=== PATIENT | female | born 1955 | race Caucasian/White ===

== ENCOUNTER 2024-01-27 10:11 | Day surgery (SDC) | payer OTHER, SELFPAY ==
[2024-01-16 06:56] VITALS: BMI 27.4
--- NOTE | 2024-01-23 12:25 | P.CONAN_ITS ---
Documented by User: Julita Jeffers NP 01/23/24 12:26 HPI - Anesthesia Eval Consult details Narrative: 68yo F for Bilateral Blepharoplasty [facility] Past Medical History Medical History (Updated 01/16/24 @ 06:53 by Jeny Johnson RN) Microscopic hematuria Osteoporosis Insomnia GERD (gastroesophageal reflux disease) Ganglion Colon polyp Alopecia Thyroid disease Surgical History Surgical History (Updated 01/16/24 @ 06:53 by Jeny Johnson RN) H/O excision of ganglion cyst History of section History of esophagogastroduodenoscopy (EGD) Social History Social History Are you a primary out of school hours care worker to a significant other at home: No Patient Tobacco Use Status: Former Tobacco user Use of substances other than those prescribed or required for medical reasons: No Advance Directives: No Advance Directives Information Provided: Yes Advance Directives on File: No Recently lost weight without trying: No Eating poorly because of decreased appetite: No Nutrition Risks: No Nutritional Risk Patient : No : No Meds Allergies Allergy/AdvReac Type Severity Reaction Status Date / Time latex Allergy Rash Verified 01/16/24 06:51 Penicillins AdvReac Unknown Verified 01/27/24 12:40 Home Medications ?Medication ?Instructions ?Recorded ?Confirmed ?Last Taken ?Type alendronate 70 mg tablet 70 mg PO QWEEK 01/16/24 01/16/24 Unknown History levothyroxine 75 mcg tablet 75 mcg PO DAILY 01/16/24 01/16/24 Unknown History pantoprazole 40 mg tablet,delayed 40 mg PO DAILY 01/16/24 01/16/24 01/27/24 History release polyethylene glycol 3350 17 17 g PO DAILY 01/16/24 01/16/24 Unknown History gram/dose oral powder (Miralax) Exam Height,Weight and Vital Signs: Height 5 ft 1.81 in Weight 67.6 kg Assessment and Plan Assessment Anesthesia Assessment: Chart Reviewed Documented by User: Vicki Lutz MD 01/27/24 13:41 [facility] Past Medical History Medical History (Updated 01/16/24 @ 06:53 by Jeny Johnson RN) Microscopic hematuria Osteoporosis Insomnia GERD (gastroesophageal reflux disease) Ganglion Colon polyp Alopecia Thyroid disease Family History Family history of problems with anesthesia: No Surgical History Surgical History (Updated 01/16/24 @ 06:53 by Jeny Johnson RN) H/O excision of ganglion cyst History of section History of esophagogastroduodenoscopy (EGD) History of Problems with Anesthesia: No Social History Social History Are you a primary out of school hours care worker to a significant other at home: No Patient Tobacco Use Status: Former Tobacco user Use of substances other than those prescribed or required for medical reasons: No Advance Directives: No Advance Directives Information Provided: Yes Advance Directives on File: No Recently lost weight without trying: No Eating poorly because of decreased appetite: No Nutrition Risks: No Nutritional Risk Patient : No : No Meds Allergies Allergy/AdvReac Type Severity Reaction Status Date / Time latex Allergy Rash Verified 01/16/24 06:51 Penicillins AdvReac Unknown Verified 01/27/24 12:40 Home Medications ?Medication ?Instructions ?Recorded ?Confirmed ?Last Taken ?Type alendronate 70 mg tablet 70 mg PO QWEEK 01/16/24 01/16/24 Unknown History levothyroxine 75 mcg tablet 75 mcg PO DAILY 01/16/24 01/16/24 Unknown History pantoprazole 40 mg tablet,delayed 40 mg PO DAILY 01/16/24 01/16/24 01/27/24 History release polyethylene glycol 3350 17 17 g PO DAILY 01/16/24 01/16/24 Unknown History gram/dose oral powder (Miralax) Exam Airway Mallampati Class: II TM Dist: >3cm Neck ROM: Full Partial: Upper Loose/Missing/Broken Teeth: Lower Assessment and Plan Assessment Anesthesia Assessment: Anesthesia Plan Discussed Final Anesthetic Review Family History of Problems with Anesthesia: No History of Problems with Anesthesia: No NPO: Yes ASA Class: II Final Preanesthetic Review: No Changes in Pt Med Stat, Meds/Allgs Chart Reviewed, Consent Obtained/Reviewed and Anes Risks/Benef Reviewed Patient Risk: Low Procedure Risk: Low Anesthetic Plan Anesthetic Plan: MAC: Disposition: Standard PACU
[2024-01-27] VITALS (10 sets, daily range): BP systolic 75–122; BP diastolic 54–77; PULSE 56–63; RESP 16; TEMP 36.1–36.2; O2SAT 94–98
[2024-01-27] MEDS: Lactated Ringers 500 ML 50 ML IV (13:11)
--- NOTE | 2024-01-27 13:57 | MHC.SHP ---
Pre-Procedural Eval Section A - 24 Hr Update-Section A only Date of Service: 01/27/24 The patient is an INPATIENT: No Changes since office visit: No Cold of Flu in the past 2 weeks, No New Medical Problems, No Changes in Medication and No Patient answered all questions The patient has been examined within 24 hours of the surgical procedure. 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 No changes have occurred unless specified. Time Spent With Patient Time: Total time managing care of this patient today ____ minutes.
--- NOTE | 2024-01-27 13:57 | HO.PNOPHT ---
Ophthalmology Procedure Procedure Date of Service: 01/27/24 Ophthalmology Viscoelastic: Not Applicable Ophthalmology Lenses: Not Applicable Procedure Notes: PREOPERATIVE DIAGNOSIS: Decreased visual field secondary to dermatochalasia POSTOPERATIVE DIAGNOSIS: Same PROCEDURE: Bilateral Blepharoplasty, upper eyelids SURGEON: Mio Izquierdo M.D. ANESTHESIA: Local with sedation ESTIMATED BLOOD LOSS: None COMPLICATIONS: None After obtaining informed consent, the patient was brought to the operating room and placed in supine position. After adequate sedation per Anesthesia, the eyes were prepped and draped in the usual sterile fashion. Attention was directed to the right eye where a double pinch test was completed to assure excess tissue was not removed from the upper lid. The margin was marked at the proposed incision sites. The left eye was done in a similar fashion. 2% Lidocaine with epinephrine was then instilled subcutaneously along the margin of the pre-marked skin incisions. #15 scalpel blade was then utilized to create the incisions. Using a combination of sharp and blunt dissection with Shailesh scissors, the epidermis was removed. Hemostasis was achieved with cautery. 6-0 plain suture was then utilized to close the incision site. Attention was directed to the left upper lid where subcutaneous 2% with Epinephrine Lidocaine was instilled along the pre-marked areas. A #15 scalpel blade was then utilized to create the incisions followed by sharp and blunt dissection with Shailesh scissors to remove the overlying epidermis. Hemostasis was achieved with cautery, followed by closure with 6-0 plain suture. The patient tolerated the procedure well. The patient will be followed up in the a.m. Topical antibiotic ointment was instilled over the incision sites and ice as tolerated for 48 hours.
[2024-01-27] MEDS: fentaNYL citrate/PF 100 MCG/2 ML VIAL 25 MCG IVPUSH (15:45)
[2024-01-27] MEDS: Acetaminophen 325 MG TABLET 650 MG PO (16:15)
--- OUTSIDE RECORDS SUMMARY | 2024-01-30 07:39 | XMS_ITS | Continuity of Care Document ---
Author Organization [facility] Address [address] [place] [address]- Care Team Providers Care Auto Porter Name Role Phone Carter RAMOS, [facility] Primary Care Physician Encounter [facility] Date(s): 08/29/22 - 09/28/22 [facility] [address] [place], [place] [address] Attending Physician: Zara Crocker Admitting Physician: Zara Crocker Referring Physician: AdmtrZara Allergies, Adverse Reactions, Alerts Substance Reaction Severity Status penicillin Vaginal discharge symptom Ac tive Immunizations Given and Recorded Vaccine Date Status Refusal Reason pneumococcal 20-valent conjugate vaccine 11/08/21 Recorded zoster vaccine, inactivated 07/06/21 Recorded zoster vaccine, inactivated 05/06/21 Recorded SARS-CoV-2 (COVID-19) mRNA BNT-162b2 vac 05/20/21 Recorded SARS-CoV-2 (COVID-19) mRNA BNT-162b2 vac 11/20/20 Recorded SARS-CoV-2 (COVID-19) mRNA BNT-162b2 vac 10/30/20 Recorded influenza virus vaccine, inactivated 04/13/21 Ludwig rded influenza virus vaccine, inactivated 04/30/19 Ludwig rded influenza virus vaccine, inactivated 04/11/18 Ludwig rded influenza virus vaccine, inactivated 04/19/17 Ludwig rded influenza virus vaccine, inactivated 04/25/16 Ludwig rded influenza virus vaccine, inactivated 05/12/14 Ludwig rded influenza virus vaccine, inactivated 04/14/13 Ludwig rded tetanus/diphtheria/pertussis, acel(Tdap) 1 01/11/17 Recorded 1Result Comment: given @ [facility] Medications alendronate 70 mg oral tablet 1 tablet = 70 mg, By Mouth, Every week, # 13 tablet, 6 Refills, Maintenance, 07/18/22 12:28:00 EST,Tablet, [facility]/pharmacy #[id number], Partial fill upon patient request if the prescription is for a scheduleII opioid drug., 159, cm, 04/10/22 9:49:00 EDT, Hei... Start Date: 07/18/22 Status: Ordered calcium-vitamin D 600 mg-400 intl units oral tablet 1 tablet, By Mouth, 2 times a day, # 60 tablet, 11 Refills, Maintenance, 07/18/22 12:28:00 EST, Tablet, [id number], Partial fill upon patient request if the prescription is for a schedule II opioid drug., 1 tablet By Mouth 2 times a day, 159,... Start Date: 07/18/22 Status: Ordered Colace sodium 100 mg oral capsule 100 mg, 1, capsule, By Mouth, 2 times a day, PRN, # 100 capsule, Refills 2, Tot. Refills 2, Maintenance, for constipation, 03/27/22 8:31:00 EDT, Route to Pharmacy Electronically, [facility]/pharmacy #[id number], Partial fill upon patient request if the prescriptio... Start Date: 03/27/22 Status: Ordered levothyroxine 75 mcg (0.075 mg) oral tablet 1 tablet, By Mouth, Daily, # 30 tablet, 5 Refills, 01/10/22 14:47:00 EDT, [id number], 159, cm, 12/26/21 14:40:00 EDT, Height, 71.1, kg, 11/20/21 8:24:00 EDT, Dry Weight Start Date: 01/10/22 Status: Ordered levothyroxine 75 mcg (0.075 mg) oral tablet 1 tablet = 75 mcg, By Mouth, Daily, # 30 tablet, 1 Refills, Maintenance, 11/10/21 13:03:00 EDT, Tablet, [facility]/pharmacy #[id number], Partial fill upon patient request if the prescription is for a schedule II opioid drug., 159, cm, 11/08/21 8:32:00 EDT, Height Start Date: 11/10/21 Status: Ordered methocarbamol 750 mg oral tablet 2 tablet = 1,500 mg, By Mouth, 3 times a day, # 84 tablet, 0 Refills, Maintenance, 12/26/21 14:41:00 EDT, Tablet, Partial fill upon patient request if the prescription is for a schedule II opioid drug. Start Date: 12/26/21 Stop Date: 01/09/22 Status: Ordered pantoprazole 40 mg oral delayed release tablet 1 tablet, By Mouth, Daily, # 90 tablet, 1 Refills, 06/04/22 15:58:00 EDT, 159, cm, 04/10/22 9:49:00EDT, Height, 71.1, kg, 11/20/21 8:24:00 EDT, Dry Weight Start Date: 06/04/22 Status: Ordered PEG-3350 with Electrolytes (Eqv-NuLYTELY) oral powder for reconstitution See Instructions, No orange or lemon please. Mix powder with water according to the product label. Follow the [facility] instructions stating when to drin k the prep fluid on the evening befoer the colonoscopy. 8 oz every 20 minutes., # 1 each, 0 Refi... Start Date: 03/27/22 Status: Ordered Senna-Time 8.6 mg oral tablet 1 OR 2 TABLETS, By Mouth, Daily at bedtime, PRN NEEDED FOR CONSTIPATION, # 60 tablet, 0 Refills,Maintenance, 04/25/22 20:10:00 EDT, [id number], 159, cm, 04/10/22 9:49:00 EDT, Height, 71.1, kg, 11/20/21 8:24:00 EDT, Dry Weight Start Date: 04/25/22 Status: Ordered Problem List Condition Confirmation Course Effective Dates Status H ealth Status Informant Alopecia Confirmed Active Anemia Confirmed Active Hypothyroid Confirmed Active Ganglion of left ankle Confirmed Active GERD without esophagitis Confirmed Active Dyslipidemia Confirmed Active Sacroiliitis Confirmed Active Osteoporosis Confirmed Active Acquired hypothyroidism Confirmed Active Insomnia Confirmed Active Reflux Confirmed Active Social History Social History Type Response Smoking Status Former smoker, quit more than 30 days ago; Other: quit smoking 15 years ago; entered on: 12/16/19 Sex Note * Event Display: MM Mammogram Authored Date: * Event Display: MM Mammogram Authored Date: * Event Display: MM Mammogram Authored Date: * Event Display: Non BH Lab Results Authored Date: * Event Display: Non BH Lab Results Authored Date: US Breast * Event Display: Ultrasound Breast Authored Date: * Event Display: Ultrasound Breast Authored Date: Patient Care team information Care Team Personnel Name: Kleber aMchado MD Position: [facility] Primary Care Physician Member Role: PCP Address: Address: [address] [place] [address] Adult [place] [address]- Care Team Related Persons Name: KIM WILD Address: home [address] [place] [id number] Name: INESSA HOLLEY Address: [place] [address]
--- OUTSIDE RECORDS SUMMARY | 2024-01-30 07:39 | XMS_ITS | Continuity of Care Document ---
Author Organization [facility] Address [address] [place] [address]- Care Team Providers Care Optical Glass Inspector Name Role Phone Kleber Machado MD Primary Care Physician Encounter [facility] Date(s): 07/18/22 - 08/17/22 [facility] [address] [place], [place] [address] Attending Physician: Zara Crocker Admitting Physician: Admtr, ArYonas Referring Physician: Admtr, Ar8 Allergies, Adverse Reactions, Alerts Substance Reaction Severity [...] tablet, 6 Refills, Maintenance, 07/18/22 12:28:00 EST,Tablet, [facility]/pharmacy #[id number], Partial fill upon patient request if the prescription is for a scheduleII opioid drug., 159, cm, 04/10/22 9:49:00 EDT, Hei... Start Date: 07/18/22 Status: Ordered calcium-vitamin D 600 mg-400 intl units oral tablet 1 tablet, By Mouth, 2 times a day, # 60 tablet, 11 Refills, Maintenance, 07/18/22 12:28:00 EST, Tablet, [facility]/pharmacy #[id number], Partial fill upon patient [...] 03/27/22 8:31:00 EDT, Route to Pharmacy Electronically, [facility]/pharmacy #[id number], Partial fill upon patient request if the prescriptio... Start Date: 03/27/22 Status: Ordered levothyroxine 75 mcg (0.075 mg) oral tablet 1 tablet, By Mouth, Daily, # 30 tablet, 5 Refills, 01/10/22 14:47:00 EDT, [facility]/pharmacy #[id number], 159, cm, 12/26/21 14:40:00 EDT, Height, 71.1, kg, 11/20/21 8:24:00 EDT, Dry Weight Start Date: 01/10/22 Status: Ordered levothyroxine 75 mcg (0.075 mg) oral tablet 1 tablet = 75 mcg, By Mouth, Daily, # 30 tablet, 1 Refills, Maintenance, 11/10/21 13:03:00 EDT, Tablet, [facility]/pharmacy #[id number], Partial fill upon patient [...] according to the product label. Follow the [facility] instructions stating when to drin k the prep fluid on the evening befoer the colonoscopy. 8 oz every 20 minutes., # 1 each, 0 Refi... Start Date: 03/27/22 Status: Ordered Senna-Time 8.6 mg oral tablet 1 OR 2 TABLETS, By Mouth, Daily at bedtime, PRN NEEDED FOR CONSTIPATION, # 60 tablet, 0 Refills,Maintenance, 04/25/22 20:10:00 EDT, [id number], 159, cm, 04/10/22 9:49:00 EDT, Height, 71.1, [...] team information Care Team Personnel Name: Kleber Machado MD Position: S Primary Care Physician Member Role: PCP Address: Address: [address] [place] [address] Adult [place] [address]- Care Team Related Persons Name: KIM WILD Address: home [address] [place] [id number] Name: INESSA HOLLEY Address: [place] [address]
--- OUTSIDE RECORDS SUMMARY | 2024-01-30 07:39 | XMS_ITS | Continuity of Care Document ---
Author Organization [facility] Address [address] [place] [address]- Care Team Providers Care Client Service Representative Name Role Phone Mart Medeiros MD Primary Care Physician Encounter [facility] Date(s): 07/01/23 - 07/08/23 [facility] [address] [place], [place] [address] Attending Physician: Reba Madsen NP Allergies, Adverse Reactions, Alerts Substance Reaction Severity Status penicillin Vaginal discharge symptom Ac tive Immunizations Given and Recorded Vaccine Date Status Refusal Reason influenza virus vaccine, inactivated 04/04/23 Ludwig rded influenza virus vaccine, inactivated 04/03/22 Ludwig rded influenza virus vaccine, inactivated 04/13/21 Ludwig rded influenza virus vaccine, inactivated 04/30/19 Ludwig rded influenza virus vaccine, inactivated 04/11/18 Ludwig rded influenza virus vaccine, inactivated 04/19/17 Ludwig rded influenza virus vaccine, inactivated 04/25/16 Ludwig rded influenza virus vaccine, inactivated 05/12/14 Ludwig rded influenza virus vaccine, inactivated 04/14/13 Ludwig rded [id number] 12y+ bivalent booster vax 05/21/22 Recorded SARS-CoV-2 mRNA ([id number]-[id number]) vax 11/23/21 Recorded pneumococcal 20-valent conjugate vaccine 11/08/21 Recorded zoster vaccine, inactivated 07/06/21 Recorded zoster vaccine, inactivated 05/06/21 Recorded SARS-CoV-2 (COVID-19) mRNA BNT-162b2 vac 05/20/21 Recorded SARS-CoV-2 (COVID-19) mRNA BNT-162b2 vac 11/20/20 Recorded SARS-CoV-2 (COVID-19) mRNA BNT-162b2 vac 10/30/20 Recorded tetanus/diphtheria/pertussis, acel(Tdap) 1 01/11/17 Recorded 1Result Comment: given @ [facility] Medications acetaminophen 650 mg oral tablet, extended release 2 tablet, By Mouth, 3 times a day, PRN NEEDED, MODERATE PAIN., # 100 tablet, 0 Refills, Maintenance, 11/22/22 15:25:00 EDT, [id number], 157, cm, 11/15/22 8:07:00 EDT, Height, 71.1, kg, 11/20/21 8:24:00 EDT, Dry Weight Start Date: 11/22/22 Status: Ordered alendronate 70 mg oral tablet 1 tablet = 70 mg, By Mouth, Every week, # 13 tablet, 6 Refills, Maintenance, 07/18/22 12:28:00 EST,Tablet, [id number], Partial fill upon patient request if the prescription is for a scheduleII opioid drug., 159, cm, 04/10/22 9:49:00 EDT, Hei... Start Date: 07/18/22 Status: Ordered Knee sleeve/support Knee sleeve/support, See Instructions, # 1 each, Refills 0, Tot. Refills 0, Maintenance, diagnosis:Left knee Osteoarthritis, 05/21/23 10:47:00 EDT, Supply, 157, cm, 05/21/23 10:07:00 EDT, Height, 71.1, kg, 11/20/21 8:24:00 EDT, Dry Weight Start Date: 05/21/23 Status: Ordered levothyroxine 75 mcg (0.075 mg) oral tablet 1 tablet, By Mouth, Daily, # 90 tablet, 1 Refills, Maintenance, 05/17/23 16:51:00 EDT, [id number], 157, cm, 04/22/23 12:52:00 EDT, Height, 71.1, kg, 11/20/21 8:24:00 EDT, Dry Weight Start Date: 05/17/23 Status: Ordered MiraLax oral powder for reconstitution See Instructions, 1 packet By Mouth Daily as needed for constipation dissolve in water or juice, # 30 each, 5 Refills, Maintenance, 04/22/23 13:24:00 EDT, REC Powder, [id number], Partial fillupon patient request if the prescription is for a... Start Date: 04/22/23 Status: Ordered pantoprazole 40 mg oral delayed release tablet 1 tablet, By Mouth, Daily, # 90 tablet, 0 Refills, Maintenance, 02/13/23 9:10:00 EDT, Last script lost, early fill., 157, cm, 11/15/22 8:07:00 EDT, Height, 71.1, kg, 11/20/21 8:24:00 EDT, Dry Weight Start Date: 02/13/23 Status: Ordered Problem List Condition Confirmation Course Effective Dates Status H ealth Status Informant Alopecia Confirmed Active Ganglion of left ankle Confirmed Active GERD with esophagitis; rpt EGD due 2027 Confirmed Active Microscopic hematuria; [facility] Confirmed Active Osteoporosis Confirmed Active Colon polyp Confirmed Active Acquired hypothyroidism Confirmed Active Insomnia Confirmed Active Vital Signs Most recent to oldest [Reference Range]: 1 Height 157 cm (07/01/23 8:55 AM) Weight 67 kg (07/01/23 8:55 AM) Oxygen Saturation [94-100 %] 96 % (07/01/23 8:55 AM) Pulse Rate [55-90 bpm] 74 bpm (07/01/23 8:55 AM) Body Mass Index [18.5-24.99 kg/m2] 27.18 kg/m2 *H* (07/01/23 8:55 AM) Blood Pressure [90-138/55-84 mm Hg] 100/ 67mm Hg (07/01/23 8:55 AM) Mode of Delivery (Oxygen) Room air (07/01/23 8:55 AM) Blood pressure sites Arm, left (07/01/23 8:55 AM) Dry Weight 67 kg (07/01/23 8:55 AM) Weight Obtained Via Standing scale (07/01/23 8:55 AM) Social History Social History Type Response Smoking Status Former smoker, quit more than 30 days ago; Other: quit smoking more than 15 years ago; entered on: 04/22/23 Sex Note * Amy Reynoso: PERFORM, SIGN, VERIFY Event Display: Patient Education/Instruction Authored Date: [id number] [facility] *[facility] Clinical Summary Name KWASI WILD Age 67 Years 1955 PCP Mart Medeiros MD PCP [facility]# [id number] Visit Date 07/01/2023 08:35:00 Additional Instructions: Scheduled Appointments?? Future Appointments ?No Future Appointments Scheduled Follow-Up Instructions ?? Diagnosis Medications: Please continue your medications until treatment is completed or stopped by your provider. Discuss any questions related to medications with your provider. Medications to Continue with No Changes These medications were not printed or sent to your pharmacy Acetaminophen (acetaminophen 650 mg oral tablet, extended release) 2 tab(s) Oral 3 times a day as needed. MODERATE PAIN.. Refills: 0. Next Dose: Alendronate (alendronate 70 mg oral tablet) 1 tab(s) Oral every week. Refills: 6. Next Dose: Durable Medical Equipment (Knee sleeve/support) diagnosis: Left knee Osteoarthritis. Refills: 0. Next Dose: Levothyroxine (levothyroxine 75 mcg (0.075 mg) oral tablet) 1 tab(s) Oral Daily. Refills: 1. Next Dose: Pantoprazole (pantoprazole 40 mg oral delayed release tablet) 1 tab(s) Oral Daily. Refills: 0. Next Dose: Polyethylene Glycol 3350 (MiraLax oral powder for reconstitution) 1 packet By Mouth Daily as neededfor constipation dissolve in water or juice. Refills: 5. Next Dose: Allergy Info:?? penicillin Medications Given This Visit Future Orders ?No future orders Vital Signs Height 157 cm Weight 67 kg BMI 27.18 kg/m2 Blood Pressure 100 mm Hg/67 mm Hg Temperature Pulse Rate 74 bpm Respiratory Rate 02 Sat Mode of Delivery 96 %/Room air You can now view a summary of your hospital visit from the comfort of your home through a free online portal called [employer]. [employer] is a website that allows you to securely view your medical information including discharge summary, medications and follow-up visits. ??You can alsosend a secure electronic message to your doctor???s office to request appointments, renew medications or just ask a question. You can enroll at [email or web address] or register during your next office visit. Disclaimer:?? The information provided is of a general nature and is intended to be used in conjunction with the recommendations and advice of your health care practitioner. ??Every effort has been made to ensure that the information provided is accurate and complete at the time it is provided to you however, as your needs change, or, as new ??information becomes available, different or additional instructions may be required. If you have questions, please consult with your primary care provider or pharmacist, as appropriate. ??This information is not intended to serve as substitution for assessment and evaluation by a qualified health care provider. If you do not have a primary care provider, you may find a [facility] provider by calling [facility] [employer] Link at [phone]. [facility], in keeping with [facility] guidance, no longer requires face masks for staff, patientsor visitors in most situations. Similar to time spent indoors at other locations, there is the chance that you were exposed to respiratory viruses during your time with us (such as flu or COVID-19).? If you develop symptoms concerning for a viral respiratory infection, please seek testing (and treatment if indicated) from your medical provider or home test kit. For information about the plan of care including goals and instructions for your diagnosis, please see the patient education orders section of this document. Patient Education Materials?? The content of this educational material or handout may have been modified, supplemented, or adapted from its original content and format to support your individualized medical care. Patient Care team information Care Team Personnel Name: Mart Medeiros MD Position: S Physician - Primary Care Member Role: PCP Address: Address: [facility] [facility] [place] [address]- Care Team Related Persons Name: KIM WILD Address: [address] [place] [address] Name: INESSA HOLLEY Address: [place] [address]
--- OUTSIDE RECORDS SUMMARY | 2024-01-30 07:39 | XMS_ITS | Continuity of Care Document ---
Author Organization [facility] Address [address] [place] [address]- Care Team Providers Care Instructional Materials Director Name Role Phone Carter RAMOS, [facility] Primary Care Physician Encounter [facility] Date(s): 08/27/22 - 09/26/22 [facility] [address] [place], [place] [address] Allergies, Adverse Reactions, Alerts Substance Reaction Severity [...] 1 01/11/17 Recorded 1Result Comment: given @ [facility] Medications alendronate 70 mg oral tablet 1 [...] 11 Refills, Maintenance, 07/18/22 12:28:00 EST, Tablet, [id number], Partial fill upon patient request if [...] 03/27/22 8:31:00 EDT, Route to Pharmacy Electronically, [id number], Partial fill upon patient request if [...] 1 Refills, Maintenance, 11/10/21 13:03:00 EDT, Tablet, [facility][id number], Partial fill upon patient request if [...] according to the product label. Follow the [facility] instructions stating when to drin k the prep fluid on the evening befoer the colonoscopy. 8 oz every 20 minutes., # 1 each, 0 Refi... Start Date: 03/27/22 Status: Ordered Senna-Time 8.6 mg oral tablet 1 OR 2 TABLETS, By Mouth, Daily at bedtime, PRN NEEDED FOR CONSTIPATION, # 60 tablet, 0 Refills,Maintenance, 04/25/22 20:10:00 EDT, [id number], 159, cm, 04/10/22 9:49:00 EDT, Height, 71.1, [...] 15 years ago; entered on: 12/16/19 Sex Patient Care team information Care Team Personnel Name: Kleber Machado MD Position: S Primary Care Physician Member Role: PCP Address: Address: [address] [place] [address] Adult [facility] [place] [address]- Care Team Related Persons Name: KIM WILD Address: home [address] [place] [address] Name: INESSA HOLLEY Address: [place] [address]
--- OUTSIDE RECORDS SUMMARY | 2024-01-30 07:39 | XMS_ITS | Continuity of Care Document ---
Author Organization [facility] Address [address] [place] [address]- Care Team Providers Care Dean Of Women Name Role Phone Mart Medeiros MD Primary Care Physician Encounter [facility] Date(s): 05/20/23 - 06/19/23 [facility] [address] [place], [place] [address] Allergies, Adverse Reactions, Alerts Substance Reaction Severity [...] influenza virus vaccine, inactivated 04/14/13 Ludwig rded [id number] 12y+ bivalent booster vax 05/21/22 Recorded SARS-CoV-2 mRNA ([id number]) vax 11/23/21 Recorded pneumococcal 20-valent conjugate vaccine 11/08/21 Recorded zoster vaccine, inactivated 07/06/21 Recorded zoster vaccine, inactivated 05/06/21 Recorded SARS-CoV-2 (COVID-19) mRNA BNT-162b2 vac 05/20/21 Recorded SARS-CoV-2 (COVID-19) mRNA BNT-162b2 vac 11/20/20 Recorded SARS-CoV-2 (COVID-19) mRNA BNT-162b2 vac 3/28/21 Recorded tetanus/diphtheria/pertussis, acel(Tdap) 1 01/11/17 Recorded 1Result Comment: given @ [facility] Medications acetaminophen 650 mg oral tablet, extended release 2 tablet, By Mouth, 3 times a day, PRN NEEDED, MODERATE PAIN., # 100 tablet, 0 Refills, Maintenance, 11/22/22 15:25:00 EDT, [id number], 157, cm, 11/15/22 8:07:00 EDT, Height, 71.1, [...] EGD due 2027 Confirmed Active Microscopic hematuria; [facility] Confirmed Active Osteoporosis Confirmed Active Colon polyp Confirmed Active Acquired hypothyroidism Confirmed Active Insomnia Confirmed Active Social History Social History Type Response Smoking Status Former smoker, quit more than 30 days ago; Other: quit smoking more than 15 years ago; entered on: 04/22/23 Sex Patient Care team information Care Team Personnel Name: Mart Medeiros MD Position: [facility] Physician - Primary Care Member Role: PCP Address: Address: [address] [place] [address]- Care Team Related Persons Name: KIM WILD Address: [address] [place] [address] Name: INESSA HOLLEY Address: [place] [address]
--- OUTSIDE RECORDS SUMMARY | 2024-01-30 07:39 | XMS_ITS | Continuity of Care Document ---
Author Organization [facility] Address [address] [place] [address]- Care Team Providers Care Utility Engineer Name Role Phone Kleber Machado MD Primary Care Physician Encounter [facility] Date(s): 03/31/21 - 05/13/21 [facility] [address] [place] [address]- Attending Physician: Celso Dunbar MD Admitting Physician: Celso Dunbar MD Allergies, Adverse Reactions, Alerts Substance Reaction Severity Status penicillin Vaginal discharge symptom Ac tive Immunizations Given and Recorded Vaccine Date Status Refusal Reason SARS-CoV-2 (COVID-19) mRNA BNT-162b2 vac 11/20/20 Recorded SARS-CoV-2 (COVID-19) mRNA BNT-162b2 vac 10/30/20 Recorded tetanus/diphtheria/pertussis, acel(Tdap) 1 01/11/17 Recorded 1Result Comment: given @ [facility] Medications levothyroxine 0.05 mg oral tablet 1 tablet = 50 mcg, By Mouth, Daily, # 60 tablet, 6 Refills, Maintenance, 04/03/21 12:15:00 EDT, Tablet, [id number], Partial fill upon patient request if the prescription is for a schedule II opioid drug., 159, cm, 03/21/21 7:55:00 EDT, Height Start Date: 04/03/21 Status: Ordered omeprazole 20 mg oral enteric coated capsule 1 capsule, By Mouth, Daily, # 90 capsule, 11 Refills, Maintenance, 03/21/21 8:23:00 EDT, [id number], 159, cm, 03/21/21 7:55:00 EDT, Height Start Date: 03/21/21 Status: Ordered Problem List Condition Effective Dates Status Health Status Inform ant Acquired hypothyroidism(Confirmed) Active Alopecia(Confirmed) Active Anemia(Confirmed) Active Hypothyroid(Confirmed) Active Dyslipidemia(Confirmed) Active Ganglion of left ankle(Confirmed) Active GERD without esophagitis(Confirmed) Active Sacroiliitis(Confirmed) Active Insomnia(Confirmed) Active Reflux(Confirmed) Active Social History Social History Type Response Smoking Status Former smoker, quit more than 30 days ago; Other: quit smoking 15 years ago; entered on: 12/16/19 Sex
--- OUTSIDE RECORDS SUMMARY | 2024-01-30 07:39 | XMS_ITS | Continuity of Care Document ---
Author Organization [facility] Address [address] [place] [address]- Care Team Providers Care Visual Design Lead Name Role Phone Mala RAMOS, Mart Primary Care Physician Encounter [facility] Date(s): 01/14/24 - 01/21/24 [facility] [address] [place] [address]- Encounter Diagnosis Acute bronchitis with bronchospasm(Discharge Diagnosis) - 01/14/24 Attending Physician: Courtney Green MD Referring Physician: Mart Medeiros MD Allergies, Adverse Reactions, Alerts Substance Reaction Severity Status penicillin Vaginal discharge symptom Ac tive Latex Rash Active Immunizations Given and Recorded Vaccine Date Status [...] influenza virus vaccine, inactivated 04/14/13 Ludwig rded [id number] 12y+ bivalent booster vax 05/21/22 Recorded SARS-CoV-2 mRNA ([id number]) vax 11/23/21 Recorded pneumococcal 20-valent conjugate vaccine 11/08/21 Recorded zoster vaccine, inactivated 07/06/21 Recorded zoster vaccine, inactivated 05/06/21 Recorded SARS-CoV-2 (COVID-19) mRNA BNT-162b2 vac 05/20/21 Recorded SARS-CoV-2 (COVID-19) mRNA BNT-162b2 vac 11/20/20 Recorded SARS-CoV-2 (COVID-19) mRNA BNT-162b2 vac 10/30/20 Recorded tetanus/diphtheria/pertussis, acel(Tdap) 1 01/11/17 Recorded 1Result Comment: given @ [facility] Medications Aerochamber See Instructions, # 1 each, Maintenance, Use as directed with all inhalors. Dx: acute bronchitis with bronchospasm, 01/14/24 11:02:00 EDT, Supply, 157, cm, 01/14/24 10:24:00 EDT, Height, 67.6, kg, 01/07/24 8:47:00 EDT, Dry Weight Start Date: 01/14/24 Status: Ordered albuterol CFC free 90 mcg/inh inhalation aerosol 2, puffs, Inhalation, Every 4 hours, PRN, use with spacer chamber, # 1 each, Refills 0, Tot. Refills 0, Maintenance, 01/14/24 11:01:00 EDT, Route to Pharmacy Electronically, [id number], [facility]/pharmacy #[id number], may dispense any co... Start Date: 01/14/24 Stop Date: 02/13/24 Status: Ordered alendronate 70 mg oral tablet 1 tablet, By Mouth, Every week, # 12 tablet, 3 Refills, Maintenance, 09/09/23 22:32:00 EST, [facility], 157, cm, 07/01/23 8:55:00 EST, Height, 67, kg, 07/01/23 8:55:00 EST, Dry Weight Start Date: 09/09/23 Status: Ordered Azithromycin 5 Day Dose Pack 250 mg oral tablet See Instructions, as directed on package labeling 2 tablets first day then 1 tablet daily for 4 more days, # 6 tablet, 0 Refills, Maintenance, 01/14/24 11:01:00 EDT, Tablet, [facility]/pharmacy #[id number], Partial fill upon patient request if the prescription is... Start Date: 01/14/24 Status: Ordered Knee sleeve/support Knee sleeve/support, See Instructions, # 1 each, Refills 0, Tot. Refills 0, Maintenance, diagnosis:Left knee Osteoarthritis, 05/21/23 10:47:00 EDT, Supply, 157, cm, 05/21/23 10:07:00 EDT, Height, 71.1, kg, 11/20/21 8:24:00 EDT, Dry Weight Start Date: 05/21/23 Status: Ordered levothyroxine 75 mcg (0.075 mg) oral tablet 1 tablet, By Mouth, Daily, # 90 tablet, 0 Refills, Maintenance, 09/06/23 20:36:00 EST, [facility], 157, cm, 07/01/23 8:55:00 EST, Height, 67, kg, 07/01/23 8:55:00 EST, Dry Weight Start Date: 09/06/23 Status: Ordered MiraLax oral powder for reconstitution [...] tablet, By Mouth, Daily, # 90 tablet, 2 Refills, Maintenance, 09/12/23 15:07:00 EST, Last script lost, early fill., 157, cm, 07/01/23 8:55:00 EST, Height, 67, kg, 07/01/23 8:55:00 EST, Dry Weight Start Date: 09/12/23 Status: Ordered Problem List Condition Confirmation Course Effective Dates Status H ealth Status Informant Alopecia Confirmed Active Ganglion of left ankle Confirmed Active GERD with esophagitis; [facility] EGD due 2027 Confirmed Active Microscopic hematuria; [facility] Confirmed Active Osteoporosis Confirmed Active Colon polyp Confirmed Active Acquired hypothyroidism Confirmed Active Insomnia Confirmed Active Diagnosis Diagnosis Type Effective Dates Health Status Clinical Service Informant Acute bronchitis with bronchospasm Discharge Diagnosis 01/14/24 Vital Signs Most recent to oldest [Reference Range]: 1 Height 157 cm (01/14/24 10:24 AM) Oxygen Saturation [94-100 %] 100 % (01/14/24 10:24 AM) Pulse Rate [55-90 bpm] 70 bpm (01/14/24 10:24 AM) Blood Pressure [90-138/55-84 mm Hg] 109/ 74mm Hg (01/14/24 10:24 AM) Temperature [96.8-100.4 DegF] 98.1 DegF (01/14/24 10:24 AM) Mode of Delivery (Oxygen) Room air (01/14/24 10:24 AM) Blood pressure sites Arm, left (01/14/24 10:24 AM) Temperature Route Oral (01/14/24 10:24 AM) Social History Social History Type Response Smoking Status Former smoker, quit more than 30 days ago entered on: 01/07/24 Sex Note * Bernabe Soto: PERFORM Event Display: Patient Education/Instruction Authored Date: [id number] Ambulatory Adult Visit Summary [facility] [address] [place] [address] Name: KWASI WILD : 1955?? Visit: 01/14/2024 09:26?? Ambulatory Visit Instructions ?? Your Care Team Primary Care Provider Mart Medeiros MD? This Visit Provider [facility] Your Diagnosis Acute bronchitis with bronchospasm Vitals Signs Temperature: 98.1 DegF Height: 157 cm Pulse Rate: 70 bpm ?? Systolic Blood Pressure: 109 mm Hg ?? Diastolic Blood Pressure: 74 mm Hg ?? Oxygen Saturation: 100 % ?? Medications The list below reflects the information in our records and provided by you today along with any changes made during this visit. Please continue your medications until treatment is completed or stopped by your provider. If this is different from the information you have or there are other questions,please contact the prescribing provider. What How Much When Why Instructions New Albuterol (albuterol CFC free 90 mcg/ inh inhalation aerosol) 2 puff(s) Inhalation Every 4 hours as needed for Cough, Wheezing/Shortness of Breath Duration: 30 Days use with spacer chamber ?? Pickup at [facility]/pharmacy #[id number] New Azithromycin (Azithromycin 5 Day Dose Pack 250 mg oral tablet) See instructions as directed on package labeling 2 tablets first day then 1 tablet daily for 4 more days ?? Pickup at [facility]/pharmacy #1026 New Benzonatate (benzonatate 200 mg oral capsule) 1 capsule Oral 3 times a day as needed for as needed for cough Duration: 7 Days Pickup at [facility]/pharmacy #[id number] New Durable Medical Equipment (Aerochamber) See instructions Use as directed with all inhalors. Dx: acute bronchitis with bronchospasm ?? Pickup at [facility]/pharmacy #1026 New PredniSONE (predniSONE 20 mg oral tablet) 2 tab(s) Oral Daily Duration: 5 Days 1st dose now, then in AM daily. Take with food. ?? Pickup at [facility]/pharmacy #1026 Unchanged Alendronate (alendronate 70 mg oral tablet) 1 tab(s) Oral Every week Unchanged Durable Medical Equipment (Knee sleeve/ support) See instructions Unilateral primary osteoarthritis, left knee diagnosis: Left knee Osteoarthritis ?? Unchanged Levothyroxine (levothyroxine 75 mcg (0.075 mg) oral tablet) 1 tab(s) Oral Daily Unchanged Pantoprazole (pantoprazole 40 mg oral delayed release tablet) 1 tab(s) Oral Daily Unchanged Polyethylene Glycol 3350 (MiraLax oral powder for reconstitution) See instructions 1 packet By Mouth Daily as needed for constipation dissolve in water or juice ?? Pharmacy Information [facility]/pharmacy #[id number]: [address], [place] [phone] Medications and Immunizations Administered Medications Given During Visit No medications given during this visit.?? Allergies (NKA means No Known Allergies) Latex??(Rash) penicillin??(Vaginal discharge symptom) Education Materials Below is the list of Educational Leaflet Providered with your Visit summary. Web[employer] Ignite Patient Education - Using a Metered-Dose Inhaler with a Spacer?? Common Emergency Awareness Tips IS IT A STROKE? Act FAST and Check for these signs: FACE Does the face look uneven? ARM Does one arm drift down? SPEECH Does their speech sound strange? TIME Call at any sign of stroke ?? Heart Attack Signs Chest discomfort: Most heart attacks involve discomfort in the center of the chest and lasts more than a few minutes, or goes away and comes back. It can feel like uncomfortable pressure, squeezing, fullness or pain. Discomfort in upper body: Symptoms can include pain or discomfort in one or both arms, back, neck, jaw or stomach. Shortness of breath: With or without discomfort. Other signs: Breaking out in a cold sweat, nausea, or lightheaded. Remember, MINUTES DO MATTER. If you experience any of these heart attack warning signs, call to get immediate medical attention! ?? Smoking can increase your chances of developing chronic health problems and can cause harmful effects to other family members in your house. If you smoke, you are strongly encouraged to quit. Please call [employer] at [phone] or [phone] ([phone]) or log in to [email or web address] for referrals to smoking cessation programs. ?? The National Suicide Prevention Hotline is available 25/02 if you or someone you know needs to find a reason to keep living. By calling 8-268-783-RFinity (0016) you'll be connected to a skilled, trained counselor at a crisis center in your area. [facility] Portal You can view and manage your care through the patient portal or by using a health care aniceto of your choosing. [employer] is a website that allows you to securely view your medical information including your hospital discharge summary, office visit summaries, medications and follow-up visits. You can also request appointments, renew medications, and request access to your medical information using a health care aniceto of your choosing, or just ask a question. You can enroll at [email or web address] or register during your next office visit. [facility], in keeping with [facility] guidance, no longer requires face masks for staff, patientsor visitors in most situations. Similiar to time spent indoors at other locations, there is the chance that you were exposed to repiratory viruses during your time with us (such as flu or COVID-19). If you develop symptoms concerning for a viral respiratory infection, please seek testing (and treatment if indicated) from your medical provider or home test kit. ?? Disclaimer: The information provided is of a general nature and is intended to be used in conjunction with the recommendations and advice of your health care practitioner. Every effort has been made to ensure that the information provided is accurate and complete at the time it is provided to you however, as your needs change, or, as new information becomes available, different or additional instructions may be required. ?? If you have questions, please consult with your primary care provider or pharmacist, as appropriate. This information is not intended to serve as substitution for assessment and evaluation by a qualified health care provider. If you do not have a primary care provider, you may find a [facility] provider by calling [employer] at [phone]. * Courtney Green MD: PERFORM Event Display: Patient Education Leaflets Authored Date: Using a Metered-Dose Inhaler with a Spacer ?? [address]17 Using a Metered-Dose Inhaler with a Spacer To control asthma, you need to use your medicines the right way. Some medicines are inhaled using adevice called a metered-dose??inhaler (MDI). MDIs deliver medicine with a fine spray. Your healthcare provider has prescribed a special chamber or spacer to use with your inhaler. A spacer increases the amount of medicine that goes to your lungs by preventing it from landing on your tongue or the back of your mouth. This reduces the irritation to your throat. It helps increase the amount of medicine that makes it to your lungs. It may make your medicine work better. Steps for using an inhaler with a spacer Step 1: ??? Wash your hands. ??? Check the expiration date and the counter of the inhaler, if present. ??? Remove the cap from the inhaler. ??? Shake the inhaler well. If the inhaler is being used for the first time or has not been used for a while, prime it as directed by the product maker. Make sure to prime the inhaler in the air away from your face. ??? Check to make sure the metal canister is put correctly into the plastic boot, or irvin, of the inhaler. See the package insert for instructions. ??? Attach the spacer to the inhaler. Then remove the cap from the spacer mouthpiece. Step 2: ??? Breathe out normally, away from the spacer. ??? Put the mouthpiece of the spacer past your teeth and above your tongue. Close your lips tightly around it. ??? Keep your chin up or level. Step 3: ??? Press down on the canister 1 time to release the medicine ??? Then breathe in through your mouth as slowly and deeply as you can. This should take??about 5 to 10??seconds. If you breathe too quickly, you may hear a whistling sound in certain spacers. Step 4: ??? Take the spacer mouthpiece out of your mouth. Close your lips. ??? Hold your breath up to 10 seconds if you are able. ??? Slowly breathe out through your mouth. ??? After using your inhaler, rinse your mouth with water by swishing, gargling, and spitting out the water. Never swallow it. Inhaledcorticosteroids can cause a fungal infection called thrush in your mouth and throat. ??? Wash your hands again when you are done. ?? Important If you???re prescribed more than 1 puff of medicine at a time,??wait up to 60 seconds, or as directed by your healthcare provider, between puffs. This number may be different for different medicines.??Shake the inhaler again. Then repeat steps 2 to 4. You can find important information about the medicine in the package insert. This is the paper thatcomes with the medicine. If you use more than one inhaler, ask your healthcare provider which one to use first. Your healthcare provider or pharmacist can show you how to use your inhaler and spacer the right way. Know how many puffs are left in your inhaler. That way you won't run out of your medicine when you need it. Ask your provider how to know how many puffs are left. Keeping your inhaler and spacer clean will help to keep your inhaler working correctly. Read the package insert for care and cleaning instructions. ?? Last Reviewed Date: 2023 ?? 8305-7777 [employer]. All rights reserved. This information is not intended as a substitute for professional medical care. Always follow your healthcare professional's instructions. ?? Patient Care team information Care Team Personnel Name: Mart Medeiros MD Position: S Physician - Primary Care Member Role: PCP Address: Address: [address] [place] [address]- Care Team Related Persons Name: KIM WILD Address: home [address] [place] [address] Name: INESSA HOLLEY Address: [place] [address]
--- OUTSIDE RECORDS SUMMARY | 2024-01-30 07:39 | XMS_ITS | Continuity of Care Document ---
Author Organization [facility] Address [address] [place] [address]- Care Team Providers Care Skatesman Name Role Phone Not on Staff, PCP Primary Care Physician Unavail able [place] [facility] [place] 12/16/19 - 12/23/19 [facility] [address] [place] [address]- [facility] Encounter Diagnosis GERD without esophagitis(Discharge Diagnosis) - 12/16/19 Hypothyroidism, unspecified(Discharge Diagnosis) - 12/16/19 Strain of left groin(Discharge Diagnosis) - 12/16/19 Attending Physician: Kleber Machado MD Allergies, Adverse Reactions, Alerts Substance Reaction Severity Status penicillin Vaginal discharge symptom Ac tive Medications levothyroxine 75 mcg (0.075 mg) oral tablet 1 tablet = 75 mcg, By Mouth, Daily, # 30 tablet, 0 Refills, Maintenance, 12/16/19 10:19:00 EDT, Tablet, [id number] Start Date: 12/16/19 Status: Ordered omeprazole 20 mg oral enteric coated capsule 1 capsule = 20 mg, By Mouth, Daily, TAKE 1 CAPSULE BY MOUTH EVERY DAY, # 30 capsule, 0 Refills, Maintenance, 12/16/19 10:19:00 EDT, [id number] Start Date: 12/16/19 Status: Ordered Problem List Condition Effective Dates Status Health Status Inform ant Anemia(Confirmed) Active GERD without esophagitis(Confirmed) Active Hypothyroid(Confirmed) Active Reflux(Confirmed) Active Diagnosis Diagnosis Type Effective Dates Health Status Clinical Service Informant Hypothyroidism, unspecified Discharge Diagnosis 12/16/19 GERD without esophagitis Discharge Diagnosis 12/16/19 Strain of left groin Discharge Diagnosis 12/16/19 Procedures Procedure Date Related Diagnosis Body Site Status Caesarean section Complet ed Tendinitis of left hand C ompleted Social History Social History Type Response Smoking Status Former smoker, quit more than 30 days ago; Other: quit smoking 15 years ago; entered on: 12/16/19 Sex
--- OUTSIDE RECORDS SUMMARY | 2024-01-30 07:39 | XMS_ITS | Continuity of Care Document ---
Author Organization [facility] Address [address] [place] [address]- Care Team Providers Care Client Relations Representative Name Role Phone Mart Medeiros MD Primary Care Physician En[place] [facility] Date(s): 09/10/23 - 10/10/23 [facility] [address] [place], [place] [address] Allergies, Adverse Reactions, Alerts Substance Reaction [...] influenza virus vaccine, inactivated 04/14/13 Ludwig rded [id number] 12y+ bivalent booster vax 05/21/22 Recorded SARS-CoV-2 mRNA (uynjpiw-leow-svwcf) vax 11/23/21 Recorded pneumococcal 20-valent conjugate vaccine 11/08/21 Recorded zoster vaccine, inactivated 07/06/21 Recorded zoster vaccine, inactivated 05/06/21 Recorded SARS-CoV-2 (COVID-19) mRNA BNT-162b2 vac 05/20/21 Recorded SARS-CoV-2 (COVID-19) mRNA BNT-162b2 vac 11/20/20 Recorded SARS-CoV-2 (COVID-19) mRNA BNT-162b2 vac 10/30/20 Recorded tetanus/diphtheria/pertussis, acel(Tdap) 1 01/11/17 Recorded 1Result Comment: given @ [facility] Medications acetaminophen 650 mg oral tablet, extended release 2 tablet, By Mouth, 3 times a day, PRN NEEDED, MODERATE PAIN., # 100 tablet, 0 Refills, Maintenance, 11/22/22 15:25:00 EDT, [facility], 157, cm, 11/15/22 8:07:00 EDT, Height, 71.1, kg, 11/20/21 8:24:00 EDT, Dry Weight Start Date: 11/22/22 Status: Ordered alendronate 70 mg oral tablet 1 tablet, By Mouth, Every week, # 12 tablet, 3 Refills, Maintenance, 09/09/23 22:32:00 EST, [facility], 157, cm, 07/01/23 8:55:00 EST, Height, 67, kg, 07/01/23 8:55:00 EST, Dry Weight Start Date: 09/09/23 Status: Ordered calcium-vitamin D 600 mg-400 intl units oral tablet 1 tablet, By Mouth, 2 times a day, # 180 tablet, 3 Refills, Maintenance, 09/09/23 22:32:00 EST, [facility], 90, TAKE 1 TABLET BY MOUTH TWICE A DAY, 157, cm, 07/01/23 8:55:00 EST, Height, 67, kg,07/01/23 8:55:00 EST, Dry Weight Start Date: 09/09/23 Status: Ordered Knee sleeve/support Knee sleeve/support, See [...] Refills, Maintenance, 09/06/23 20:36:00 EST, [facility], 157, cm, 07/01/23 8:55:00 EST, Height, 67, [...] EGD due 2027 Confirmed Active Microscopic hematuria; [facility] Confirmed Active Osteoporosis Confirmed Active Colon [...] Primary Care Member Role: PCP Address: Address: [address] [place] [address]- Care Team Related Persons Name: KIM WILD Address: home [address] [place] [address] Name: INESSA HOLLEY Address: [place] [address]
--- OUTSIDE RECORDS SUMMARY | 2024-01-30 07:39 | XMS_ITS | Continuity of Care Document ---
Author Organization [facility] Address [address] [place] [address]- Care Team Providers Care Patent Clerk Name Role Phone Kleber Machado MD Primary Care Physician [id number]21[facility] [address] [place] [address]- [facility] Encounter Diagnosis GERD without esophagitis(Discharge Diagnosis) - 03/14/20 Acquired hypothyroidism(Discharge Diagnosis) - 03/14/20 Sacroiliitis(Discharge Diagnosis) - 03/14/20 Dyslipidemia(Discharge Diagnosis) - 03/14/20 Attending Physician: Kleber Machado MD Allergies, Adverse Reactions, Alerts Substance Reaction Severity Status penicillin Vaginal discharge symptom Ac tive Medications levothyroxine 75 mcg (0.075 mg) oral tablet 1 tablet = 75 mcg, By Mouth, Daily, # 90 tablet, 11 Refills, Maintenance, 01/18/20 16:26:00 EDT, Tablet, [id number] Start Date: 01/18/20 Status: Ordered omeprazole 20 mg oral enteric coated capsule 1 capsule = 20 mg, By Mouth, Daily, TAKE 1 CAPSULE BY MOUTH EVERY DAY, # 90 capsule, 11 Refills, Maintenance, 01/18/20 16:26:00 EDT, [id number] Start Date: 01/18/20 Status: Ordered Problem List Condition Effective Dates Status Health Status Inform ant Acquired hypothyroidism(Confirmed) Active Alopecia(Confirmed) Active Anemia(Confirmed) Active Hypothyroid(Confirmed) Active Dyslipidemia(Confirmed) Active GERD without esophagitis(Confirmed) Active Sacroiliitis(Confirmed) Active Reflux(Confirmed) Active Diagnosis Diagnosis Type Effective Dates Health Status Clinical Service Informant GERD without esophagitis Discharge Diagnosis 03/14/20 Acquired hypothyroidism Discharge Diagnosis 03/14/20 Sacroiliitis Discharge Diagnosis 03/14/20 Dyslipidemia Discharge Diagnosis 03/14/20 Vital Signs Most recent to oldest [Reference Range]: 1 Height 159.00 cm (03/14/20 10:21 AM) Weight 67.1 kg (03/14/20 10:21 AM) Oxygen Saturation [94-100 %] 97 % (03/14/20 10:21 AM) Pulse Rate [55-90 bpm] 67 bpm (03/14/20 10:21 AM) Body Mass Index [18.5-24.99] 26.54 *H* (03/14/20 10:21 AM) Blood Pressure [90-138/55-84 mm Hg] 114/ 71mm Hg (03/14/20 10:21 AM) Temperature [96.8-100.4 DegF] 96.9 DegF (03/14/20 10:21 AM) Blood pressure sites Arm, left (03/14/20 10:21 AM) Weight Obtained Via Standing scale (03/14/20 10:21 AM) Social History Social History Type Response Smoking Status Former smoker, quit more than 30 days ago; Other: quit smoking 15 years ago; entered on: 12/16/19 Sex
--- OUTSIDE RECORDS SUMMARY | 2024-01-30 07:39 | XMS_ITS | Continuity of Care Document ---
Author Organization [facility] Address [address] [place] [address]- Care Team Providers Care Parts Finisher Name Role Phone Kleber Machado MD Primary Care Physician [phone] [id number]20 [facility] [address] [place] [address]- [facility] Encounter Diagnosis Ganglion cyst(Discharge Diagnosis) - 04/27/20 Attending Physician: Kleber Machado MD Allergies, Adverse [...] Diagnosis Diagnosis Type Effective Dates Health Status Cl inical Service Informant Ganglion cyst Discharge Diagnosis 04/27/20 Vital Signs Most recent to oldest [Reference Range]: 1 Height 159.00 cm (04/27/20 3:36 PM) Weight 68.5 kg (04/27/20 3:36 PM) Oxygen Saturation [94-100 %] 98 % (04/27/20 3:36 PM) Pulse Rate [55-90 bpm] 73 bpm (04/27/20 3:36 PM) Body Mass Index [18.5-24.99] 27.1 *H* (04/27/20 3:36 PM) Blood Pressure [90-138/55-84 mm Hg] 110/ 60mm Hg (04/27/20 3:36 PM) Temperature [96.8-100.4 DegF] 97.8 DegF (04/27/20 3:36 PM) Mode of Delivery (Oxygen) Room air (04/27/20 3:36 PM) Blood pressure sites Arm, left (04/27/20 3:36 PM) Temperature Route Temporal (04/27/20 3:36 PM) Weight Obtained Via Standing scale (04/27/20 3:36 PM) Social History Social History Type Response Smoking Status Former smoker, quit more than 30 days ago; Other: quit smoking 15 years ago; entered on: 12/16/19 Sex
--- OUTSIDE RECORDS SUMMARY | 2024-01-30 07:39 | XMS_ITS | Continuity of Care Document ---
Author Organization [facility] Address [address] [place] [address]- Care Team Providers Care Deputy Sheriff/Investigator Name Role Phone Kleber Machado MD Primary Care Physician [place] [facility] - 04/26/22 [facility] [address] [place] [address]- Attending Physician: Zara Crocker Admitting Physician: AdmtrZara Referring Physician: Admtr, Ar8 Allergies, Adverse Reactions, [...] 1 01/11/17 Recorded 1Result Comment: given @ [facility] Medications Colace sodium 100 mg oral capsule 100 mg, 1, capsule, By Mouth, 2 times a day, PRN, # 100 capsule, Refills 2, Tot. Refills 2, Maintenance, for constipation, 03/27/22 8:31:00 EDT, Route to Pharmacy Electronically, [facility]/pharmacy #[id number], Partial fill upon patient request if the prescriptio... Start Date: 03/27/22 Status: Ordered levothyroxine 75 mcg (0.075 mg) oral tablet 1 tablet, By Mouth, Daily, # 30 tablet, 5 Refills, 01/10/22 14:47:00 EDT, [facility]/pharmacy #[id number], 159, cm, 12/26/21 14:40:00 EDT, Height, 71.1, kg, 11/20/21 8:24:00 EDT, Dry Weight Start Date: 01/10/22 Status: Ordered levothyroxine 75 mcg (0.075 mg) oral tablet 1 tablet = 75 mcg, By Mouth, Daily, # 30 tablet, 1 Refills, Maintenance, 11/10/21 13:03:00 EDT, Tablet, [facility]/pharmacy #[id number], Partial fill upon patient request [...] Mouth, Daily, # 90 tablet, 1 Refills, 159, cm, 11/20/21 8:24:00 EDT, Height, 71.1, kg,11/20/21 8:24:00 EDT, Dry Weight Start Date: 11/28/21 Status: Ordered PEG-3350 with Electrolytes (Eqv-NuLYTELY) oral powder for reconstitution See Instructions, No orange or lemon please. Mix powder with water according to the product label. Follow the [facility] instructions stating when to drin k the prep fluid on the evening befoer the colonoscopy. 8 oz every 20 minutes., # 1 each, 0 Refi... Start Date: 03/27/22 Status: Ordered Senna-Time 8.6 mg oral tablet 1 OR 2 TABLETS, By Mouth, Daily at bedtime, PRN NEEDED FOR CONSTIPATION, # 60 tablet, 0 Refills,Maintenance, 04/25/22 20:10:00 EDT, [id number], 159, cm, 04/10/22 9:49:00 EDT, Height, 71.1, kg, 11/20/21 8:24:00 EDT, Dry Weight Start Date: 04/25/22 Status: Ordered Problem List Condition Effective Dates Status Health Status Inform ant Alopecia(Confirmed) Active Anemia(Confirmed) Active Hypothyroid(Confirmed) Active Ganglion of left ankle(Confirmed) Active GERD without esophagitis(Confirmed) Active Dyslipidemia(Confirmed) Active Sacroiliitis(Confirmed) Active Acquired hypothyroidism(Confirmed) Active Insomnia(Confirmed) Active Reflux(Confirmed) Active Social History Social History Type Response Smoking Status Former smoker, quit more than 30 days ago; Other: quit smoking 15 years ago; entered on: 12/16/19 Sex Care Team Personnel Name: Kleber Machado MD Address: [address] [place] [address] Adult & Pediatric Medicine [address]
--- OUTSIDE RECORDS SUMMARY | 2024-01-30 07:39 | XMS_ITS | Continuity of Care Document ---
Author Organization [facility] Address [address] [place] [address]- Care Team Providers Care Cena Name Role Phone Carter RAMOS, [facility] Primary Care Physician Encounter [facility] Date(s): 01/23/23 - 02/22/23 [facility] [address] [place], [place] [address] Allergies, Adverse Reactions, Alerts Substance Reaction Severity Status penicillin Vaginal discharge symptom Ac tive Immunizations Given and Recorded Vaccine Date Status Refusal Reason [id number] 12y+ bivalent booster vax 05/21/22 Recorded influenza virus vaccine, inactivated 04/03/22 Ludwig rded influenza virus vaccine, inactivated 04/13/21 Ludwig rded influenza virus vaccine, inactivated 04/30/19 Ludwig rded influenza virus vaccine, inactivated 04/11/18 Ludwig rded influenza virus vaccine, inactivated 04/19/17 Ludwig rded influenza virus vaccine, inactivated 04/25/16 Ludwig rded influenza virus vaccine, inactivated 05/12/14 Ludwig rded influenza virus vaccine, inactivated 04/14/13 Ludwig rded SARS-CoV-2 mRNA ([id number]) vax 11/23/21 Recorded pneumococcal 20-valent conjugate vaccine [...] Refills, Maintenance, 11/22/22 15:25:00 EDT, [id number], 157, cm, 11/15/22 8:07:00 EDT, Height, 71.1, [...] day, 159,... Start Date: 07/18/22 Status: Ordered diclofenac 1% topical gel See Instructions, PLEASE SEE ATTACHED FOR DETAILED DIRECTIONS, # 300 Gm, 0 Refills, Maintenance, 11/22/22 15:25:00 EDT, [facility], 30, PLEASE SEE ATTACHED FOR DETAILED DIRECTIONS, 157, cm, 11/15/22 8:07:00 EDT, Height, 71.1, kg, 11/20/21 8:24:00... Start Date: 11/22/22 Status: Ordered levothyroxine 75 mcg (0.075 mg) oral tablet 1 tablet, By Mouth, Daily, # 90 tablet, 1 Refills, Maintenance, 11/15/22 20:06:00 EDT, [facility], 157, cm, 11/15/22 8:07:00 EDT, Height, 71.1, kg, 11/20/21 8:24:00 EDT, Dry Weight Start Date: 11/15/22 Status: Ordered Melatonin Daily at bedtime, 0 Refills, Maintenance, 11/15/22 8:41:00 EDT, Partial fill upon patient request if the prescription is for a schedule II opioid drug. Start Date: 11/15/22 Status: Ordered MiraLax oral powder for reconstitution See Instructions, 1 packet By Mouth Daily dissolve in water or juice, # 12 each, 0 Refills, Acute 01/17/24 9:11:00 EDT, 01/16/23 9:11:00 EDT, REC Powder, [id number], Partial fill upon patientrequest if the prescription is for a schedule II o... Start Date: 01/16/23 Stop Date: 01/17/24 Status: Ordered MiraLax oral powder for reconstitution = 17 Gm, By Mouth, Daily, PRN Constipation, dissolve in water before taking, # 255 Gm, 0 Refills, Acute 01/16/24 14:53:00 EDT, 01/15/23 14:53:00 EDT, REC Powder, [id number], Partial fill uponpatient request if the prescription is for a schedu... Start Date: 01/15/23 Stop Date: 01/16/24 Status: Ordered pantoprazole 40 mg oral delayed [...] Active Anemia Confirmed Active Hypothyroid Confirmed Active Left foot pain Confirmed Active Ganglion of left ankle Confirmed Active GERD without esophagitis Confirmed Active Dyslipidemia Confirmed Active Sacroiliitis Confirmed Active Osteoporosis Confirmed Active *[id number] Rivet Hole Puncher Nasima Berumen Confirmed Active Acquired hypothyroidism Confirmed Active Insomnia Confirmed Active Reflux Confirmed Active Social History Social History Type Response Smoking Status Former smoker, quit more than 30 days ago; Other: quit smoking 15 years ago; entered on: 12/16/19 Sex Patient Care team information Care Team Personnel Name: Kleber Machado MD Position: S Physician - Primary Care Member Role: PCP Address: Address: [address] [place] [address] Adult [place] [address]- Care Team Related Persons Name: KIM WILD Address: home [address] [place] [address] Name: INESSA H[place]LEY Address: [place] [address]
--- OUTSIDE RECORDS SUMMARY | 2024-01-30 07:39 | XMS_ITS | Continuity of Care Document ---
Author Organization [facility] Address [address] [place] [address]- Care Team Providers Care Wax Pattern Coater Name Role Phone Kleber Machado MD Primary Care Physician [place] [facility] [place] 02/28/22 - 03/30/22 [facility] [address] [place], [place] [address] Allergies, Adverse Reactions, Alerts Substance Reaction [...] Comment: given @ [facility] Medications Colace sodium 100 mg oral capsule 100 mg, 1, capsule, By Mouth, 2 times a day, PRN, # 100 capsule, Refills 2, Tot. Refills 2, Maintenance, for constipation, 03/27/22 8:31:00 EDT, Route to Pharmacy Electronically, [facility]/pharmacy #[id number], Partial fill upon patient [...] 1 Refills, Maintenance, 11/10/21 13:03:00 EDT, Tablet, [id number], Partial fill upon [...] Dry Weight Start Date: 11/28/21 Status: Ordered Paxlovid 150 mg-100 mg oral tablet See Instructions, 300mg nirmatrelvir (two 150mg tablets) with 100mg ritonavir (one tablet). All 3 tablets taken together twice daily By Mouth for 5 days, with or without food, # 30 tablet, 0 Refills,Maintenance, 03/01/22 11:55:00 EDT, [facility] Start Date: 03/01/22 Status: Ordered PEG-3350 with Electrolytes (Eqv-NuLYTELY) oral powder for reconstitution See Instructions, No orange or lemon please. Mix powder with water according to the product label. Follow the [facility] instructions stating when to drin k the prep fluid on the evening befoer the colonoscopy. 8 oz every 20 minutes., # 1 each, 0 Refi... Start Date: 03/27/22 Status: Ordered Senna 8.6 mg oral tablet 1 or 2 tablets, By Mouth, Daily at bedtime, PRN, # 60 tablet, Refills 0, Tot. Refills 0, Acute, Constipation, 03/28/23 8:44:00 EDT, 03/27/22 8:44:00 EDT, Route to Pharmacy Electronically, [facility]/pharmacy #[id number] Tablet, Partial fill upon patient request if... Start Date: 03/27/22 Stop Date: 03/28/23 Status: Ordered Problem List Condition Effective Dates [...] Team Personnel Name: Kleber Machado MD Address: [address] [place] [address] Adult & Pediatric Medicine [address]
--- OUTSIDE RECORDS SUMMARY | 2024-01-30 07:39 | XMS_ITS | Continuity of Care Document ---
Author Organization [facility] Address [address] [place] [address]- Care Team Providers Care Academic Registrar Name Role Phone Kleber Machado MD Primary Care Physician En[place] [facility] [place] Date(s): 07/20/20 - 08/19/20 [facility] [address] [place], [place] [address] [[email or web address] Attending Physician: Zara Crocker Admitting Physician: Zara Crocker Referring Physician: AdmtrZara Allergies, Adverse Reactions, Alerts Substance Reaction Severity Status penicillin Vaginal discharge symptom Ac tive Immunizations Given and Recorded Vaccine Date Status Refusal Reason tetanus/diphtheria/pertussis, acel(Tdap) 1 01/11/17 Recorded 1Result Comment: given @ [facility] Medications levothyroxine 75 mcg (0.075 mg) oral [...] without esophagitis(Confirmed) Active Sacroiliitis(Confirmed) Active Reflux(Confirmed) Active Social History Social History Type Response Smoking Status Former smoker, quit more than 30 days ago; Other: quit smoking 15 years ago; entered on: 12/16/19 Sex
--- OUTSIDE RECORDS SUMMARY | 2024-01-30 07:39 | XMS_ITS | Continuity of Care Document ---
Author Organization [facility] Address [address] [place] [address]- Care Team Providers Care Hat Cutter Name Role Phone Kleber Machado MD Primary Care Physician [phone] [place] [facility] [place] Date(s): 04/25/20 - 05/25/20 [facility] [address] [place] [address]- [facility] Allergies, Adverse Reactions, Alerts Substance Reaction Severity [...]
--- OUTSIDE RECORDS SUMMARY | 2024-01-30 07:39 | XMS_ITS | Continuity of Care Document ---
Author Organization [facility] Address [address] [place] [address]- Care Team Providers Care Business Office Coordinator Name Role Phone Mart Medeiros MD Primary Care Physician [phone] [place] [facility] [place] 05/21/23 - 06/20/23 [facility] [address] [place], [place] [address] Attending Physician: Zara Crocker Admitting Physician: [...] influenza virus vaccine, inactivated 04/14/13 Ludwig rded [id number] 12y+ bivalent booster vax 05/21/22 Recorded SARS-CoV-2 mRNA ([id number]) vax 11/23/21 Recorded pneumococcal 20-valent conjugate vaccine 11/08/21 Recorded zoster vaccine, inactivated 07/06/21 Recorded zoster vaccine, inactivated 05/06/21 Recorded SARS-CoV-2 (COVID-19) mRNA BNT-162b2 vac 05/20/21 Recorded SARS-CoV-2 (COVID-19) mRNA BNT-162b2 vac 11/20/20 Recorded SARS-CoV-2 (COVID-19) mRNA BNT-162b2 vac 10/30/20 Recorded tetanus/diphtheria/pertussis, acel(Tdap) 1 01/11/17 Recorded 1Result Comment: given @ [facility] Medications acetaminophen 650 mg oral tablet, extended release 2 tablet, By Mouth, 3 times a day, PRN NEEDED, MODERATE PAIN., # 100 tablet, 0 Refills, Maintenance, 11/22/22 15:25:00 EDT, [id number], 157, cm, 11/15/22 8:07:00 EDT, Height, 71.1, [...] EGD due 2027 Confirmed Active Microscopic hematuria; [facility] Confirmed Active Osteoporosis Confirmed Active Colon polyp Confirmed Active Acquired hypothyroidism Confirmed Active Insomnia Confirmed Active Social History Social History Type Response Smoking Status Former smoker, quit more than 30 days ago; Other: quit smoking more than 15 years ago; entered on: 04/22/23 Sex Laboratory * Event Display: Non Lab Results Authored Date: * Event Display: Non Lab Results Authored Date: US Breast * Event Display: Ultrasound Breast Authored Date: * Event Display: Ultrasound Breast Authored Date: MG Breast Views * Event Display: MM Mammogram Authored Date: * Event Display: MM Mammogram Authored Date: * Event Display: MM Mammogram Authored Date: Patient Care team information Care Team Personnel Name: Mart Medeiros MD Position: S Physician - Primary Care Member Role: PCP Address: Address: [address] [place] [address]- Care Team Related Persons Name: KIM WILD Address: home [address] [place] [address] Name: INESSA HOLLEY Address: [place] [address]
--- OUTSIDE RECORDS SUMMARY | 2024-01-30 07:39 | XMS_ITS | Continuity of Care Document ---
Author Organization [facility] Address [address] [place] [address]- Care Team Providers Care Medical Microbiologist Name Role Phone Kleber Machado MD Primary Care Physician En[place] [facility] [place] [facility] R [id number] Date(s): 11/20/21 - 11/27/21 [facility] [address] [place], [place] [address] Encounter Diagnosis Urinary frequency(Discharge Diagnosis) - 11/20/21 Elevated blood sugar level(Discharge Diagnosis) - 11/20/21 Attending Physician: Praveena BOYD, [place] Referring Physician: Kleber Machado MD Allergies, Adverse Reactions, Alerts Substance Reaction Severity Status penicillin Vaginal discharge symptom Ac tive Immunizations Given and Recorded Vaccine Date Status Refusal Reason zoster vaccine, inactivated 07/06/21 Recorded zoster vaccine, [...] 1 01/11/17 Recorded 1Result Comment: given @ [facility] Medications levothyroxine 75 mcg (0.075 mg) oral tablet 1 tablet = 75 mcg, By Mouth, Daily, # 30 tablet, 1 Refills, Maintenance, 11/10/21 13:03:00 EDT, Tablet, [facility]/pharmacy #[id number], Partial fill upon patient request if the prescription is for a schedule II opioid drug., 159, cm, 11/08/21 8:32:00 EDT, Height Start Date: 11/10/21 Status: Ordered pantoprazole 40 mg oral delayed release tablet 1 tablet = 40 mg, By Mouth, Daily, # 30 tablet, 3 Refills, Maintenance, 11/08/21 9:03:00 EDT, [facility] Tablet, 159, cm, 11/08/21 8:32:00 EDT, Height Start Date: 11/08/21 Status: Ordered traZODone 50 mg oral tablet 25 mg, 0.5, tablet, By Mouth, Daily at bedtime, PRN, # 45 tablet, Refills 3, Tot. Refills 3, Maintenance, Sleep, 11/08/21 9:04:00 EDT, Route to Pharmacy Electronically, [facility]/pharmacy #[id number], Partial fill upon patient request if the prescription is for a... Start Date: 11/08/21 Status: Ordered Problem List Condition Effective Dates Status Health Status Inform ant Alopecia(Confirmed) Active Anemia(Confirmed) Active Hypothyroid(Confirmed) Active Ganglion of left ankle(Confirmed) Active GERD without esophagitis(Confirmed) Active Dyslipidemia(Confirmed) Active Sacroiliitis(Confirmed) Active Acquired hypothyroidism(Confirmed) Active Insomnia(Confirmed) Active Reflux(Confirmed) Active Diagnosis Diagnosis Type Effective Dates Health Status Cl inical Service Informant Urinary frequency Discharge Diagnosis 11/20/21 Elevated blood sugar level Discharge Diagnosis 11/20/21 Vital Signs Most recent to oldest [Reference Range]: 1 Height 159.00 cm (11/20/21 8:24 AM) Weight 71.1 kg (11/20/21 8:24 AM) Oxygen Saturation [94-100 %] 100 % (11/20/21 8:24 AM) Pulse Rate [55-90 bpm] 65 bpm (11/20/21 8:24 AM) Body Mass Index [18.5-24.99] 28.12 *H* (11/20/21 8:24 AM) Blood Pressure [90-138/55-84 mm Hg] 115/ 70mm Hg (11/20/21 8:24 AM) Temperature [96.8-100.4 DegF] 96.8 DegF (11/20/21 8:24 AM) Mode of Delivery (Oxygen) Room air (11/20/21 8:24 AM) Blood pressure sites Arm, right (11/20/21 8:24 AM) Temperature Route Temporal (11/20/21 8:24 AM) Dry Weight 71.1 kg (11/20/21 8:24 AM) Weight Obtained Via Standing scale (11/20/21 8:24 AM) Social History Social History Type Response Smoking Status Former smoker, quit more than 30 days ago; Other: quit smoking 15 years ago; entered on: 12/16/19 Sex
--- OUTSIDE RECORDS SUMMARY | 2024-01-30 07:39 | XMS_ITS | Continuity of Care Document ---
Author Organization [facility] Address [address] [place] [address]- Care Team Providers Care Instructional Services Librarian Name Role Phone Carter RAMOS, Kleber Primary Care Physician Encounter [facility] Date(s): 10/18/22 - 11/17/22 [facility] [address] [place] [address]- [place] Allergies, Adverse Reactions, Alerts Substance Reaction Severity Status penicillin Vaginal discharge symptom Ac tive Immunizations Given and Recorded Vaccine Date Status Refusal Reason [id number] 12y+ bivalent booster vax 05/21/22 Recorded influenza [...] vaccine, inactivated 04/14/13 Ludwig rded SARS-CoV-2 mRNA ([id number]) vax 11/23/21 Recorded pneumococcal 20-valent conjugate vaccine 11/08/21 Recorded zoster vaccine, inactivated 07/06/21 Recorded zoster vaccine, inactivated 05/06/21 Recorded SARS-CoV-2 (COVID-19) mRNA BNT-162b2 vac 05/20/21 Recorded SARS-CoV-2 (COVID-19) mRNA BNT-162b2 vac 11/20/20 Recorded SARS-CoV-2 (COVID-19) mRNA BNT-162b2 vac 10/30/20 Recorded tetanus/diphtheria/pertussis, acel(Tdap) 1 01/11/17 Recorded 1Result Comment: given @ [facility] Medications alendronate 70 mg oral tablet 1 [...] day, 159,... Start Date: 07/18/22 Status: Ordered levothyroxine 75 mcg (0.075 mg) [...] opioid drug. Start Date: 11/15/22 Status: Ordered pantoprazole 40 mg oral delayed release tablet 1 tablet, By Mouth, Daily, # 90 tablet, 1 Refills, 06/04/22 15:58:00 EDT, 159, cm, 04/10/22 9:49:00EDT, Height, 71.1, kg, 11/20/21 8:24:00 EDT, Dry Weight Start Date: 06/04/22 Status: Ordered Tylenol 8 Hour 650 mg oral tablet, extended release 2 tablet = 1,300 mg, By Mouth, 3 times a day, PRN Pain , Moderate, # 100 tablet, 0 Refills, Maintenance, 11/15/22 8:43:00 EDT, ER Tablet, [id number], Partial fill upon patient request if the prescription is for a schedule II opioid drug., 157,... Start Date: 11/15/22 Status: Ordered Voltaren Arthritis Pain 1% topical gel = 2 Gm, Topically, 4 times a day, not to exceed 16 grams/day/single joint of lower extremities, # 240 Gm, 0 Refills, Maintenance, 11/15/22 8:43:00 EDT, [id number], Partial fill upon patient request if the prescription is for a schedule II opio... Start Date: 11/15/22 Status: Ordered Problem List Condition Confirmation Course [...] Team Personnel Name: Kleber Machado MD Position: [facility] Primary Care Physician Member Role: PCP Address: Address: [address] [place] [address] Adult & [place] [address]- Care Team Related Persons Name: KIM WILD Address: home [address] [place] [address] Name: INESSA HOLLEY Address: [place] [address]
--- OUTSIDE RECORDS SUMMARY | 2024-01-30 07:39 | XMS_ITS | Continuity of Care Document ---
Author Organization [facility] Address [address] [place] [address]- Care Team Providers Care Oracle Apex Developer Name Role Phone Kleber Machado MD Primary Care Physician En[place] [facility] [place]s): 11/08/21 - 11/15/21 [facility] [address] [place] [place] [address] Encounter Diagnosis GERD without esophagitis(Discharge Diagnosis) - 11/08/21 Postprocedural hypothyroidism(Discharge Diagnosis) - 11/08/21 Dermatitis of right ear canal(Discharge Diagnosis) - 11/08/21 Other hyperlipidemia(Discharge Diagnosis) - 11/08/21 Primary insomnia(Discharge Diagnosis) - 11/08/21 Attending Physician: Kleber Machado MD Allergies, Adverse [...] 1 01/11/17 Recorded 1Result Comment: given @ [facility] Medications acetic acid-hydrocortisone otic 2%-1% solution See Instructions, 3 drops Right ear 4 times a day 5 days, # 10 mL, 0 Refills, Acute 11/22/21 9:03:00 EDT, 11/08/21 9:02:00 EDT, Solution, [id number], Partial fill upon patient request if the prescription is for a schedule II opioid drug., 3 . Start Date: 11/08/21 Stop Date: 11/22/21 Status: Ordered levothyroxine 75 mcg (0.075 mg) [...] 11/08/21 9:04:00 EDT, Route to [facility], [id number], Partial fill upon patient request [...] Service Informant GERD without esophagitis Discharge Diagnosis 11/08/21 Postprocedural hypothyroidism Discharge Diagnosis 11/08/21 Other hyperlipidemia Discharge Diagnosis 11/08/21 Dermatitis of right ear canal Discharge Diagnosis 11/08/21 Primary insomnia Discharge Diagnosis 11/08/21 Vital Signs Most recent to oldest [Reference Range]: 1 Height 159.00 cm (11/08/21 8:32 AM) Weight 72.8 kg (11/08/21 8:32 AM) Oxygen Saturation [94-100 %] 97 % (11/08/21 8:32 AM) Pulse Rate [55-90 bpm] 65 bpm (11/08/21 8:32 AM) Body Mass Index [18.5-24.99] 28.8 *H* (11/08/21 8:32 AM) Blood Pressure [90-138/55-84 mm Hg] 102/ 74mm Hg (11/08/21 8:32 AM) Blood pressure sites Arm, right (11/08/21 8:32 AM) Social History Social History Type Response Smoking Status Former smoker, quit more than 30 days ago; Other: quit smoking 15 years ago; entered on: 12/16/19 Sex
--- OUTSIDE RECORDS SUMMARY | 2024-01-30 07:40 | XMS_ITS | Continuity of Care Document ---
Author Organization [facility] Address [address] [place] [address]- Care Team Providers Care Floorleader Name Role Phone Kleber Machado MD Primary Care Physician [phone] En[place] [facility] [place] Date(s): 11/08/21 - 12/08/21 [facility] [address] [place], [place] [address] Allergies, Adverse Reactions, Alerts Substance [...] 1 01/11/17 Recorded 1Result Comment: given @ [facility] Medications levothyroxine 75 mcg (0.075 mg) oral tablet 1 tablet = 75 mcg, By Mouth, Daily, # 30 tablet, 1 Refills, Maintenance, 11/10/21 13:03:00 EDT, Tablet, [facility]/pharmacy #1026, Partial fill upon patient request if the prescription is for a schedule II opioid drug., 159, cm, 11/08/21 8:32:00 EDT, Height Start Date: 11/10/21 Status: Ordered methocarbamol 750 mg oral tablet 1 tablet = 750 mg, By Mouth, 3 times a day, PRN Pain , Moderate, for 7 days, # 21 tablet, 0 Refills, Acute 12/13/21 8:55:00 EDT, 12/06/21 8:55:00 EDT, Tablet, [facility]/pharmacy #1026, Partial fill upon patient request if the prescription is for a schedule... Start Date: 12/06/21 Stop Date: 12/13/21 Status: Ordered pantoprazole 40 mg oral delayed release tablet 1 tablet, By Mouth, Daily, # 90 tablet, 1 Refills, 159, cm, 11/20/21 8:24:00 EDT, Height, 71.1, kg,11/20/21 8:24:00 EDT, Dry Weight Start Date: 11/28/21 Status: Ordered traZODone 50 mg oral tablet 25 mg, 0.5, tablet, By Mouth, Daily at bedtime, PRN, # 45 tablet, Refills 3, Tot. Refills 3, Maintenance, Sleep, 11/08/21 9:04:00 EDT, Route to Pharmacy Electronically, [facility]/pharmacy #[id number], Partial fill upon patient request if [...]
--- OUTSIDE RECORDS SUMMARY | 2024-01-30 07:40 | XMS_ITS | Continuity of Care Document ---
Author Organization [facility] Address [address] [place] [address]- Care Team Providers Care Polisher Aluminum Name Role Phone Carter RAMOS, [facility] Primary Care Physician [phone] [place] [facility] [place]s): 12/05/21 - 01/04/22 [facility] [address] [place], [place] [address] Allergies, Adverse Reactions, Alerts Substance Reaction [...] Recorded 1Result Comment: given @ [facility] Medications levothyroxine 75 mcg (0.075 [...] 11/08/21 9:04:00 EDT, Route to Pharmacy Electronically, [facility]/pharmacy #[id number], Partial fill upon patient request if [...]
--- OUTSIDE RECORDS SUMMARY | 2024-01-30 07:40 | XMS_ITS | Continuity of Care Document ---
Author Organization [facility] Address [address] [place] [address]- Care Team Providers Care Preschool Assistant Director Name Role Phone Carter RAMOS, [facility] Primary Care Physician [phone] Encounter [facility] Date(s): 08/27/22 - 09/26/22 [facility] [address] [place], [place] [address] Allergies, Adverse Reactions, Alerts Substance [...] 1 01/11/17 Recorded 1Result Comment: given @ [facility] Medications alendronate 70 mg oral tablet [...] 11 Refills, Maintenance, 07/18/22 12:28:00 EST, Tablet, [facility]/pharmacy #[id number], Partial fill upon patient request [...] 03/27/22 8:31:00 EDT, Route to Pharmacy Electronically, [facility]/pharmacy #[id number], Partial fill upon patient request [...] 1 Refills, Maintenance, 11/10/21 13:03:00 EDT, Tablet, [facility]/pharmacy #[id number], Partial fill upon patient request [...] according to the product label. Follow the [facility] instructions stating when to drin k the prep fluid on the evening befoer the colonoscopy. 8 oz every 20 minutes., # 1 each, 0 Refi... Start Date: 03/27/22 Status: Ordered Senna-Time 8.6 mg oral tablet 1 OR 2 TABLETS, By Mouth, Daily at bedtime, PRN NEEDED FOR CONSTIPATION, # 60 tablet, 0 Refills,Maintenance, 04/25/22 20:10:00 EDT, [id number], 159, cm, 04/10/22 9:49:00 EDT, Height, 71.1, [...] Care Physician Member Role: PCP Address: Address: [address] [place] [address] Adult [facility] [place] [address]- Care Team Related Persons Name: KIM WILD Address: home [address] [place] [address] Name: INESSA HOLLEY Address: [place] [address]
--- OUTSIDE RECORDS SUMMARY | 2024-01-30 07:40 | XMS_ITS | Continuity of Care Document ---
Author Organization [facility] Address [address] [place] [address]- Care Team Providers Care Cook Fry Name Role Phone Mart Medeiros MD Primary Care Physician [place] [facility] [place] 11/28/23 - 12/28/23 [facility] [address] [place] [address]- Attending Physician: Zara Crocker Admitting Physician: AdmtrZara [...] influenza virus vaccine, inactivated 04/14/13 Ludwig rded [id number] 12y+ bivalent booster vax 05/21/22 Recorded SARS-CoV-2 mRNA ([id number]-[id number]-[id number]) vax 11/23/21 Recorded pneumococcal 20-valent conjugate vaccine 11/08/21 Recorded zoster vaccine, inactivated 07/06/21 Recorded zoster vaccine, inactivated 05/06/21 Recorded SARS-CoV-2 (COVID-19) mRNA BNT-162b2 vac 05/20/21 Recorded SARS-CoV-2 (COVID-19) mRNA BNT-162b2 vac 11/20/20 Recorded SARS-CoV-2 (COVID-19) mRNA BNT-162b2 vac 10/30/20 Recorded tetanus/diphtheria/pertussis, acel(Tdap) 1 01/11/17 Recorded 1Result Comment: given @ [facility] Medications acetaminophen 650 mg oral tablet, extended release 2 tablet, By Mouth, 3 times a day, PRN NEEDED, MODERATE PAIN., # 100 tablet, 0 Refills, Maintenance, 11/22/22 15:25:00 EDT, [facility], 157, cm, 11/15/22 8:07:00 EDT, Height, 71.1, kg, 11/20/21 8:24:00 EDT, Dry Weight Start Date: 11/22/22 Status: Ordered alendronate 70 mg oral tablet 1 tablet, By Mouth, Every week, # 12 tablet, 3 Refills, Maintenance, 09/09/23 22:32:00 EST, [facility], 157, cm, 07/01/23 8:55:00 EST, Height, 67, kg, 07/01/23 8:55:00 EST, Dry Weight Start Date: 09/09/23 Status: Ordered calcium-vitamin D 600 mg-400 intl units oral tablet 1 tablet, By Mouth, 2 times a day, # 180 tablet, 3 Refills, Maintenance, 09/09/23 22:32:00 EST, [facility], 90, TAKE 1 TABLET BY MOUTH TWICE A DAY, 157, cm, 07/01/23 8:55:00 EST, Height, 67, kg,07/01/23 8:55:00 EST, Dry Weight Start Date: 09/09/23 Status: Ordered Claritin 24 Hour Allergy 10 mg oral tablet 1 tablet = 10 mg, By Mouth, Daily, # 30 tablet, 0 Refills, Maintenance, 11/28/23 16:11:00 EDT, [facility]t, [id number], Partial fill upon patient request if the prescription is for a schedule II opioid drug., 157, cm, 11/28/23 15:26:00 EDT, Height,... Start Date: 11/28/23 Status: Ordered fluticasone 50 mcg/inh nasal spray 1 sprays = 50 mcg, Nares, Both, 2 times a day, # 16 Gm, 0 Refills, Maintenance, 11/28/23 16:12:00 EDT, [place], [facility]/pharmacy #[id number], Partial fill upon patient request if the prescription is for a schedule II opioid drug., 1 sprays Nares, Both 2 times a d... Start Date: 11/28/23 Status: Ordered Knee sleeve/support Knee sleeve/support, See [...] Refills, Maintenance, 09/06/23 20:36:00 EST, [id number], 157, cm, 07/01/23 8:55:00 EST, Height, 67, kg, 07/01/23 8:55:00 EST, Dry Weight Start Date: 09/06/23 Status: Ordered MiraLax oral powder for reconstitution See Instructions, 1 packet By Mouth Daily as needed for constipation dissolve in water or juice, # 30 each, 5 Refills, Maintenance, 04/22/23 13:24:00 EDT, REC Powder, [facility]/pharmacy #[id number], Partial fillupon patient request if the [...] EGD due 2027 Confirmed Active Microscopic hematuria; [facility] Confirmed Active Osteoporosis Confirmed Active Colon polyp Confirmed Active Acquired hypothyroidism Confirmed Active Insomnia Confirmed Active Social History Social History Type Response Smoking Status Former smoker, quit more than 30 days ago; Other: quit smoking more than 15 years ago; entered on: 04/22/23 Sex Patient Care team information Care Team Personnel Name: Mart Medeiros MD Position: [facility] Physician - Primary Care Member Role: PCP Address: Address: [address] [place] [address]- Care Team Related Persons Name: KIM WILD Address: home [address] [place] [id number] Name: INESSA HOLLEY Address: [place] [address]
--- OUTSIDE RECORDS SUMMARY | 2024-01-30 07:40 | XMS_ITS | Continuity of Care Document ---
Author Organization [facility] Address [address] [place] [address]- Care Team Providers Care Rail Engineer Name Role Phone Kleber Machado MD Primary Care Physician Encounter [facility] [place] Date(s): 07/03/21 - 08/04/21 [facility] [address] [place], [place] [address] Attending Physician: Kleber Machado MD Allergies, Adverse [...] influenza virus vaccine, inactivated 04/13/21 Ludwig rded tetanus/diphtheria/pertussis, acel(Tdap) 1 01/11/17 Recorded 1Result Comment: given @ [facility] Medications levothyroxine 0.05 mg oral tablet 1 [...]
--- OUTSIDE RECORDS SUMMARY | 2024-01-30 07:40 | XMS_ITS | Continuity of Care Document ---
Author Organization [facility] Address [address] [place] [address]- Care Team Providers Care Kitchen Operator Name Role Phone Kleber Machado MD Primary Care Physician [phone] En[place] [facility] [place](s): 12/27/21 - 01/26/22 [facility] [address] [place] [address] Attending Physician: Admtr, Zara Admitting Physician: Admtr, Ar8 Referring Physician: Admtr, Ar8 Allergies, Adverse Reactions, [...] 1 01/11/17 Recorded 1Result Comment: given @ [facility] Medications levothyroxine 75 mcg (0.075 mg) oral tablet 1 tablet, By Mouth, Daily, # 30 tablet, 5 Refills, 01/10/22 14:47:00 EDT, [facility]/pharmacy #1026, 159, cm, 12/26/21 14:40:00 EDT, Height, 71.1, kg, 11/20/21 8:24:00 EDT, Dry Weight Start Date: 01/10/22 Status: Ordered levothyroxine 75 mcg (0.075 mg) oral tablet 1 tablet = 75 mcg, By Mouth, Daily, # 30 tablet, 1 Refills, Maintenance, 11/10/21 13:03:00 EDT, Tablet, [facility]/pharmacy #[id number], Partial fill upon patient [...] 11/08/21 9:04:00 EDT, Route to Pharmacy Electronically, [facility]/pharmacy #[id number], Partial fill upon patient [...]
--- OUTSIDE RECORDS SUMMARY | 2024-01-30 07:40 | XMS_ITS | Continuity of Care Document ---
Author Organization [facility] Address [address] [place] [address]- Care Team Providers Care Cane Flume Watchman Name Role Phone Mart Medeiros MD Primary Care Physician [phone] [place] [facility] [place]s): 11/27/23 - 12/27/23 [facility] [address] [place], [place] [address] Allergies, Adverse Reactions, Alerts Substance Reaction Severity [...] influenza virus vaccine, inactivated 04/14/13 Ludwig rded [id number] 12y+ bivalent booster vax 05/21/22 Recorded SARS-CoV-2 mRNA (bdlysat-tkyy-ebzif) vax 11/23/21 Recorded pneumococcal 20-valent conjugate vaccine 11/08/21 Recorded zoster vaccine, inactivated 07/06/21 Recorded zoster vaccine, inactivated 05/06/21 Recorded SARS-CoV-2 (COVID-19) mRNA BNT-162b2 vac 05/20/21 Recorded SARS-CoV-2 (COVID-19) mRNA BNT-162b2 vac 11/20/20 Recorded SARS-CoV-2 (COVID-19) mRNA BNT-162b2 vac 10/30/20 Recorded tetanus/diphtheria/pertussis, acel(Tdap) 1 01/11/17 Recorded 1Result Comment: given @ [facility] Medications acetaminophen 650 mg oral tablet, extended release 2 tablet, By Mouth, 3 times a day, PRN NEEDED, MODERATE PAIN., # 100 tablet, 0 Refills, Maintenance, 11/22/22 15:25:00 EDT, [facility], 157, cm, 11/15/22 8:07:00 EDT, Height, 71.1, kg, 11/20/21 8:24:00 EDT, Dry Weight Start Date: 11/22/22 Status: Ordered alendronate 70 mg oral tablet 1 tablet, By Mouth, Every week, # 12 tablet, 3 Refills, Maintenance, 09/09/23 22:32:00 EST, [facility], 157, cm, 07/01/23 8:55:00 EST, Height, 67, kg, 07/01/23 8:55:00 EST, Dry Weight Start Date: 09/09/23 Status: Ordered calcium-vitamin D 600 mg-400 intl units oral tablet 1 tablet, By Mouth, 2 times a day, # 180 tablet, 3 Refills, Maintenance, 09/09/23 22:32:00 EST, [facility], 90, TAKE 1 TABLET BY MOUTH TWICE A DAY, 157, cm, 07/01/23 8:55:00 EST, Height, 67, kg,07/01/23 8:55:00 EST, Dry Weight Start Date: 09/09/23 Status: Ordered Claritin 24 Hour Allergy 10 mg oral tablet 1 tablet = 10 mg, By Mouth, Daily, # 30 tablet, 0 Refills, Maintenance, 11/28/23 16:11:00 EDT, Tablet, [facility]/pharmacy #1026, Partial fill upon patient request if the prescription is for a schedule II opioid drug., 157, cm, 11/28/23 15:26:00 EDT, Height,... Start Date: 11/28/23 Status: Ordered fluticasone 50 mcg/inh nasal spray 1 sprays = 50 mcg, Nares, Both, 2 times a day, # 16 Gm, 0 Refills, Maintenance, 11/28/23 16:12:00 EDT, [place], Partial fill upon patient request [...] Refills, Maintenance, 09/06/23 20:36:00 EST, [facility], 157, cm, 07/01/23 8:55:00 EST, Height, 67, kg, 07/01/23 8:55:00 EST, Dry Weight Start Date: 09/06/23 Status: Ordered MiraLax oral powder for reconstitution See Instructions, 1 packet By Mouth Daily as needed for constipation dissolve in water or juice, # 30 each, 5 Refills, Maintenance, 04/22/23 13:24:00 EDT, REC Powder, [facility]/pharmacy #1026, Partial fillupon patient request if the [...] EGD due 2027 Confirmed Active Microscopic hematuria; [facility] Confirmed Active Osteoporosis Confirmed Active [...] Primary Care Member Role: PCP Address: Address: [address] [place] [address]- Care Team Related Persons Name: KIM WILD Address: home [address] [place] [address] Name: INESSA HOLLEY Address: [place] [address]
--- OUTSIDE RECORDS SUMMARY | 2024-01-30 07:40 | XMS_ITS | Continuity of Care Document ---
Author Organization [facility] Address [address] [place] [address]- Care Team Providers Care Airline Pilot Name Role Phone Kleber Machado MD Primary Care Physician [phone] [place] [facility] 12/28/21 [facility] [address] [place], [place] [address] Allergies, Adverse Reactions, Alerts [...] 1 01/11/17 Recorded 1Result Comment: given @ [facility] Medications levothyroxine 75 mcg (0.075 mg) oral tablet 1 tablet = 75 mcg, By Mouth, Daily, # 30 tablet, 1 Refills, Maintenance, 11/10/21 13:03:00 EDT, Tablet, [facility]/pharmacy #[id number], Partial fill upon patient [...] 11/08/21 9:04:00 EDT, Route to Pharmacy Electronically, [facility]/pharmacy #[id number], Partial fill upon patient [...]
--- OUTSIDE RECORDS SUMMARY | 2024-01-30 07:40 | XMS_ITS | Continuity of Care Document ---
Author Organization [facility] Address [address] [place] [address]- Care Team Providers Care Vending Machine Mechanic Name Role Phone Mart Medeiros MD Primary Care Physician [place] [facility] [place]23 - 06/15/23 [facility] [address] [place], [place] [address] Allergies, Adverse Reactions, Alerts Substance [...] influenza virus vaccine, inactivated 04/14/13 Ludwig rded [id number] 12y+ bivalent booster vax 05/21/22 Recorded SARS-CoV-2 mRNA (rckuysn-khub-qogpa) vax 11/23/21 Recorded pneumococcal 20-valent conjugate vaccine 11/08/21 Recorded zoster vaccine, inactivated 07/06/21 Recorded zoster vaccine, inactivated 05/06/21 Recorded SARS-CoV-2 (COVID-19) mRNA BNT-162b2 vac 05/20/21 Recorded SARS-CoV-2 (COVID-19) mRNA BNT-162b2 vac 11/20/20 Recorded SARS-CoV-2 (COVID-19) mRNA BNT-162b2 vac 3/28/21 Recorded tetanus/diphtheria/pertussis, acel(Tdap) 1 01/11/17 Recorded 1Result Comment: given @ [facility] Medications acetaminophen 650 mg oral tablet, extended release 2 tablet, By Mouth, 3 times a day, PRN NEEDED, MODERATE PAIN., # 100 tablet, 0 Refills, Maintenance, 11/22/22 15:25:00 EDT, [id number], 157, cm, 11/15/22 8:07:00 EDT, Height, 71.1, [...] EGD due 2027 Confirmed Active Microscopic hematuria; [facility] Confirmed Active Osteoporosis Confirmed Active Colon polyp Confirmed Active Acquired hypothyroidism Confirmed Active Insomnia Confirmed Active Social History Social History Type Response Smoking Status Former smoker, quit more than 30 days ago; Other: quit smoking more than 15 years ago; entered on: 04/22/23 Sex Patient Care team information Care Team Personnel Name: Mart Medeiros MD Position: [facility] Physician - Primary Care Member Role: PCP Address: Address: [address] [place] [address]- Care Team Related Persons Name: KIM WILD Address: home [address] [place] [address] Name: INESSA HOLLEY Address: [place] [address]
--- OUTSIDE RECORDS SUMMARY | 2024-01-30 07:40 | XMS_ITS | Continuity of Care Document ---
Author Organization [facility] ter Address [address] [place] [address]- Care Team Providers Care Dispensing And Measuring Optician Name Role Phone Kleber Machado MD Primary Care Physician [place] [facility] [place]22 [facility] [address] [place] [address] Discharge Disposition: A-D/C Home Attending Physician: Jair Babin MD Admitting Physician: Jair Babin MD Referring Physician: Jair Babin MD Allergies, Adverse Reactions, Alerts Substance Reaction [...] 1 01/11/17 Recorded 1Result Comment: given @ [facility] Medications alendronate 70 mg oral tablet [...] tablet, By Mouth, Daily, # 30 tablet, 2 Refills, 10/05/22 12:41:00 EST, [id number], [facility], cm, 08/29/22 14:34:00 EST, Height, 71.1, kg, 11/20/21 8:24:00 EDT, Dry Weight Start Date: 10/05/22 Status: Ordered levothyroxine 75 mcg (0.075 mg) [...] Dry Weight Start Date: 06/04/22 Status: Ordered Problem List Condition Confirmation Course Effective Dates Status H ealth Status Informant Alopecia Confirmed Active Anemia Confirmed Active Hypothyroid Confirmed Active Ganglion of left ankle Confirmed Active GERD without esophagitis Confirmed Active Dyslipidemia Confirmed Active Sacroiliitis Confirmed Active Osteoporosis Confirmed Active Acquired hypothyroidism Confirmed Active Insomnia Confirmed Active Reflux Confirmed Active Vital Signs Most recent to oldest [Reference Range]: 1 2 3 Height 157 cm (10/31/22 9:26 AM) Weight 68.5 kg (10/31/22 9:26 AM) Oxygen Saturation [94-100 %] 100 % (10/31/22 10:56 AM) 97 % (10/31/22 10:46 AM) 96 % (10/31/22 9:26 AM) Pulse Rate [55-90 bpm] 62 bpm (10/31/22 9:26 AM) Body Mass Index [18.5-24.99 kg/m2] 27.79 kg/m2 *H* (10/31/22 9:26 AM) Blood Pressure [90-138/55-84 mm Hg] 100/55mm Hg (10/31/22 10:56 AM) 99/57mm Hg (10/31/22 10:46 AM) 122/72mm Hg (10/31/22 9:26 AM) Respiratory Rate [16-30 br/min] 20 br/min (10/31/22 10:56 AM) 22 br/min (10/31/22 10:46 AM) 22 br/min (10/31/22 9:26 AM) Temperature [96.8-100.4 DegF] 97.0 DegF (10/31/22 9:26 AM) Mode of Delivery (Oxygen) Room air (10/31/22 10:56 AM) Room air (10/31/22 10:46 AM) Room air (10/31/22 9:26 AM) Temperature Route Temporal (10/31/22 9:26 AM) Social History Social History Type Response Smoking Status Former smoker, quit more than 30 days ago; Other: quit smoking 15 years ago; entered on: 12/16/19 Sex Note * Randa Velazquez RN: PERFORM Event Display: Discharge/Transfer Note Hospital Authored Date: [id number] Nursing Discharge Note Entered On: 10/31/2022 10:50 EDT Performed On: 10/31/2022 10:50 EDT by Randa Velazquez RN Nursing Discharge Note 2 Discharge Time : 10/31/2022 11:22 EDT Randa Velazquez RN - 10/31/2022 11:23 EDT Discharge Level of Care at Discharge : Home/[facility] Patient Left Unit Via : Wheelchair Patient Accompanied Off Unit with : Responsible adult DC Instructions Provided & Signed by Pt : Yes Patient Understands D/C Instructions : Yes Patient Instructions Discharge Signed : Yes Did Pt have Specialty Bed or Wound Vac : No Randa Velazquez RN - 10/31/2022 10:50 EDT * Randa Velazquez RN: PERFORM Event Display: Patient Education/Instruction Authored Date: [id number] Inpatient Adult Discharge Instructions [address] [address] Name: KWASI WILD : 1955 Visit: 10/31/2022 07:42:00 Current Date: 10/31/2022 10:51 Account: [id number] Inpatient Adult Discharge Instructions We would like to thank you for allowing us to assist you with your healthcare needs. The following includes patient education materials and information regarding your injury/illness. Our entire staffstrives to provide an excellent experience for our patients and their families. PLEASE ENSURE YOU FOLLOW-UP PER THE INSTRUCTIONS BELOW! ?? YOUR OPINION IS IMPORTANT TO US! Please complete the survey you may receive by mail or email. Your feedback will be used to make improvements to the healthcare experiences of our patients and their families. Surveys are administered by [employer] ?? If further treatment with your primary care physician or another doctor is recommended, it is important for you to keep the appointment. Call your primary care physician or return to the Emergency Department immediately if your condition worsens, fails to improve, or new symptoms develop. If you need to find a doctor, you can call [facility] for a referral at [phone] or toll free at [phone] or log in to [email or web address].. ?? You can view and manage your care through the patient portal or by using a health care aniceto of your choosing. [employer] is a website that allows you to securely view your medical information including your hospital discharge summary, office visit summaries, medications and follow-up visits. You can also request appointments, renew medications, and request access to your medical information using a health care aniceto of your choosing, or just ask a question. You can enroll at [email or web address] or register during your next office visit. You have been discharged from [facility], Patient Care Unit: ENDO. If you have any questions regarding these instructions after you leave, please call us and we will be happy to assist you. [facility] Your Care Team Attending Physician Jair Babin MD Discharging Providers Jair Babin MD Reason for Admission CHRONIC GERD CRC SC Tests Performed Below is a partial list of the tests performed during your hospitalization. You may have had other tests and procedures not included in this list. Please discuss all test results with your provider. Primary Care Provider Carter RAMOS, Kleber Advance Directive Health Care Proxy on File Yes - Health Care Proxy Discharge Vitals Temperature: 97 DegF Height: 157 cm Pulse Rate: 62 bpm Weight: 68.5 kg Respiratory Rate: 22 br/min Body Mass Index:??27.79 kg/m2??High Systolic Blood Pressure: 99 mm Hg Body surface area: 1.73 Diastolic Blood Pressure: 57 mm Hg ?? Oxygen Saturation: 97 % ?? Studies Pending All tests and labs ordered during this hospital stay have been completed unless listed below. Please discuss all pending results with your provider listed above in these instructions. ?? No incomplete studies found What to do next Instructions From Your Doctor Discharge Orders You Need to Schedule the Following Appointments Follow Up with??follow up with your PCP When?? Follow Up with?Román Machado When??In 0 days Discharge Medications KWASI WILD :1955 Visit Date:10/31/2022 Medications: Please continue your medications until treatment is completed or stopped by your provider. Medications not listed below should be discontinued. Discuss any questions related to medications with your provider. What How Much When Instructions Next Dose Unchanged Alendronate (alendronate 70 mg oral tablet) 1 tab(s) Oral Every week Unchanged Calcium And Vitamin D Combination (calcium-vitamin D 600 mg-400 intl units oral tablet) 1 tab(s) Oral Twice a day Unchanged Levothyroxine (levothyroxine 75 mcg (0.075 mg) oral tablet) 1 tab(s) Oral Daily Unchanged Levothyroxine (levothyroxine 75 mcg (0.075 mg) oral tablet) 1 tab(s) Oral Daily Unchanged Pantoprazole (pantoprazole 40 mg oral delayed release tablet) 1 tab(s) Oral Daily Test Results Below is a partial list of the most recent Laboratory test results done prior to this discharge. You may have had other tests and procedures not included in this list. Please discuss all test resultswith your provider. Allergies (NKA means No Known Allergies) penicillin??(Vaginal discharge symptom) Problems Active Problems??(12) Acquired hypothyroidism?? Alopecia?? Anemia?? Cocaine use?? Dyslipidemia?? Ganglion of left ankle?? GERD without esophagitis?? Hypothyroid?? Insomnia?? Osteoporosis?? Reflux?? Sacroiliitis?? Education Materials Below is the list of Educational Leaflet Providered with your Discharge Instructions. Surgery Medical Daystay Surgical Overnight Discharge Instructions?? Valuables and Belongings I fully understand and agree that [facility] accepts no responsibility for all my personal property including clothing, toilet articles, radios, jewelry, dentures, hearing aids, rings, money, or any other property that is in my possession or is brought to me after admission. I understand certain valuables may be placed in a hospital safe for a short period of time. I understand that the hospital is not liable for loss or damage due to accident, fire, or other natural occurrence while said property is in the safe. I accept full responsibility for any personal property that I keep with me, and will not hold the hospital responsible in case of loss or disappearance. I acknowledge that i have been encouraged to send valuables and belongings home. ? Other Discharge Information ? Case Management Discharge Plan?? Discharge Plan?? Discharge Level of Care at Discharge: Home/[facility] ?? Pulmonary Rehab Status?? Pulmonary Rehab Discharge Status?? Respiratory Rate: 22 br/min ? Common Emergency Awareness Tips IS IT A STROKE? Act FAST and Check for these signs: FACE Does the face look uneven? ARM Does one arm drift down? SPEECH Does their speech sound strange? TIME Call 9-1-1 at any sign of stroke ?? Heart [...] are strongly encouraged to quit. Please call [facility] [employer] Link at [phone] or [phone] ([phone]) or log in to [email or web address] for referrals to smoking cessation programs. ?? The National Suicide Prevention Hotline is available 25/02 if you or someone you know needs to find a reason to keep living. By calling 6-167-950-Brightblue (1260) you'll be connected to a skilled, trained counselor at a crisis center in your area. INPATIENT DISCHARGE INSTRUCTIONS SIGNATURE KWASI ROBLEDO Location:[facility] Registration Date and Time:10/31/2022 07:42 EDT Primary Care Physician: [facility], I KWASI WILD, have received the above patient education materials/instructions and have verbalized understanding. If ambulance or transport services are being used I further acknowledge beinggiven a choice of service. ?? If you need to contact me, please call me at this number: . Patient/Pedal Assembler Name: Patient/Pedal Assembler Signature: Relationship to Patient: Witness Name/Signature: Date: * Randa Velazquez RN: PERFORM, SIGN, VERIFY Event Display: Patient Education Handout Authored Date: [id number] * Randa Velazquez RN: PERFORM Event Display: Patient Education Leaflets Authored Date: [id number] Surgery Medical Daystay Surgical Overnight Discharge Instructions ?? 295 Medical Daystay/Surgical Overnight Discharge Instructions ? Since your coordination and judgment may be altered by medication and/or anesthesia, a responsible adult must drive you home from the hospital. ? If you have received medication for pain or sedation while under our care, you should not drive, operate machinery, drink alcohol, or sign any legal documents for 24 hours.?? You should have someone with you at home tonight. ? Remain at home the day of discharge.?? You may be up and about unless otherwise instructed by your physician. ? You may resume your daily prescription medication schedule.?? Any depressant medication should be avoided for 24 hours unless otherwise instructed by your surgeon or anesthesiologist. ? Call your physician for a follow-up appointment.? If you experience unusual or severe pain not relied by your pain medication, excessive bleedingor drainage, persistent nausea and vomiting, excessive swelling or redness, foul odor from incisionsite or fever over 100.6F, you need to call your physician. ? A follow-up phone call by a nurse will be made the day after your procedure.?? If you have stayed with us over night, you will not be receiving a follow-up phone call. ? Nausea and vomiting are a common side effect of prescription pain medication.?? We recommend that pills are not taken on an empty stomach.?? While taking any prescription pain medication you should not drive or drink alcohol. ? Patient Care team information Care Team Personnel Name: Kleber Machado MD Position: [facility] Primary Care Physician Member Role: PCP Address: Address: [address] [place] [address] Adult & [place] [address]- Care Team Related Persons Name: KIM WILD Address: home [address] [place] [address] Name: INESSA HOLLEY Address: [place] [address]
--- OUTSIDE RECORDS SUMMARY | 2024-01-30 07:40 | XMS_ITS | Continuity of Care Document ---
Author Organization [facility] Address [address] [place] [address]- Care Team Providers Care Side Trimmer Name Role Phone Carter RAMOS, [facility] Physician [phone] [place] [facility] [place]21 [facility] [address] [place], [place] [address] Attending Physician: Zara Crocker Admitting Physician: Zara [...] 1 01/11/17 Recorded 1Result Comment: given @ [facility] Medications levothyroxine 0.05 mg oral tablet 1 [...]
--- OUTSIDE RECORDS SUMMARY | 2024-01-30 07:40 | XMS_ITS | Continuity of Care Document ---
Author Organization [facility] Address [address] [place] [address]- Care Team Providers Care Thread Milling Machine Set Up Operator Name Role Phone Mart Medeiros MD Primary Care Physician [place] [facility] [place]23 [place] 05/[place]/23 [facility] [address] [place], [place] [address] Allergies, Adverse Reactions, Alerts Substance Reaction [...] influenza virus vaccine, inactivated 04/14/13 Ludwig rded [id number] 12y+ bivalent booster vax 05/21/22 Recorded SARS-CoV-2 mRNA ([id number]) vax 11/23/21 Recorded pneumococcal 20-valent conjugate vaccine 11/08/21 Recorded zoster vaccine, inactivated 07/06/21 Recorded zoster vaccine, inactivated 05/06/21 Recorded SARS-CoV-2 (COVID-19) mRNA BNT-162b2 vac 05/20/21 Recorded SARS-CoV-2 (COVID-19) mRNA BNT-162b2 vac 11/20/20 Recorded SARS-CoV-2 (COVID-19) mRNA BNT-162b2 vac 3/28/21 Recorded tetanus/diphtheria/pertussis, acel(Tdap) 1 01/11/17 Recorded 1Result Comment: given @ [facility] Medications acetaminophen 650 mg oral tablet, extended release 2 tablet, By Mouth, 3 times a day, PRN NEEDED, MODERATE PAIN., # 100 tablet, 0 Refills, Maintenance, 11/22/22 15:25:00 EDT, [facility], 157, cm, 11/15/22 8:07:00 EDT, Height, 71.1, [...] EGD due 2027 Confirmed Active Microscopic hematuria; [facility] Confirmed Active Osteoporosis Confirmed Active Colon polyp Confirmed Active Acquired hypothyroidism Confirmed Active Insomnia Confirmed Active Social History Social History Type Response Smoking Status Former smoker, quit more than 30 days ago; Other: quit smoking more than 15 years ago; entered on: 04/22/23 Sex Patient Care team information Care Team Personnel Name: Mart Medeiros MD Position: [facility] Physician - Primary Care Member Role: PCP Address: Address: [address] [place] [address]- Care Team Related Persons Name: KIM WILD Address: home [address] [place] [address] Name: INESSA HOLLEY Address: [place] [address]
--- OUTSIDE RECORDS SUMMARY | 2024-01-30 07:40 | XMS_ITS | Continuity of Care Document ---
Author Organization [facility] Address [address] [place] [address]- Care Team Providers Care Senior Engineering Technician Name Role Phone Mart Medeiros MD Primary Care Physician [phone] Encounter [facility] [place] Date(s): 06/21/23 - 07/21/23 [facility] [address] [place], [place] [address] Allergies, Adverse Reactions, Alerts Substance [...] influenza virus vaccine, inactivated 04/14/13 Ludwig rded [id number] 12y+ bivalent booster vax 05/21/22 Recorded SARS-CoV-2 mRNA (vqufoaz-sqcn-[id number]) vax 11/23/21 Recorded pneumococcal 20-valent conjugate vaccine 11/08/21 Recorded zoster vaccine, inactivated 07/06/21 Recorded zoster vaccine, inactivated 05/06/21 Recorded SARS-CoV-2 (COVID-19) mRNA BNT-162b2 vac 05/20/21 Recorded SARS-CoV-2 (COVID-19) mRNA BNT-162b2 vac 11/20/20 Recorded SARS-CoV-2 (COVID-19) mRNA BNT-162b2 vac 10/30/20 Recorded tetanus/diphtheria/pertussis, acel(Tdap) 1 01/11/17 Recorded 1Result Comment: given @ [facility] Medications acetaminophen 650 mg oral tablet, extended release 2 tablet, By Mouth, 3 times a day, PRN NEEDED, MODERATE PAIN., # 100 tablet, 0 Refills, Maintenance, 11/22/22 15:25:00 EDT, [facility], 157, cm, 11/15/22 8:07:00 EDT, Height, 71.1, [...] EGD due 2027 Confirmed Active Microscopic hematuria; [facility] Confirmed Active Osteoporosis Confirmed Active Colon polyp Confirmed Active Acquired hypothyroidism Confirmed Active Insomnia Confirmed Active Social History Social History Type Response Smoking Status Former smoker, quit more than 30 days ago; Other: quit smoking more than 15 years ago; entered on: 04/22/23 Sex Patient Care team information Care Team Personnel Name: Mart Medeiros MD Position: [facility] Physician - Primary Care Member Role: PCP Address: Address: [address] [place] [address]- Care Team Related Persons Name: KIM WILD Address: home [address] [place] [address] Name: INESSA HOLLEY Address: [place] [address]
--- OUTSIDE RECORDS SUMMARY | 2024-01-30 07:40 | XMS_ITS | Continuity of Care Document ---
Author Organization [facility] Address [address] [place] [address]- Care Team Providers Care Supply Tech Name Role Phone Crater RAMOS, Kleber Primary Care Physician [phone] Encounter [facility] Date(s): 08/27/22 - 09/28/22 [facility] [address] [place], [place] [address] Attending Physician: Kera Mak DO Allergies, Adverse Reactions, Alerts Substance Reaction Severity [...] 1 01/11/17 Recorded 1Result Comment: given @ [facility] Medications alendronate 70 mg oral tablet 1 tablet = 70 mg, By Mouth, Every week, # 13 tablet, 6 Refills, Maintenance, 07/18/22 12:28:00 EST,Tablet, [id number], Partial fill upon patient request if the prescription is for a scheduleII opioid drug., 159, cm, 04/10/22 9:49:00 EDT, Hei... Start Date: 07/18/22 Status: Ordered calcium-vitamin D 600 mg-400 intl units oral tablet 1 tablet, By Mouth, 2 times a day, # 60 tablet, 11 Refills, Maintenance, 07/18/22 12:28:00 EST, Tablet, [facility]/pharm[facility] #1026, Partial fill upon [...] 03/27/22 8:31:00 EDT, Route to Pharmacy Electronically, [facility]/pharmacy #[id number], Partial fill upon patient request if the prescriptio... Start Date: 03/27/22 Status: Ordered levothyroxine 75 mcg (0.075 mg) oral tablet 1 tablet, By Mouth, Daily, # 30 tablet, 5 Refills, 01/10/22 14:47:00 EDT, [facility] #1026, 159, cm, 12/26/21 14:40:00 EDT, Height, 71.1, kg, 11/20/21 8:24:00 EDT, Dry Weight Start Date: 01/10/22 Status: Ordered levothyroxine 75 mcg (0.075 mg) oral tablet 1 tablet = 75 mcg, By Mouth, Daily, # 30 tablet, 1 Refills, Maintenance, 11/10/21 13:03:00 EDT, Tablet, [facility]/pharmacy #1026, Partial fill upon [...] according to the product label. Follow the [facility] instructions stating when to drin k the prep fluid on the evening befoer the colonoscopy. 8 oz every 20 minutes., # 1 each, 0 Refi... Start Date: 03/27/22 Status: Ordered Senna-Time 8.6 mg oral tablet 1 OR 2 TABLETS, By Mouth, Daily at bedtime, PRN NEEDED FOR CONSTIPATION, # 60 tablet, 0 Refills,Maintenance, 04/25/22 20:10:00 EDT, [facility], 159, cm, 04/10/22 9:49:00 EDT, Height, 71.1, [...] Care Physician Member Role: PCP Address: Address: [address] [place] [address] Adult & [place] [address]- Care Team Related Persons Name: KIM WILD Address: home [address] [place] [id number] Name: INESSA HOLLEY Address: [place] [address]
--- OUTSIDE RECORDS SUMMARY | 2024-01-30 07:40 | XMS_ITS | Continuity of Care Document ---
Author Organization [facility] Address [address] [place] [address]- Care Team Providers Care Dentist Private Practice Name Role Phone Mart Medeiros MD Primary Care Physician [phone] [id number]28[facility] - 12/05/23 [facility] [address] [place] [address]- Encounter Diagnosis Head pain(Discharge Diagnosis) - 11/28/23 Dysfunction of left eustachian tube(Discharge Diagnosis) - 11/28/23 Attending Physician: Coty Her MD Referring Physician: Mart Medeiros MD Allergies, [...] influenza virus vaccine, inactivated 04/14/13 Ludwig rded [id number] 12y+ bivalent booster vax 05/21/22 Recorded SARS-CoV-2 mRNA (dgoxipd-wfde-xfyjx) vax 11/23/21 Recorded pneumococcal 20-valent conjugate vaccine 11/08/21 Recorded zoster vaccine, inactivated 07/06/21 Recorded zoster vaccine, inactivated 05/06/21 Recorded SARS-CoV-2 (COVID-19) mRNA BNT-162b2 vac 05/20/21 Recorded SARS-CoV-2 (COVID-19) mRNA BNT-162b2 vac 11/20/20 Recorded SARS-CoV-2 (COVID-19) mRNA BNT-162b2 vac 10/30/20 Recorded tetanus/diphtheria/pertussis, acel(Tdap) 1 01/11/17 Recorded 1Result Comment: given @ [facility] Medications acetaminophen 650 mg oral tablet, extended release 2 tablet, By Mouth, 3 times a day, PRN NEEDED, MODERATE PAIN., # 100 tablet, 0 Refills, Maintenance, 11/22/22 15:25:00 EDT, [facility], 157, cm, 11/15/22 8:07:00 EDT, Height, 71.1, kg, 11/20/21 8:24:00 EDT, Dry Weight Start Date: 11/22/22 Status: Ordered alendronate 70 mg oral tablet 1 tablet, By Mouth, Every week, # 12 tablet, 3 Refills, Maintenance, 09/09/23 22:32:00 EST, [facility], 157, cm, 07/01/23 8:55:00 EST, Height, 67, kg, 07/01/23 8:55:00 EST, Dry Weight Start Date: 09/09/23 Status: Ordered calcium-vitamin D 600 mg-400 intl units oral tablet 1 tablet, By Mouth, 2 times a day, # 180 tablet, 3 Refills, Maintenance, 09/09/23 22:32:00 EST, [facility], 90, TAKE 1 TABLET BY MOUTH TWICE [...] Gm, 0 Refills, Maintenance, 11/28/23 16:12:00 EDT, [place], [facility]/pharmacy #[id number], Partial fill upon patient request [...] Refills, Maintenance, 09/06/23 20:36:00 EST, [facility], 157, cm, 07/01/23 8:55:00 EST, Height, 67, [...] EGD due 2027 Confirmed Active Microscopic hematuria; [facility] Confirmed Active Osteoporosis Confirmed Active Colon polyp Confirmed Active Acquired hypothyroidism Confirmed Active Insomnia Confirmed Active Diagnosis Diagnosis Type Effective Dates Health Status Clinical Service Informant Head pain Discharge Diagnosis 11/28/23 Dysfunction of left eustachian tube Discharge Diagnosis 11/28/23 Vital Signs Most recent to oldest [Reference Range]: 1 Height 157 cm (11/28/23 3:26 PM) Weight 67 kg (11/28/23 3:26 PM) Oxygen Saturation [94-100 %] 100 % (11/28/23 3:26 PM) Pulse Rate [55-90 bpm] 69 bpm (11/28/23 3:26 PM) Body Mass Index [18.5-24.99 kg/m2] 27.18 kg/m2 *H* (11/28/23 3:26 PM) Blood Pressure [90-138/55-84 mm Hg] 130/ 75mm Hg (11/28/23 3:26 PM) Respiratory Rate [16-30 br/min] 14 br/mi n *L* (11/28/23 3:26 PM) Temperature [96.8-100.4 DegF] 98 DegF (11/28/23 3:26 PM) Blood pressure sites Arm, right (11/28/23 3:26 PM) Social History Social History Type Response Smoking Status Former smoker, quit more than 30 days ago; Other: quit smoking more than 15 years ago; entered on: 04/22/23 Sex Note * Michelle Lawson: PERFORM, SIGN, VERIFY Event Display: Patient Education/Instruction Authored Date: [id number] [facility] *[facility] Clinical Summary Name KWASI WILD Age 68 Years 1955 PCP Mart Medeiros MD PCP Visit Date 11/28/2023 14:24:00 Additional Instructions: Scheduled Appointments?? Future Appointments ?No Future Appointments Scheduled Follow-Up Instructions ?? Diagnosis Headache, unspecified; Unspecified Eustachian tube disorder, left ear Medications: Please continue your medications until treatment is completed or stopped by your provider. Discuss any questions related to medications with your provider. New Medications [id number] [address], [place] [id number], [phone] Fluticasone Nasal (fluticasone 50 mcg/inh nasal spray) 1 spray(s) Nares, Both twice a day. Refills:0. Next Dose: Loratadine (Claritin 24 Hour Allergy 10 mg oral tablet) 1 tab(s) Oral Daily. Refills: 0. Next Dose: Medications to Continue with No Changes These medications were not printed or sent to your pharmacy Acetaminophen (acetaminophen 650 mg oral tablet, extended release) 2 tab(s) Oral 3 times a day as needed. MODERATE PAIN.. Refills: 0. Next Dose: Alendronate (alendronate 70 mg oral tablet) 1 tab(s) Oral every week. Refills: 3. Next Dose: Calcium And Vitamin D Combination (calcium-vitamin D 600 mg-400 intl units oral tablet) 1 tab(s) Oral twice a day. Refills: 3. Next Dose: Durable Medical Equipment (Knee sleeve/support) diagnosis: Left knee Osteoarthritis. Refills: 0. Next Dose: Levothyroxine (levothyroxine 75 mcg (0.075 mg) oral tablet) 1 tab(s) Oral Daily. Refills: 0. Next Dose: Pantoprazole (pantoprazole 40 mg oral delayed release tablet) 1 tab(s) Oral Daily. Refills: 2. Next Dose: Polyethylene Glycol 3350 (MiraLax oral powder for reconstitution) 1 packet By Mouth Daily as neededfor constipation dissolve in water or juice. Refills: 5. Next Dose: Allergy Info:?? penicillin Medications Given This Visit Future Orders ?No future orders Future Orders ?No future orders Vital Signs Height 157 cm Weight 67 kg BMI 27.18 kg/m2 Blood Pressure 130 mm Hg/75 mm Hg Temperature 98 DegF Pulse Rate 69 bpm Respiratory Rate 14 br/min 02 Sat Mode of Delivery 100 %/ You can now view a summary of your hospital visit from the comfort of your home through a free online portal called [employer]. [employer] is a website that allows you to securely view your medical information including discharge summary, medications and follow-up visits. ??You can alsosend a secure electronic message to your doctor???s office to request appointments, renew medications or just ask a question. You can enroll at [email or web address] or register during your next office visit. [...] primary care provider, you may find a [facility] provider by calling [facility] [employer] Link at [phone]. [facility], in keeping with [facility] guidance, no longer requires face masks [...] Primary Care Member Role: PCP Address: Address: [address] [place] [address]- Care Team Related Persons Name: KIM WILD Address: home [address] [place] [address] Name: INESSA HOLLEY Address: [place] [address]
--- OUTSIDE RECORDS SUMMARY | 2024-01-30 07:40 | XMS_ITS | Continuity of Care Document ---
Author Organization [facility] Address [address] [place] [address]- Care Team Providers Care Electrical Plumbing Supervisor Name Role Phone Carter RAMOS, Kleber Primary Care Physician [phone] Encounter [facility] Date(s): 03/01/22 - 03/08/22 [facility] [address] [place] [address]- Encounter Diagnosis COVID-19(Discharge Diagnosis) - 03/01/22 Attending Physician: Ana Romero MD Allergies, Adverse Reactions, Alerts Substance Reaction [...] 1 01/11/17 Recorded 1Result Comment: given @ [facility] Medications levothyroxine 75 mcg (0.075 mg) [...] [facility] Start Date: 03/01/22 Status: Ordered Problem List Condition Effective Dates Status Health Status Inform ant Alopecia(Confirmed) Active Anemia(Confirmed) Active Hypothyroid(Confirmed) Active Ganglion of left ankle(Confirmed) Active GERD without esophagitis(Confirmed) Active Dyslipidemia(Confirmed) Active Sacroiliitis(Confirmed) Active Acquired hypothyroidism(Confirmed) Active Insomnia(Confirmed) Active Reflux(Confirmed) Active Diagnosis Diagnosis Type Effective Dates Health Status Clini kenna Service Informant COVID-19 Discharge Diagnosis 03/01/22 Social History Social History Type Response Smoking Status Former smoker, quit more than 30 days ago; Other: quit smoking 15 years ago; entered on: 12/16/19 Sex
--- OUTSIDE RECORDS SUMMARY | 2024-01-30 07:40 | XMS_ITS | Continuity of Care Document ---
Author Organization [facility] Address [address] [place] [address]- Care Team Providers Care Outside B2B Sales Name Role Phone Kleber Machado MD Primary Care Physician Encounter [facility] Date(s): 01/08/22 - 02/07/[address] [address] Attending Physician: Zara Crocker Admitting Physician: Admtr, Zara Referring Physician: Admtr, Ar8 Allergies, Adverse Reactions, [...] @ [facility] Medications levothyroxine 75 mcg (0.075 mg) oral [...] Refills, Maintenance, 11/10/21 13:03:00 EDT, Tablet, [facility]/pharmacy #[id number], Partial fill upon patient request if [...] 9:04:00 EDT, Route to Pharmacy Electronically, [facility]/pharmacy #[id number], Partial fill upon patient request if [...]
--- OUTSIDE RECORDS SUMMARY | 2024-01-30 07:40 | XMS_ITS | Continuity of Care Document ---
Author Organization [facility] Address [address] [place] [address]- Care Team Providers Care Picking Tech Name Role Phone Mart Medeiros MD Primary Care Physician En[place] [facility] Date(s): 07/16/23 - 08/15/23 [facility] [address] [place], [place] [address] Allergies, Adverse Reactions, Alerts [...] influenza virus vaccine, inactivated 04/14/13 Ludwig rded [id number] 12y+ bivalent booster vax 05/21/22 Recorded SARS-CoV-2 mRNA (karymun-dcby-kloin) vax 11/23/21 Recorded pneumococcal 20-valent conjugate vaccine 11/08/21 Recorded zoster vaccine, inactivated 07/06/21 Recorded zoster vaccine, inactivated 05/06/21 Recorded SARS-CoV-2 (COVID-19) mRNA BNT-162b2 vac 05/20/21 Recorded SARS-CoV-2 (COVID-19) mRNA BNT-162b2 vac 11/20/20 Recorded SARS-CoV-2 (COVID-19) mRNA BNT-162b2 vac 10/30/20 Recorded tetanus/diphtheria/pertussis, acel(Tdap) 1 01/11/17 Recorded 1Result Comment: given @ [facility] Medications acetaminophen 650 mg oral tablet, extended release 2 tablet, By Mouth, 3 times a day, PRN NEEDED, MODERATE PAIN., # 100 tablet, 0 Refills, Maintenance, 11/22/22 15:25:00 EDT, [facility], 157, cm, 11/15/22 8:07:00 EDT, Height, 71.1, [...] Team Personnel Name: Mart Medeiros MD Position: [facility] Physician - Primary Care Member Role: PCP Address: Address: [address] [place] [address]- Care Team Related Persons Name: KIM WILD Address: home [address] [place] [address] Name: INESSA HOLLEY Address: [place] [address]
--- OUTSIDE RECORDS SUMMARY | 2024-01-30 07:40 | XMS_ITS | Continuity of Care Document ---
Author Organization [facility] Address [address] [place] [address]- Care Team Providers Care Educational Technology Coordinator Name Role Phone Carter RAMOS, Kleber Primary Care Physician [facility] [facility] Date(s): 10/10/20 - 10/17/20 [facility] [address] [place], [place] [address] Attending Physician: Kiran Leal MD Allergies, Adverse Reactions, Alerts Substance Reaction Severity Status penicillin Vaginal discharge symptom Ac tive Immunizations Given and Recorded Vaccine Date Status Refusal Reason tetanus/diphtheria/pertussis, acel(Tdap) 1 01/11/17 Recorded 1Result Comment: given @ [facility] Medications levothyroxine 75 mcg (0.075 mg) oral [...]
--- OUTSIDE RECORDS SUMMARY | 2024-01-30 07:40 | XMS_ITS | Continuity of Care Document ---
Author Organization [facility] Address [address] [place] [address]- Care Team Providers Care Product Grader Name Role Phone Mala RAMOS, Mart Primary Care Physician [facility] [id number] Date(s): 04/22/23 - 04/29/23 [facility] [address] [place], [place] [address] Encounter Diagnosis Osteoporosis(Discharge Diagnosis) - 04/22/23 Colon polyp(Discharge Diagnosis) - 04/22/23 Physical exam(Discharge Diagnosis) - 04/22/23 Acquired hypothyroidism(Discharge Diagnosis) - 04/22/23 Attending Physician: Mart Medeiros MD Referring Physician: Carter RAMOS, Alex Allergies, Adverse Reactions, Alerts Substance Reaction Severity [...] influenza virus vaccine, inactivated 04/14/13 Ludwig rded [id number] 12y+ bivalent booster vax 05/21/22 Recorded SARS-CoV-2 mRNA (erqbspo-qgfq-aixcx) vax 11/23/21 Recorded pneumococcal 20-valent conjugate vaccine [...] Refills, Maintenance, 11/22/22 15:25:00 EDT, [facility], 157, cm, 11/15/22 8:07:00 EDT, Height, 71.1, [...] EDT, Hei... Start Date: 07/18/22 Status: Ordered levothyroxine 75 mcg (0.075 mg) oral tablet 1 tablet, By Mouth, Daily, # 90 tablet, 1 Refills, Maintenance, 11/15/22 20:06:00 EDT, [id number], 157, cm, 11/15/22 8:07:00 EDT, Height, 71.1, kg, 11/20/21 8:24:00 EDT, Dry Weight Start Date: 11/15/22 Status: Ordered MiraLax oral [...] EGD due 2027 Confirmed Active Microscopic hematuria; [facility] Confirmed Active Osteoporosis Confirmed Active Colon polyp Confirmed Active Acquired hypothyroidism Confirmed Active Insomnia Confirmed Active Diagnosis Diagnosis Type Effective Dates Health Status Clinical Service Informant Osteoporosis Discharge Diagnosis 04/22/23 Colon polyp Discharge Diagnosis 04/22/23 Physical exam Discharge Diagnosis 04/22/23 Acquired hypothyroidism Discharge Diagnosis 04/22/23 Procedures Procedure Date Related Diagnosis Body Site Status Excision of ganglion cyst, twice, L wrist Completed Vital Signs Most recent to oldest [Reference Range]: 1 Height 157 cm (04/22/23 12:52 PM) Weight 67.1 kg (04/22/23 12:52 PM) Oxygen Saturation [94-100 %] 97 % (04/22/23 12:52 PM) Pulse Rate [55-90 bpm] 65 bpm (04/22/23 12:52 PM) Body Mass Index [18.5-24.99 kg/m2] 27.22 kg/m2 *H* (04/22/23 12:52 PM) Blood Pressure [90-138/55-84 mm Hg] 105/ 71mm Hg (04/22/23 12:52 PM) Blood pressure sites Arm, left (04/22/23 12:52 PM) Social History Social History Type Response Smoking Status Former smoker, quit more than 30 days ago; Other: quit smoking more than 15 years ago; entered on: 04/22/23 Sex Note * Shilpi Mckeon: PERFORM, SIGN, VERIFY Event Display: Patient Education/Instruction Authored Date: [id number] [facility] Clinical Summary Name KWASI WILD Age 67 Years 1955 PCP Mart Medeiros MD PCP Visit Date 04/22/2023 12:04:00 Additional Instructions: Scheduled Appointments?? Future Appointments ?No Future Appointments Scheduled Follow-Up Instructions ?? Diagnosis Age-related osteoporosis without current pathological fracture; Polyp of colon; Encounter for general adult medical examination without abnormal findings; Postprocedural hypothyroidism; Impaired fasting glucose Medications: Please continue your medications until treatment is completed or stopped by your provider. Discuss any questions related to medications with your provider. Medications to Continue Taking That Have Changed [id number] [address], [place] [id number], [phone] - Polyethylene Glycol 3350 (MiraLax oral powder for reconstitution) 1 packet By Mouth Daily as needed for constipation dissolve in water or juice. Refills: 5. Next Dose: Medications to Continue with No Changes [id number] [address], [place] [id number], [phone] Pantoprazole (pantoprazole 40 mg oral delayed release tablet) 1 tab(s) Oral Daily. Refills: 0. Next Dose: These medications were not printed or sent to your pharmacy Acetaminophen (acetaminophen 650 mg oral tablet, extended release) 2 tab(s) Oral 3 times a day as needed. MODERATE PAIN.. Refills: 0. Next Dose: Alendronate (alendronate 70 mg oral tablet) 1 tab(s) Oral every week. Refills: 6. Next Dose: Levothyroxine (levothyroxine 75 mcg (0.075 mg) oral tablet) 1 tab(s) Oral Daily. Refills: 1. Next Dose: No Longer Take the Following Medications Calcium And Vitamin D Combination (calcium-vitamin D 600 mg-400 intl units oral tablet) 1 tab(s) Oral twice a day. Refills: 11. Diclofenac Topical (diclofenac 1% topical gel) PLEASE SEE ATTACHED FOR DETAILED DIRECTIONS. Refills: 0. Melatonin Daily at Bedtime. Allergy Info:?? penicillin Medications Given This Visit Future Orders ?No future orders Vital Signs Height 157 cm Weight 67.1 kg BMI 27.22 kg/m2 Blood Pressure 105 mm Hg/71 mm Hg Temperature Pulse Rate 65 bpm Respiratory Rate 02 Sat Mode of Delivery 97 %/ You can now view a summary of your hospital visit from the comfort of your home through a free online portal called [employer]. [employer] is a website that allows you to securely view your medical information including discharge summary, medications and follow-up visits. ??You can alsosend a secure electronic message to your doctor???s office to request appointments, renew medications or just ask a question. You can enroll at [email or web address] or register during your next office visit. [...] primary care provider, you may find a [facility] provider by calling [facility] [employer] Link at [phone]. [facility], in keeping with [facility] guidance, no longer requires face masks [...] Primary Care Member Role: PCP Address: Address: [address] [place] [address]- Care Team Related Persons Name: KIM WILD Address: home [address] [place] [address] Name: INESSA HOLLEY Address: [place] [address]
--- OUTSIDE RECORDS SUMMARY | 2024-01-30 07:40 | XMS_ITS | Continuity of Care Document ---
Author Organization [facility] Address [address] [place] [address]- Care Team Providers Care Proofer Black And White Name Role Phone Kleber Machado MD Primary Care Physician [phone] Encounter [facility] Date(s): 05/13/20 - 06/12/20 [facility] [address] [place], [place] [address] Allergies, Adverse Reactions, Alerts Substance Reaction Severity Status penicillin Vaginal discharge symptom Ac tive Immunizations Given and Recorded Vaccine Date Status Refusal Reason tetanus/diphtheria/pertussis, acel(Tdap) 1 01/11/17 Recorded 1Result Comment: given @ [facility] Medications levothyroxine 75 mcg (0.075 mg) oral [...]
--- OUTSIDE RECORDS SUMMARY | 2024-01-30 07:40 | XMS_ITS | Continuity of Care Document ---
Author Organization [facility] Address [address] [place] [address]- Care Team Providers Care Electrotype Molder Name Role Phone Kleber Machado MD Primary Care Physician Encounter [facility] Date(s): 11/10/21 - 12/10/21 [facility] [address] [place], [place] [address] Allergies, Adverse Reactions, Alerts Substance Reaction Severity [...] 1 01/11/17 Recorded 1Result Comment: given @ [facility] Medications levothyroxine 75 mcg (0.075 mg) oral tablet 1 tablet = 75 mcg, By Mouth, Daily, # 30 tablet, 1 Refills, Maintenance, 11/10/21 13:03:00 EDT, Tablet, [facility]/pharmacy #1026, Partial fill upon patient [...] 12/13/21 8:55:00 EDT, 12/06/21 8:55:00 EDT, Tablet, [facility]/pharmacy #1026, Partial fill upon patient [...] 11/08/21 9:04:00 EDT, Route to Pharmacy Electronically, [facility]/pharmacy #[id number], Partial fill upon patient [...]
--- OUTSIDE RECORDS SUMMARY | 2024-01-30 07:40 | XMS_ITS | Continuity of Care Document ---
Author Organization [facility] Address [address] [place] [address]- Care Team Providers Care Staff Nuclear Medicine Technologist Name Role Phone Mart Medeiros MD Primary Care Physician Encounter [facility] Date(s): 05/17/23 - 06/16/23 [facility] [address] [place], [place] [address] Allergies, Adverse Reactions, Alerts Substance [...] influenza virus vaccine, inactivated 04/14/13 Ludwig rded [id number] 12y+ bivalent booster vax 05/21/22 Recorded SARS-CoV-2 mRNA (ymopfvv-sjet-ezdbu) vax 11/23/21 Recorded pneumococcal 20-valent conjugate vaccine 11/08/21 Recorded zoster vaccine, inactivated 07/06/21 Recorded zoster vaccine, inactivated 05/06/21 Recorded SARS-CoV-2 (COVID-19) mRNA BNT-162b2 vac 05/20/21 Recorded SARS-CoV-2 (COVID-19) mRNA BNT-162b2 vac 11/20/20 Recorded SARS-CoV-2 (COVID-19) mRNA BNT-162b2 vac 3/28/21 Recorded tetanus/diphtheria/pertussis, acel(Tdap) 1 01/11/17 Recorded 1Result Comment: given @ [facility] Medications acetaminophen 650 mg oral tablet, extended release 2 tablet, By Mouth, 3 times a day, PRN NEEDED, MODERATE PAIN., # 100 tablet, 0 Refills, Maintenance, 11/22/22 15:25:00 EDT, [facility], 157, cm, 11/15/22 8:07:00 EDT, Height, 71.1, [...] Team Personnel Name: Mart Medeiros MD Position: [facility] Physician - Primary Care Member Role: PCP Address: Address: [address] [place] [address]- Care Team Related Persons Name: KIM WILD Address: home [address] [place] [address] Name: INESSA HOLLEY Address: [place] [address]
--- OUTSIDE RECORDS SUMMARY | 2024-01-30 07:40 | XMS_ITS | Continuity of Care Document ---
Author Organization [facility] Address [address] [place] [address]- Care Team Providers Care Real Estate Development Manager Name Role Phone Kleber Machado MD Primary Care Physician Encounter [facility] Date(s): 03/01/22 - 03/31/22 [facility] [address] [place], [place] [address] Attending Physician: Zara Crocker Admitting Physician: AdmtrZara [...] 1 01/11/17 Recorded 1Result Comment: given @ [facility] Medications Colace sodium 100 mg oral capsule 100 mg, 1, capsule, By Mouth, 2 times a day, PRN, # 100 capsule, Refills 2, Tot. Refills 2, Maintenance, for constipation, 03/27/22 8:31:00 EDT, [id number] fill upon patient request if the prescriptio... Start Date: 03/27/22 Status: Ordered levothyroxine 75 mcg (0.075 mg) oral tablet 1 tablet, By Mouth, Daily, # 30 tablet, 5 Refills, 01/10/22 14:47:00 EDT, [facility]/pharmacy #1026, 159, cm, 12/26/21 14:40:00 EDT, Height, 71.1, kg, 11/20/21 8:24:00 EDT, Dry Weight Start Date: 01/10/22 Status: Ordered levothyroxine 75 mcg (0.075 mg) oral tablet 1 tablet = 75 mcg, By Mouth, Daily, # 30 tablet, 1 Refills, Maintenance, 11/10/21 13:03:00 EDT, Tablet, [facility]/pharmacy #1026, Partial fill upon patient request [...] 30 tablet, 0 Refills,Maintenance, 03/01/22 11:55:00 EDT, [facility]/pharmacy #1... Start Date: 03/01/22 Status: Ordered PEG-3350 with Electrolytes (Eqv-NuLYTELY) oral powder for reconstitution See Instructions, No orange or lemon please. Mix powder with water according to the product label. Follow the [facility] instructions stating when to drin k [...] 03/27/22 8:44:00 EDT, Route to Pharmacy Electronically, [facility]/pharmacy #1026 Tablet, Partial fill upon patient request [...] Team Personnel Name: Kleber Machado MD Address: [address] [place] [address] Adult & Pediatric Medicine [address]
--- OUTSIDE RECORDS SUMMARY | 2024-01-30 07:40 | XMS_ITS | Continuity of Care Document ---
Author Organization [facility] Address [address] [place] [address]- Care Team Providers Care Business Transformation Manager Name Role Phone Carter RAMOS, Kleber Primary Care Physician Encounter [facility] Date(s): 10/05/22 - 11/04/22 [facility] [address] [place] [address] [place] Allergies, Adverse Reactions, Alerts Substance Reaction [...] 1 01/11/17 Recorded 1Result Comment: given @ [facility] Medications alendronate 70 mg oral tablet 1 tablet = 70 mg, By Mouth, Every week, # 13 tablet, 6 Refills, Maintenance, 07/18/22 12:28:00 EST,Tablet, [facility]/pharmacy #[id number], Partial fill upon patient request if [...] Team Personnel Name: Kleber Machado MD Position: [facility] Primary Care Physician Member Role: PCP Address: Address: [address] [place] [address] Adult [place] [address]- Care Team Related Persons Name: KIM WILD Address: home [address] [place] [address] Name: INESSA HOLLEY Address: [place] [address]
--- OUTSIDE RECORDS SUMMARY | 2024-01-30 07:40 | XMS_ITS | Continuity of Care Document ---
Author Organization [facility] Address [address] [place] [address]- Care Team Providers Care Major Gifts Officer Name Role Phone Kleber Machado MD Primary Care Physician [place] [facility] 05/09[place]20 - 06/08/20 [facility] [address] [place] [address]- [facility] Attending Physician: Zara Crocker Admitting Physician: Zara Crocker Referring Physician: AdmtrZara Allergies, Adverse Reactions, Alerts Substance Reaction Severity Status penicillin Vaginal discharge symptom Ac tive Immunizations Given and Recorded Vaccine Date Status Refusal Reason tetanus/diphtheria/pertussis, acel(Tdap) 1 01/11/17 Recorded 1Result Comment: given @ [facility] Medications levothyroxine 75 mcg (0.075 mg) [...]
--- OUTSIDE RECORDS SUMMARY | 2024-01-30 07:40 | XMS_ITS | Continuity of Care Document ---
Author Organization [facility] Address [address] [place] [address]- Care Team Providers Care Horse Racetrack Manager Name Role Phone Mala RAMOS, Mart Primary Care Physician [place] [facility] [place] Date(s): 01/07/24 - 01/14/24 [facility] [address] [place], [place] [address] Attending Physician: Herbert Madera MD Referring Physician: Felecia RAMOS, Mio Cortez Allergies, Adverse Reactions, Alerts Substance Reaction Severity [...] influenza virus vaccine, inactivated 04/14/13 Ludwig rded [id number] 12y+ bivalent booster vax 05/21/22 Recorded SARS-CoV-2 mRNA ([id number]) vax 11/23/21 Recorded pneumococcal 20-valent conjugate vaccine 11/08/21 Recorded zoster vaccine, inactivated 07/06/21 Recorded zoster vaccine, inactivated 05/06/21 Recorded SARS-CoV-2 (COVID-19) mRNA BNT-162b2 vac 05/20/21 Recorded SARS-CoV-2 (COVID-19) mRNA BNT-162b2 vac 11/20/20 Recorded SARS-CoV-2 (COVID-19) mRNA BNT-162b2 vac 10/30/20 Recorded tetanus/diphtheria/pertussis, acel(Tdap) 1 01/11/17 Recorded 1Result Comment: given @ [facility] Medications Aerochamber See Instructions, # 1 each, [...] 01/14/24 11:01:00 EDT, Route to Pharmacy Electronically, [id number], [facility]/pharmacy #[id number], may dispense any co... Start Date: 01/14/24 Stop Date: 02/13/24 Status: Ordered alendronate 70 mg oral tablet 1 tablet, By Mouth, Every week, # 12 tablet, 3 Refills, Maintenance, 09/09/23 22:32:00 EST, [id number], 157, cm, 07/01/23 8:55:00 EST, Height, 67, kg, 07/01/23 8:55:00 EST, Dry Weight Start Date: 09/09/23 Status: Ordered Azithromycin 5 Day Dose Pack 250 mg oral tablet See Instructions, as directed on package labeling 2 tablets first day then 1 tablet daily for 4 more days, # 6 tablet, 0 Refills, Maintenance, 01/14/24 11:01:00 EDT, Tablet, [id number], Partial fill upon patient request if the prescription is... Start Date: 01/14/24 Status: Ordered benzonatate 200 mg oral capsule 1 capsule = 200 mg, By Mouth, 3 times a day, PRN as needed for cough, for 7 days, # 21 capsule, 0 Refills, Acute 01/21/24 11:03:00 EDT, 01/14/24 11:03:00 EDT, Capsule, [id number], Partial fill upon patient request if the prescription is for a... Start Date: 01/14/24 Stop Date: 01/21/24 Status: Ordered Knee sleeve/support Knee sleeve/support, See [...] Refills, Maintenance, 09/06/23 20:36:00 EST, [id number], 157, cm, 07/01/23 8:55:00 EST, Height, 67, [...] Dry Weight Start Date: 09/12/23 Status: Ordered predniSONE 20 mg oral tablet 2 tablet = 40 mg, By Mouth, Daily, for 5 days, 1st dose now, then in AM daily. Take with food., # 10 tablet, 0 Refills, Acute 01/19/24 11:01:00 EDT, 01/14/24 11:01:00 EDT, Tablet, [id number] fill upon patient request if the prescripti... Start Date: 01/14/24 Stop Date: 01/19/24 Status: Ordered Problem List Condition Confirmation Course Effective Dates Status H ealth Status Informant Alopecia Confirmed Active Ganglion of left ankle Confirmed Active GERD with esophagitis; rpt EGD due 2027 Confirmed Active Microscopic hematuria; [facility] Confirmed Active Osteoporosis Confirmed Active Colon polyp Confirmed Active Acquired hypothyroidism Confirmed Active Insomnia Confirmed Active Vital Signs Most recent to oldest [Reference Range]: 1 Height 157 cm (01/07/24 8:47 AM) Weight 67.6 kg (01/07/24 8:47 AM) Oxygen Saturation [94-100 %] 97 % (01/07/24 8:47 AM) Pulse Rate [55-90 bpm] 87 bpm (01/07/24 8:47 AM) Body Mass Index [18.5-24.99 kg/m2] 27.43 kg/m2 *H* (01/07/24 8:47 AM) Blood Pressure [90-138/55-84 mm Hg] 108/ 70mm Hg (01/07/24 8:47 AM) Respiratory Rate [16-30 br/min] 14 br/mi n *L* (01/07/24 8:47 AM) Mode of Delivery (Oxygen) Room air (01/07/24 8:47 AM) Blood pressure sites Arm, right (01/07/24 8:47 AM) Dry Weight 67.6 kg (01/07/24 8:47 AM) Weight Obtained Via Standing scale (01/07/24 8:47 AM) Dry Weight Obtained Via Standing scale (01/07/24 8:47 AM) Social History Social History Type Response Smoking Status Former smoker, quit more than 30 days ago entered on: 01/07/24 Sex Patient Care team information Care Team Personnel Name: Mart Medeiros MD Position: S Physician - Primary Care Member Role: PCP Address: Address: [address] [place] [address]- Care Team Related Persons Name: KIM WILD Address: home [address] [place] [address] Name: INESSA HOLLEY Address: [place] [address]
--- OUTSIDE RECORDS SUMMARY | 2024-01-30 07:40 | XMS_ITS | Continuity of Care Document ---
Author Organization [facility] Address [address] [place] [address]- Care Team Providers Care Money Market Dealer Name Role Phone Carter RAMOS, [facility] Primary Care Physician Encounter [facility] Date(s): 11/21/21 - 12/21/21 [facility] [address] [place], [place] [address] Allergies, Adverse Reactions, Alerts Substance [...] given @ [facility] Medications levothyroxine 75 mcg (0.075 mg) [...] 11/08/21 9:04:00 EDT, Route to Pharmacy Electronically, [facility]/pharmacy #[id number], Partial fill upon patient request [...]
--- OUTSIDE RECORDS SUMMARY | 2024-01-30 07:40 | XMS_ITS | Continuity of Care Document ---
Author Organization [facility] Address [address] [place] [address]- Care Team Providers Care Penal Officer Name Role Phone Kleber Machado MD Primary Care Physician [phone] [place] [facility] [place] [facility] [id number] Date(s): 01/08/22 - 03/10/[address] [address] Discharge Disposition: A-D/C Home Attending Physician: Kleber Machado MD Admitting Physician: Kleber Machado MD Referring Physician: Kleber Machado MD Allergies, Adverse [...] 01/11/17 Recorded 1Result Comment: given @ [facility] Medications levothyroxine 75 mcg (0.075 mg) [...]
--- OUTSIDE RECORDS SUMMARY | 2024-01-30 07:40 | XMS_ITS | Continuity of Care Document ---
Author Organization [facility] Address [address] [place] [address]- Care Team Providers Care Frame Aligner Name Role Phone Carter RAMOS, Alex Primary Care Physician [phone] Encounter [facility] [place] Date(s): 12/06/21 - 12/13/21 [facility] [address] [place], [place] [address] Encounter Diagnosis Low back pain(Discharge Diagnosis) - 12/06/21 Urinary frequency(Discharge Diagnosis) - 12/06/21 Left foot pain(Discharge Diagnosis) - 12/06/21 Callus of foot(Discharge Diagnosis) - 12/06/21 Attending Physician: Praveena PERSONAL BANKER, Sabine Allergies, Adverse Reactions, Alerts Substance Reaction Severity [...] inactivated 04/14/13 Ludwig rded tetanus/diphtheria/pertussis, acel(Tdap) 1 6/9/17 Recorded 1Result Comment: given @ [facility] Medications levothyroxine 75 mcg (0.075 mg) oral [...] Dates Health Status Cl inical Service Informant Low back pain Discharge Diagnosis 12/06/21 Urinary frequency Discharge Diagnosis 12/06/21 Left foot pain Discharge Diagnosis 12/06/21 Callus of foot Discharge Diagnosis 12/06/21 Vital Signs Most recent to oldest [Reference Range]: 1 Height 159.00 cm (12/06/21 8:31 AM) Weight 70.0 kg (12/06/21 8:31 AM) Oxygen Saturation [94-100 %] 96 % (12/06/21 8:31 AM) Pulse Rate [55-90 bpm] 71 bpm (12/06/21 8:31 AM) Body Mass Index [18.5-24.99] 27.69 *H* (12/06/21 8:31 AM) Blood Pressure [90-138/55-84 mm Hg] 108/ 62mm Hg (12/06/21 8:31 AM) Blood pressure sites Arm, left (12/06/21 8:31 AM) Social History Social History Type Response Smoking Status Former smoker, quit more than 30 days ago; Other: quit smoking 15 years ago; entered on: 12/16/19 Sex
--- OUTSIDE RECORDS SUMMARY | 2024-01-30 07:40 | XMS_ITS | Continuity of Care Document ---
Author Organization [facility] Address [address] [place] [address]- Care Team Providers Care Cad Intern Name Role Phone Carter RAMOS, Kleber Primary Care Physician Encounter [facility] [place] Date(s): 10/18/22 - 11/17/22 [facility] [address] [place] [address]- [place] Allergies, Adverse Reactions, Alerts Substance Reaction Severity Status penicillin Vaginal discharge symptom Ac tive Immunizations Given and Recorded Vaccine Date Status Refusal Reason [id number] 12y+ bivalent booster vax 05/21/22 Recorded influenza [...] vaccine, inactivated 04/14/13 Ludwig rded SARS-CoV-2 mRNA ([id number]) vax 11/23/21 Recorded pneumococcal 20-valent conjugate vaccine 11/08/21 Recorded zoster vaccine, inactivated 07/06/21 Recorded zoster vaccine, inactivated 05/06/21 Recorded SARS-CoV-2 (COVID-19) mRNA BNT-162b2 vac 05/20/21 Recorded SARS-CoV-2 (COVID-19) mRNA BNT-162b2 vac 11/20/20 Recorded SARS-CoV-2 (COVID-19) mRNA BNT-162b2 vac 10/30/20 Recorded tetanus/diphtheria/pertussis, acel(Tdap) 1 01/11/17 Recorded 1Result Comment: given @ [facility] Medications alendronate 70 mg oral tablet [...] Team Personnel Name: Kleber Machado MD Position: [facility] Primary Care Physician Member Role: PCP Address: Address: [address] [place] [address] Adult & [place] [address]- Care Team Related Persons Name: KIM WILD Address: home [address] [place] [address] Name: INESSA HOLLEY Address: [place] [address]
--- OUTSIDE RECORDS SUMMARY | 2024-01-30 07:40 | XMS_ITS | Continuity of Care Document ---
Author Organization [facility] Address [address] [place] [address]- Care Team Providers Care Mouthpiece Maker Name Role Phone Kleber Machado MD Primary Care Physician Encounter [facility] Date(s): 05/13/20 - 06/12/20 [facility] [address] [place], [place] [address] Allergies, Adverse Reactions, Alerts Substance Reaction Severity Status penicillin Vaginal discharge symptom Ac tive Immunizations Given and Recorded Vaccine Date Status Refusal Reason tetanus/diphtheria/pertussis, acel(Tdap) 1 01/11/17 Recorded 1Result Comment: given @ [facility] Medications levothyroxine 75 mcg (0.075 [...]
--- OUTSIDE RECORDS SUMMARY | 2024-01-30 07:40 | XMS_ITS | Continuity of Care Document ---
Author Organization [facility] Address [address] [place] [address]- Care Team Providers Care Chassis Engineer Name Role Phone Kleber Machado MD Primary Care Physician Encounter [facility] Date(s): 03/30/21 - 04/29/21 [facility] [address] [place], [place] [address] Allergies, Adverse Reactions, Alerts Substance Reaction Severity Status penicillin Vaginal discharge symptom Ac tive Immunizations Given and Recorded Vaccine Date Status Refusal Reason SARS-CoV-2 (COVID-19) mRNA BNT-162b2 vac 11/20/20 Recorded SARS-CoV-2 (COVID-19) mRNA BNT-162b2 vac 10/30/20 Recorded tetanus/diphtheria/pertussis, acel(Tdap) 1 01/11/17 Recorded 1Result Comment: given @ [facility] Medications levothyroxine 0.05 mg oral tablet 1 [...]
--- OUTSIDE RECORDS SUMMARY | 2024-01-30 07:40 | XMS_ITS | Continuity of Care Document ---
Author Organization [facility] Address [address] [place] [address]- Care Team Providers Care Stripper Printed Circuit Boards Name Role Phone Kleber Machado MD Primary Care Physician [phone] [id number] Date[facility]/21[facility]21 - 03/28/21 [facility] [address] [place], [place] [address] Encounter Diagnosis Physical exam(Discharge Diagnosis) - 03/21/21 Insomnia(Discharge Diagnosis) - 03/21/21 Ganglion of left ankle(Discharge Diagnosis) - 03/21/21 Acquired hypothyroidism(Discharge Diagnosis) - 03/21/21 GERD without esophagitis(Discharge Diagnosis) - 03/21/21 Attending Physician: Kleber Machado MD Allergies, Adverse Reactions, Alerts Substance Reaction Severity Status penicillin Vaginal discharge symptom Ac tive Immunizations Given and Recorded Vaccine Date Status Refusal Reason SARS-CoV-2 (COVID-19) mRNA BNT-162b2 vac 11/20/20 Recorded SARS-CoV-2 (COVID-19) mRNA BNT-162b2 vac 10/30/20 Recorded tetanus/diphtheria/pertussis, acel(Tdap) 1 01/11/17 Recorded 1Result Comment: given @ [facility] Medications levothyroxine 75 mcg (0.075 mg) oral tablet 1 tablet = 75 mcg, By Mouth, Daily, # 90 tablet, 11 Refills, Maintenance, 03/21/21 8:23:00 EDT, Tablet, [id number], 159, cm, 03/21/21 7:55:00 EDT, Height Start Date: 03/21/21 Status: Ordered omeprazole 20 mg oral enteric [...] Active Sacroiliitis(Confirmed) Active Insomnia(Confirmed) Active Reflux(Confirmed) Active Diagnosis Diagnosis Type Effective Dates Health Status Clinical Service Informant Physical exam Discharge Diagnosis 03/21/21 Insomnia Discharge Diagnosis 03/21/21 Ganglion of left ankle Discharge Diagnosis 03/21/21 Acquired hypothyroidism Discharge Diagnosis 03/21/21 GERD without esophagitis Discharge Diagnosis 03/21/21 Vital Signs Most recent to oldest [Reference Range]: 1 Height 159.00 cm (03/21/21 7:55 AM) Weight 70.1 kg (03/21/21 7:55 AM) Oxygen Saturation [94-100 %] 98 % (03/21/21 7:55 AM) Pulse Rate [55-90 bpm] 71 bpm (03/21/21 7:55 AM) Body Mass Index [18.5-24.99] 27.73 *H* (03/21/21 7:55 AM) Blood Pressure [90-138/55-84 mm Hg] 118/ 80mm Hg (03/21/21 7:55 AM) Blood pressure sites Arm, left (03/21/21 7:55 AM) Social History Social History Type Response Smoking Status Former smoker, quit more than 30 days ago; Other: quit smoking 15 years ago; entered on: 12/16/19 Sex
--- OUTSIDE RECORDS SUMMARY | 2024-01-30 07:40 | XMS_ITS | Continuity of Care Document ---
Author Organization [facility] Address [address] [place] [address]- Care Team Providers Care River Expedition Guide Name Role Phone Kleber Machado MD Primary Care Physician [place] [facility] [place] Date(s): 04/10/22 - 04/17/22 [facility] [address] [place], [place] [address] Encounter Diagnosis Physical exam(Discharge Diagnosis) - 04/10/22 Hypothyroid(Discharge Diagnosis) - 04/10/22 GERD without esophagitis(Discharge Diagnosis) - 04/10/22 Attending Physician: Kleber Machado MD Allergies, Adverse [...] 1 01/11/17 Recorded 1Result Comment: given @ [facility] Medications Colace sodium 100 mg oral capsule 100 mg, 1, capsule, By Mouth, 2 times a day, PRN, # 100 capsule, Refills 2, Tot. Refills 2, Maintenance, for constipation, 03/27/22 8:31:00 EDT, Route to Pharmacy Electronically, [facility]/pharmacy #[id number], Partial fill upon patient request if the prescriptio... Start Date: 03/27/22 Status: Ordered levothyroxine 75 mcg (0.075 mg) oral tablet 1 tablet, By Mouth, Daily, # 30 tablet, 5 Refills, 01/10/22 14:47:00 EDT, [facility]/pharmacy #[id number], 159, cm, 12/26/21 14:40:00 EDT, Height, 71.1, kg, 11/20/21 8:24:00 EDT, Dry Weight Start Date: 01/10/22 Status: Ordered levothyroxine 75 mcg (0.075 mg) oral tablet 1 tablet = 75 mcg, By Mouth, Daily, # 30 tablet, 1 Refills, Maintenance, 11/10/21 13:03:00 EDT, Tablet, [facility]/pharmacy #[id number], Partial fill upon patient [...] according to the product label. Follow the [facility] instructions stating when to drin k [...] 03/27/22 8:44:00 EDT, Route to Pharmacy Electronically, [facility]/pharmacy #1026 Tablet, Partial fill upon patient [...] Clinical Service Informant Physical exam Discharge Diagnosis 04/10/22 Hypothyroid Discharge Diagnosis 04/10/22 GERD without esophagitis Discharge Diagnosis 04/10/22 Vital Signs Most recent to oldest [Reference Range]: 1 Height 159.00 cm (04/10/22 9:49 AM) Weight 65.8 kg (04/10/22 9:49 AM) Oxygen Saturation [94-100 %] 97 % (04/10/22 9:49 AM) Pulse Rate [55-90 bpm] 66 bpm (04/10/22 9:49 AM) Body Mass Index [18.5-24.99] 26.03 *H* (04/10/22 9:49 AM) Blood Pressure [90-138/55-84 mm Hg] 108/ 66mm Hg (04/10/22 9:49 AM) Mode of Delivery (Oxygen) Room air (04/10/22 9:49 AM) Blood pressure sites Arm, left (04/10/22 9:49 AM) Social History Social History Type Response Smoking Status Former smoker, quit more than 30 days ago; Other: quit smoking 15 years ago; entered on: 12/16/19 Sex Care Team Personnel Name: Kleber Machado MD Address: [address] [facility] Adult & Pediatric Medicine [place], [place] [address]
--- OUTSIDE RECORDS SUMMARY | 2024-01-30 07:40 | XMS_ITS | Continuity of Care Document ---
Author Organization [facility] Address [address] [place] [address]- Care Team Providers Care Special Agent Group Insurance Name Role Phone Carter RAMOS, [facility] Primary Care Physician Encounter [facility] Date(s): 11/24/21 - 12/24/21 [facility] [address] [place], [place] [address] Allergies, Adverse Reactions, Alerts Substance Reaction [...] 1Result Comment: given @ [facility] Medications levothyroxine 75 mcg (0.075 mg) oral [...] 11/08/21 9:04:00 EDT, Route to Pharmacy Electronically, [facility] [...]
--- OUTSIDE RECORDS SUMMARY | 2024-01-30 07:40 | XMS_ITS | Continuity of Care Document ---
Author Organization [facility] Address [address] [place] [address]- Care Team Providers Care Technology Integration Specialist Name Role Phone Kleber Machado MD Primary Care Physician Encounter [facility] Date(s): 01/24/22 - 02/23/22 [facility] [address] [place], [place] [address] Allergies, Adverse Reactions, Alerts Substance Reaction Severity [...] 1 01/11/17 Recorded 1Result Comment: given @ [facility] Medications levothyroxine 75 mcg (0.075 mg) oral tablet 1 tablet, By Mouth, Daily, # 30 tablet, 5 Refills, 01/10/22 14:47:00 EDT, [facility]/pharmacy #[id number], 159, cm, 12/26/21 14:40:00 EDT, Height, 71.1, kg, 11/20/21 8:24:00 EDT, Dry Weight Start Date: 01/10/22 Status: Ordered levothyroxine 75 mcg (0.075 mg) oral tablet 1 tablet = 75 mcg, By Mouth, Daily, # 30 tablet, 1 Refills, Maintenance, 11/10/21 13:03:00 EDT, Tablet, [facility]/pharmacy #[id number], Partial fill upon patient request [...] 11/08/21 9:04:00 EDT, Route to Pharmacy Electronically, [facility]/pharmacy #[id number], Partial fill upon patient request [...]
--- OUTSIDE RECORDS SUMMARY | 2024-01-30 07:40 | XMS_ITS | Continuity of Care Document ---
Author Organization [facility] Address [address] [place] [address]- Care Team Providers Care Helicopter Technician Name Role Phone Kleber Machado MD Primary Care Physician [phone] [id number] - 07/25/22 [facility] [address] [place], [place] [address] Encounter Diagnosis Osteoporosis(Discharge Diagnosis) - 07/18/22 Attending Physician: Kleber Machado MD Allergies, Adverse [...] 1 01/11/17 Recorded 1Result Comment: given @ [facility] Medications alendronate 70 mg oral tablet 1 tablet = 70 mg, By Mouth, Every week, # 13 tablet, 6 Refills, Maintenance, 07/18/22 12:28:00 EST,Tablet, [facility]/pharmacy #[id number], Partial fill upon patient request if the prescription is for a scheduleII opioid drug., 159, cm, 04/10/22 9:49:00 EDT, Hei... Start Date: 07/18/22 Status: Ordered calcium-vitamin D 600 mg-400 intl units oral tablet 1 tablet, By Mouth, 2 times a day, # 60 tablet, 11 Refills, Maintenance, 07/18/22 12:28:00 EST, Tablet, [facility]/pharmacy #1026, Partial fill upon patient request [...] 03/27/22 8:31:00 EDT, Route to Pharmacy Electronically, [facility]/pharmacy #1026, Partial fill upon patient request if the prescriptio... Start Date: 03/27/22 Status: Ordered levothyroxine 75 mcg (0.075 mg) oral tablet 1 tablet, By Mouth, Daily, # 30 tablet, 5 Refills, 01/10/22 14:47:00 EDT, [facility]/pharmacy #[id number], 159, cm, 12/26/21 14:40:00 EDT, Height, 71.1, kg, 11/20/21 8:24:00 EDT, Dry Weight Start Date: 01/10/22 Status: Ordered levothyroxine 75 mcg (0.075 mg) oral tablet 1 tablet = 75 mcg, By Mouth, Daily, # 30 tablet, 1 Refills, Maintenance, 11/10/21 13:03:00 EDT, Tablet, [facility]/pharmacy #[id number], Partial fill upon patient request [...] according to the product label. Follow the [facility] instructions stating when to drin k the prep fluid on the evening befoer the colonoscopy. 8 oz every 20 minutes., # 1 each, 0 Refi... Start Date: 03/27/22 Status: Ordered Senna-Time 8.6 mg oral tablet 1 OR 2 TABLETS, By Mouth, Daily at bedtime, PRN NEEDED FOR CONSTIPATION, # 60 tablet, 0 Refills,Maintenance, 04/25/22 20:10:00 EDT, [id number], 159, cm, 04/10/22 9:49:00 EDT, Height, 71.1, [...] Active Insomnia Confirmed Active Reflux Confirmed Active Diagnosis Diagnosis Type Effective Dates Health Status Cl inical Service Informant Osteoporosis Discharge Diagnosis 07/18/22 Social History Social History Type Response Smoking Status Former smoker, quit more than 30 days ago; Other: quit smoking 15 years ago; entered on: 12/16/19 Sex Patient Care team information Care Team Personnel Name: Kleber Machado MD Position: S Primary Care Physician Member Role: PCP Address: Address: [address] [place] [address] Adult & Pediatric Medicine [place], [place] [address] Care Team Related Persons Name: KIM WILD Address: home [address] [place] [id number] Name: INESSA [place]LEY Address: [place] [address]
--- OUTSIDE RECORDS SUMMARY | 2024-01-30 07:41 | XMS_ITS | Continuity of Care Document ---
Author Organization [facility] Address [address] [place] [address]- Care Team Providers Care Oral Surgery Assistant Name Role Phone Kleber Machado MD Primary Care Physician [place] [facility] [place]21 [place] 05/03/21 [facility] [address] [place], [place] [address] Allergies, Adverse Reactions, Alerts Substance Reaction Severity Status penicillin Vaginal discharge symptom Ac tive Immunizations Given and Recorded Vaccine Date Status Refusal Reason SARS-CoV-2 (COVID-19) mRNA BNT-162b2 vac 11/20/20 Recorded SARS-CoV-2 (COVID-19) mRNA BNT-162b2 vac 10/30/20 Recorded tetanus/diphtheria/pertussis, acel(Tdap) 1 01/11/17 Recorded 1Result Comment: given @ [facility] Medications levothyroxine 0.05 mg oral tablet 1 [...]
--- OUTSIDE RECORDS SUMMARY | 2024-01-30 07:41 | XMS_ITS | Continuity of Care Document ---
Author Organization [facility] Address [address] [place] [address]- Care Team Providers Care Bellman Driver Name Role Phone Carter RAMOS, Alex Primary Care Physician Encounter [facility] Date(s): 01/24/23 - 02/23/23 [facility] [address] [place], [place] [address] Attending Physician: Zara Crocker Admitting Physician: Zara Crocker Referring Physician: AdmtrZara Allergies, Adverse Reactions, Alerts Substance Reaction Severity Status penicillin Vaginal discharge symptom Ac tive Immunizations Given and Recorded Vaccine Date Status Refusal Reason [id number] 12y+ bivalent booster vax 05/21/22 Recorded influenza [...] vaccine, inactivated 04/14/13 Ludwig rded SARS-CoV-2 mRNA (ufwnwjm-oppd-pdgnk) vax 11/23/21 Recorded pneumococcal 20-valent conjugate vaccine 11/08/21 Recorded zoster vaccine, inactivated 07/06/21 Recorded zoster vaccine, inactivated 05/06/21 Recorded SARS-CoV-2 (COVID-19) mRNA BNT-162b2 vac 05/20/21 Recorded SARS-CoV-2 (COVID-19) mRNA BNT-162b2 vac 11/20/20 Recorded SARS-CoV-2 (COVID-19) mRNA BNT-162b2 vac 10/30/20 Recorded tetanus/diphtheria/pertussis, acel(Tdap) 1 01/11/17 Recorded 1Result Comment: given @ [facility] Medications acetaminophen 650 mg oral tablet, extended release 2 tablet, By Mouth, 3 times a day, PRN NEEDED, MODERATE PAIN., # 100 tablet, 0 Refills, Maintenance, 11/22/22 15:25:00 EDT, [facility], 157, cm, 11/15/22 8:07:00 EDT, Height, 71.1, [...] Refills, Maintenance, 11/22/22 15:25:00 EDT, [facility], 30, PLEASE SEE ATTACHED FOR DETAILED DIRECTIONS, [...] Active Sacroiliitis Confirmed Active Osteoporosis Confirmed Active *[id number] Fish Frog Or Oyster Farmer Nasima Berumen Confirmed Active Acquired hypothyroidism Confirmed Active Insomnia Confirmed Active Reflux Confirmed Active Social History Social History Type Response Smoking Status Former smoker, quit more than 30 days ago; Other: quit smoking 15 years ago; entered on: 12/16/19 Sex Laboratory * Event Display: Non BH Lab Results [...] Team Personnel Name: Kleber Machado MD Position: [facility] Physician - Primary Care Member Role: PCP Address: Address: [address] [place] [address] Adult & [place] [address]- Care Team Related Persons Name: KIM WILD Address: home [address] [place] [id number] Name: INESSA HOLLEY Address: [place] [address]
--- OUTSIDE RECORDS SUMMARY | 2024-01-30 07:41 | XMS_ITS | Continuity of Care Document ---
Author Organization [facility] Address [address] [place] [address]- Care Team Providers Care Equipment Service Engineer Name Role Phone Mart Medeiros MD Primary Care Physician [phone] En[place] [facility] [place] 09/11/23 - 10/11/23 [facility] [address] [place], [place] [address] Allergies, Adverse Reactions, Alerts Substance [...] influenza virus vaccine, inactivated 04/14/13 Ludwig rded [id number] 12y+ bivalent booster vax 05/21/22 Recorded SARS-CoV-2 mRNA (hlypxvo-ipcv-mokua) vax 11/23/21 Recorded pneumococcal 20-valent conjugate vaccine 11/08/21 Recorded zoster vaccine, inactivated 07/06/21 Recorded zoster vaccine, inactivated 05/06/21 Recorded SARS-CoV-2 (COVID-19) mRNA BNT-162b2 vac 05/20/21 Recorded SARS-CoV-2 (COVID-19) mRNA BNT-162b2 vac 11/20/20 Recorded SARS-CoV-2 (COVID-19) mRNA BNT-162b2 vac 10/30/20 Recorded tetanus/diphtheria/pertussis, acel(Tdap) 1 01/11/17 Recorded 1Result Comment: given @ [facility] Medications acetaminophen 650 mg oral tablet, extended release 2 tablet, By Mouth, 3 times a day, PRN NEEDED, MODERATE PAIN., # 100 tablet, 0 Refills, Maintenance, 11/22/22 15:25:00 EDT, [facility], 157, cm, 11/15/22 8:07:00 EDT, Height, 71.1, kg, 11/20/21 8:24:00 EDT, Dry Weight Start Date: 11/22/22 Status: Ordered alendronate 70 mg oral tablet 1 tablet, By Mouth, Every week, # 12 tablet, 3 Refills, Maintenance, 09/09/23 22:32:00 EST, [facility], 157, cm, 07/01/23 8:55:00 EST, Height, 67, kg, 07/01/23 8:55:00 EST, Dry Weight Start Date: 09/09/23 Status: Ordered calcium-vitamin D 600 mg-400 intl units oral tablet 1 tablet, By Mouth, 2 times a day, # 180 tablet, 3 Refills, Maintenance, 09/09/23 22:32:00 EST, [facility], 90, TAKE 1 TABLET BY MOUTH TWICE [...] Refills, Maintenance, 09/06/23 20:36:00 EST, [facility], 157, cm, 07/01/23 8:55:00 EST, Height, 67, [...] EGD due 2027 Confirmed Active Microscopic hematuria; [facility] Confirmed Active Osteoporosis Confirmed Active [...] Primary Care Member Role: PCP Address: Address: [address] [place] [address]- Care Team Related Persons Name: KIM WILD Address: home [address] [place] [address] Name: INESSA HOLLEY Address: [place] [address]
--- OUTSIDE RECORDS SUMMARY | 2024-01-30 07:41 | XMS_ITS | Continuity of Care Document ---
Author Organization [facility] Address [address] [place] [address]- Care Team Providers Care Gluer Machine Operator Name Role Phone Mart Medeiros MD Primary Care Physician Encounter [facility] Date(s): 10/08/23 - 11/07/23 [facility] [address] [place], [place] [address] Allergies, Adverse Reactions, Alerts Substance Reaction Severity Status penicillin Vaginal discharge symptom Ac tive Immunizations Given and Recorded Vaccine Date Status Refusal Reason influenza virus vaccine, inactivated 04/04/23 Ludwig rded influenza virus vaccine, inactivated 04/03/22 Ludwig rded influenza virus vaccine, inactivated 04/13/21 Ludwig rded influenza virus vaccine, inactivated 04/30/19 Ludwig rded influenza virus vaccine, inactivated 04/11/18 Ludiwg rded influenza virus vaccine, inactivated 04/19/17 Ludwig rded influenza virus vaccine, inactivated 04/25/16 Ludwig rded influenza virus vaccine, inactivated 05/12/14 Ludwig rded influenza virus vaccine, inactivated 04/14/13 Ludwig rded [id number] 12y+ bivalent booster vax 05/21/22 Recorded SARS-CoV-2 mRNA (siijpef-edrf-kterf) vax 11/23/21 Recorded pneumococcal 20-valent conjugate vaccine 11/08/21 Recorded zoster vaccine, inactivated 07/06/21 Recorded zoster vaccine, inactivated 05/06/21 Recorded SARS-CoV-2 (COVID-19) mRNA BNT-162b2 vac 05/20/21 Recorded SARS-CoV-2 (COVID-19) mRNA BNT-162b2 vac 11/20/20 Recorded SARS-CoV-2 (COVID-19) mRNA BNT-162b2 vac 10/30/20 Recorded tetanus/diphtheria/pertussis, acel(Tdap) 1 01/11/17 Recorded 1Result Comment: given @ [facility] Medications acetaminophen 650 mg oral tablet, extended release 2 tablet, By Mouth, 3 times a day, PRN NEEDED, MODERATE PAIN., # 100 tablet, 0 Refills, Maintenance, 11/22/22 15:25:00 EDT, [facility], 157, cm, 11/15/22 8:07:00 EDT, Height, 71.1, kg, 11/20/21 8:24:00 EDT, Dry Weight Start Date: 11/22/22 Status: Ordered alendronate 70 mg oral tablet 1 tablet, By Mouth, Every week, # 12 tablet, 3 Refills, Maintenance, 09/09/23 22:32:00 EST, [facility], 157, cm, 07/01/23 8:55:00 EST, Height, 67, kg, 07/01/23 8:55:00 EST, Dry Weight Start Date: 09/09/23 Status: Ordered calcium-vitamin D 600 mg-400 intl units oral tablet 1 tablet, By Mouth, 2 times a day, # 180 tablet, 3 Refills, Maintenance, 09/09/23 22:32:00 EST, [facility], 90, TAKE 1 TABLET BY MOUTH TWICE [...] Refills, Maintenance, 09/06/23 20:36:00 EST, [facility], 157, cm, 07/01/23 8:55:00 EST, Height, 67, [...] EGD due 2027 Confirmed Active Microscopic hematuria; [facility]rology Confirmed Active Osteoporosis Confirmed [...] Care Member Role: PCP Address: Address: [address] [place] [address]- Care Team Related Persons Name: KIM WILD Address: home [address] [place] [address] Name: INESSA HOLLEY Address: [place] [address]
--- OUTSIDE RECORDS SUMMARY | 2024-01-30 07:41 | XMS_ITS | Continuity of Care Document ---
Author Organization [facility] Address [address] [place] [address]- Care Team Providers Care Health Advisor Name Role Phone Carter RAMOS, [facility] Primary Care Physician [phone] Encounter [facility] Date(s): 01/14/23 - 02/13/23 [facility] [address] [place], [place] [address] Allergies, Adverse Reactions, Alerts Substance Reaction Severity Status penicillin Vaginal discharge symptom Ac tive Immunizations Given and Recorded Vaccine Date Status Refusal Reason [id number] 12y+ bivalent booster vax 05/21/22 Recorded influenza [...] vaccine, inactivated 04/14/13 Ludwig rded SARS-CoV-2 mRNA (jpjwnfl-oasp-nqjbk) vax 11/23/21 Recorded pneumococcal 20-valent conjugate vaccine 11/08/21 Recorded zoster vaccine, inactivated 07/06/21 Recorded zoster vaccine, inactivated 05/06/21 Recorded SARS-CoV-2 (COVID-19) mRNA BNT-162b2 vac 05/20/21 Recorded SARS-CoV-2 (COVID-19) mRNA BNT-162b2 vac 11/20/20 Recorded SARS-CoV-2 (COVID-19) mRNA BNT-162b2 vac 10/30/20 Recorded tetanus/diphtheria/pertussis, acel(Tdap) 1 01/11/17 Recorded 1Result Comment: given @ [facility] Medications acetaminophen 650 mg oral tablet, extended release 2 tablet, By Mouth, 3 times a day, PRN NEEDED, MODERATE PAIN., # 100 tablet, 0 Refills, Maintenance, 11/22/22 15:25:00 EDT, [facility], 157, cm, 11/15/22 8:07:00 EDT, Height, 71.1, [...] Refills, Maintenance, 11/22/22 15:25:00 EDT, [facility], 30, PLEASE SEE ATTACHED FOR DETAILED DIRECTIONS, [...] Active Sacroiliitis Confirmed Active Osteoporosis Confirmed Active *[id number] Welfare Aide Nasima Berumen Confirmed Active Acquired hypothyroidism Confirmed Active Insomnia Confirmed Active Reflux Confirmed Active Social History Social History Type Response Smoking Status Former smoker, quit more than 30 days ago; Other: quit smoking 15 years ago; entered on: 12/16/19 Sex Patient Care team information Care Team Personnel Name: Kleber Machado MD Position: S Physician - Primary Care Member Role: PCP Address: Address: [address] [place] [address] Adult [place] [address]- Care Team Related Persons Name: KIM WILD Address: home [address] [place] [address] Name: INESSA HOLLEY Address: [place] [address]
--- OUTSIDE RECORDS SUMMARY | 2024-01-30 07:41 | XMS_ITS | Continuity of Care Document ---
Author Organization [facility] Address [address] [place] [address]- Care Team Providers Care Turner In Name Role Phone Kleber Machado MD Primary Care Physician [phone] Encounter [facility] [place] Date(s): 10/05/22 - 11/04/22 [facility] [address] [place], [place] [address] Allergies, Adverse Reactions, [...] 1 01/11/17 Recorded 1Result Comment: given @ [facility] Medications alendronate 70 mg oral tablet 1 tablet = 70 mg, By Mouth, Every week, # 13 tablet, 6 Refills, Maintenance, 07/18/22 12:28:00 EST,Tablet, [facility]/pharmacy #[id number], Partial fill upon patient request [...] Refills, Maintenance, 11/10/21 13:03:00 EDT, Tablet, [facility]/pharmacy #[id number], Partial fill upon patient request [...] Team Personnel Name: Kleber Machado MD Position: [facility] Primary Care Physician Member Role: PCP Address: Address: [address] [place] [address] Adult & [place] [address]- Care Team Related Persons Name: KIM WILD Address: home [address] [place] [id number] Name: INESSA HOLLEY Address: [place] [address]
--- OUTSIDE RECORDS SUMMARY | 2024-01-30 07:41 | XMS_ITS | Continuity of Care Document ---
Author Organization [facility] Address [address] [place] [address]- Care Team Providers Care Skatesman Name Role Phone Mart Medeiros MD Primary Care Physician [place] [facility] [place](s): 09/10/23 - 10/10/23 [facility] [address] [place], [place] [address] Allergies, Adverse Reactions, Alerts Substance Reaction [...] influenza virus vaccine, inactivated 04/14/13 Ludwig rded [id number] 12y+ bivalent booster vax 05/21/22 Recorded SARS-CoV-2 mRNA (sqvtzdi-ihda-pnsfb) vax 11/23/21 Recorded pneumococcal 20-valent conjugate vaccine 11/08/21 Recorded zoster vaccine, inactivated 07/06/21 Recorded zoster vaccine, inactivated 05/06/21 Recorded SARS-CoV-2 (COVID-19) mRNA BNT-162b2 vac 05/20/21 Recorded SARS-CoV-2 (COVID-19) mRNA BNT-162b2 vac 11/20/20 Recorded SARS-CoV-2 (COVID-19) mRNA BNT-162b2 vac 10/30/20 Recorded tetanus/diphtheria/pertussis, acel(Tdap) 1 01/11/17 Recorded 1Result Comment: given @ [facility] Medications acetaminophen 650 mg oral tablet, extended release 2 tablet, By Mouth, 3 times a day, PRN NEEDED, MODERATE PAIN., # 100 tablet, 0 Refills, Maintenance, 11/22/22 15:25:00 EDT, [facility], 157, cm, 11/15/22 8:07:00 EDT, Height, 71.1, kg, 11/20/21 8:24:00 EDT, Dry Weight Start Date: 11/22/22 Status: Ordered alendronate 70 mg oral tablet 1 tablet, By Mouth, Every week, # 12 tablet, 3 Refills, Maintenance, 09/09/23 22:32:00 EST, [facility], 157, cm, 07/01/23 8:55:00 EST, Height, 67, kg, 07/01/23 8:55:00 EST, Dry Weight Start Date: 09/09/23 Status: Ordered calcium-vitamin D 600 mg-400 intl units oral tablet 1 tablet, By Mouth, 2 times a day, # 180 tablet, 3 Refills, Maintenance, 09/09/23 22:32:00 EST, [facility], 90, TAKE 1 TABLET BY MOUTH TWICE [...] Refills, Maintenance, 09/06/23 20:36:00 EST, [facility], 157, cm, 07/01/23 8:55:00 EST, Height, 67, [...] EGD due 2027 Confirmed Active Microscopic hematuria; [facility]rology Confirmed Active Osteoporosis Confirmed Active [...] Primary Care Member Role: PCP Address: Address: [address] [place] [address]- Care Team Related Persons Name: KIM WILD Address: home [address] [place] [address] Name: INESSA HOLLEY Address: [place] [address]
--- OUTSIDE RECORDS SUMMARY | 2024-01-30 07:41 | XMS_ITS | Continuity of Care Document ---
Author Organization [facility] Address [address] [place] [address]- Care Team Providers Care Rug Measurer Name Role Phone Mart Medeiros MD Primary Care Physician [phone] En[place] [facility] [place] Date(s): 07/01/23 - 07/31/23 [facility] [address] [place], [place] [address] Attending Physician: Zara Crocker Admitting Physician: AdmtrZara [...] influenza virus vaccine, inactivated 04/14/13 Ludwig rded [id number] 12y+ bivalent booster vax 05/21/22 Recorded SARS-CoV-2 mRNA (zapwsfs-kwzi-rrnlz) vax 11/23/21 Recorded pneumococcal 20-valent conjugate vaccine 11/08/21 Recorded zoster vaccine, inactivated 07/06/21 Recorded zoster vaccine, inactivated 05/06/21 Recorded SARS-CoV-2 (COVID-19) mRNA BNT-162b2 vac 05/20/21 Recorded SARS-CoV-2 (COVID-19) mRNA BNT-162b2 vac 11/20/20 Recorded SARS-CoV-2 (COVID-19) mRNA BNT-162b2 vac 10/30/20 Recorded tetanus/diphtheria/pertussis, acel(Tdap) 1 01/11/17 Recorded 1Result Comment: given @ [facility] Medications acetaminophen 650 mg oral tablet, extended release 2 tablet, By Mouth, 3 times a day, PRN NEEDED, MODERATE PAIN., # 100 tablet, 0 Refills, Maintenance, 11/22/22 15:25:00 EDT, [facility], 157, cm, 11/15/22 8:07:00 EDT, Height, 71.1, [...] EGD due 2027 Confirmed Active Microscopic hematuria; [facility] Confirmed Active Osteoporosis Confirmed Active Colon polyp Confirmed Active Acquired hypothyroidism Confirmed Active Insomnia Confirmed Active Social History Social History Type Response Smoking Status Former smoker, quit more than 30 days ago; Other: quit smoking more than 15 years ago; entered on: 04/22/23 Sex Laboratory * Event Display: Non BH [...] Team Personnel Name: Mart Medeiros MD Position: [facility] Physician - Primary Care Member Role: PCP Address: Address: [address] [place] [address]- Care Team Related Persons Name: KIM IWLD Address: home [address] [place] [address] Name: INESSA HOLLEY Address: [place] [address]
--- OUTSIDE RECORDS SUMMARY | 2024-01-30 07:41 | XMS_ITS | Continuity of Care Document ---
Author Organization [facility] Address [address] [place] [address]- Care Team Providers Care Box Office Manager Name Role Phone Mart Medeiros MD Primary Care Physician [facility]counter [facility] Date(s): 05/14/23 - 06/13/23 [facility] [address] [place], [place] [address] Allergies, Adverse Reactions, Alerts Substance [...] influenza virus vaccine, inactivated 04/14/13 Ludwig rded [id number] 12y+ bivalent booster vax 05/21/22 Recorded SARS-CoV-2 mRNA (wbwggvp-sspu-pdkjc) vax 11/23/21 Recorded pneumococcal 20-valent conjugate vaccine 11/08/21 Recorded zoster vaccine, inactivated 07/06/21 Recorded zoster vaccine, inactivated 05/06/21 Recorded SARS-CoV-2 (COVID-19) mRNA BNT-162b2 vac 05/20/21 Recorded SARS-CoV-2 (COVID-19) mRNA BNT-162b2 vac 11/20/20 Recorded SARS-CoV-2 (COVID-19) mRNA BNT-162b2 vac 3/28/21 Recorded tetanus/diphtheria/pertussis, acel(Tdap) 1 01/11/17 Recorded 1Result Comment: given @ [facility] Medications acetaminophen 650 mg oral tablet, extended release 2 tablet, By Mouth, 3 times a day, PRN NEEDED, MODERATE PAIN., # 100 tablet, 0 Refills, Maintenance, 11/22/22 15:25:00 EDT, [facility], 157, cm, 11/15/22 8:07:00 EDT, Height, 71.1, [...] Team Personnel Name: Mart Medeiros MD Position: [facility] Physician - Primary Care Member Role: PCP Address: Address: [address] [place] [address]- Care Team Related Persons Name: KIM WILD Address: home [address] [place] [address] Name: INESSA HOLLEY Address: [place] [address]
--- OUTSIDE RECORDS SUMMARY | 2024-01-30 07:41 | XMS_ITS | Continuity of Care Document ---
Author Organization [facility] Address [address] [place] [address]- Care Team Providers Care Mop Maker Name Role Phone Kleber Machado MD Primary Care Physician [place] [facility] [place] Date(s): 12/07/21 - 01/06/22 [facility] [address] [place], [place] [address] Allergies, Adverse Reactions, Alerts Substance [...] 1 01/11/17 Recorded [facility] levothyroxine 75 mcg (0.075 mg) oral tablet 1 tablet = 75 mcg, By Mouth, Daily, # 30 tablet, 1 Refills, Maintenance, 11/10/21 13:03:00 EDT, Tablet, [facility]/pharmacy #[id number], Partial fill upon patient request [...] 11/08/21 9:04:00 EDT, Route to Pharmacy Electronically, [facility]/pharmacy #[id number], Partial fill upon patient request [...]
--- OUTSIDE RECORDS SUMMARY | 2024-01-30 07:41 | XMS_ITS | Continuity of Care Document ---
Author Organization [facility] Address [address] [place] [address]- Care Team Providers Care Conduit Mechanic Name Role Phone Mart Medeiros MD Primary Care Physician Encounter [facility] [place](s): 05/21/23 - 05/28/23 [facility] [address] [place], [place] [address] Encounter Diagnosis Lumbar radiculopathy(Discharge Diagnosis) - 05/21/23 Osteoporosis(Discharge Diagnosis) - 05/21/23 Wedging of vertebra(Discharge Diagnosis) - 05/21/23 Unilateral primary osteoarthritis, left knee(Discharge Diagnosis) - 05/21/23 Attending Physician: Demarcus RAMOS, Kar Allergies, Adverse Reactions, Alerts Substance Reaction Severity [...] influenza virus vaccine, inactivated 04/14/13 Ludwig rded [id number] 12y+ bivalent booster vax 05/21/22 Recorded SARS-CoV-2 mRNA ([id number]) vax 11/23/21 Recorded pneumococcal 20-valent conjugate vaccine [...] Refills, Maintenance, 11/22/22 15:25:00 EDT, [id number], 157, cm, 11/15/22 8:07:00 EDT, Height, 71.1, [...] EGD due 2027 Confirmed Active Microscopic hematuria; [facility] Confirmed Active Osteoporosis Confirmed Active Colon polyp Confirmed Active Acquired hypothyroidism Confirmed Active Insomnia Confirmed Active Diagnosis Diagnosis Type Effective Dates Health Status Clinical Service Informant Lumbar radiculopathy Discharge Diagnosis 05/21/23 Osteoporosis Discharge Diagnosis 05/21/23 Wedging of vertebra Discharge Diagnosis 05/21/23 Unilateral primary osteoarthritis, left knee Discharge Diagnosis 05/21/23 Vital Signs Most recent to oldest [Reference Range]: 1 Height 157 cm (05/21/23 10:07 AM) Weight 66.9 kg (05/21/23 10:07 AM) Oxygen Saturation [94-100 %] 97 % (05/21/23 10:07 AM) Pulse Rate [55-90 bpm] 66 bpm (05/21/23 10:07 AM) Body Mass Index [18.5-24.99 kg/m2] 27.14 kg/m2 *H* (05/21/23 10:07 AM) Blood Pressure [90-138/55-84 mm Hg] 123/ 87mm Hg (05/21/23 10:07 AM) Blood pressure sites Arm, left (05/21/23 10:07 AM) Weight Obtained Via Standing scale (05/21/23 10:07 AM) Social History Social History Type Response Smoking Status Former smoker, quit more than 30 days ago; Other: quit smoking more than 15 years ago; entered on: 04/22/23 Sex Note * Rozina Echeverria: PERFORM, SIGN, VERIFY Event Display: Patient Education/Instruction Authored Date: [id number] [facility] *[facility] Clinical Summary Name KWASI WILD Age 67 Years 1955 PCP Mart Medeiros MD PCP Visit Date 05/21/2023 09:35:00 Additional Instructions: Scheduled Appointments?? Future Appointments ?No Future Appointments Scheduled Follow-Up Instructions ?? With: Address: When: Mart Medeiros MD 05/21/2023 12:00 AM Comments: As needed Diagnosis Collapsed vertebra, not elsewhere classified, lumbar region, initial encounter for fracture; Unilateral primary osteoarthritis, left knee; Radiculopathy, lumbar region; Age-related osteoporosis without current pathological fracture Medications: Please continue your medications until treatment is completed or stopped by your provider. Discuss any questions related to medications with your provider. New Medications [facility]/pharmacy #[id number], [address], [place] [id number], [phone] Durable Medical Equipment (Knee sleeve/support) diagnosis: Left knee Osteoarthritis. Refills: 0. Next Dose: Medications to Continue [...] orders Vital Signs Height 157 cm Weight 66.9 kg BMI 27.14 kg/m2 Blood Pressure 123 mm Hg/87 mm Hg Temperature Pulse Rate 66 bpm Respiratory Rate 02 Sat Mode of Delivery 97 %/ You can now view a summary of your hospital visit from the comfort of your home through a free online portal called [employer]. [employer] is a website that allows you to securely view your medical information including discharge summary, medications and follow-up visits. ??You can alsosend a secure electronic message to your doctor???s office to request appointments, renew medications or just ask a question. You can enroll at [email or web address] or register during your next office [...] primary care provider, you may find a [facility] provider by calling [facility] [employer] Link at [phone]. [facility], in keeping with [facility] guidance, no longer requires face [...] format to support your individualized medical care. Leg and Knee Exercises: Step-Ups This exercise is designed to stretch and strengthen your knee. Before beginning, read through all the instructions. While exercising, breathe normally and use smooth movements. If you feel any pain, stop the exercise. If pain persists, inform your healthcare provider. 1. After a brief warm-up, such as brisk walking for a few minutes, stand with your foot on a??3-inch to??5-inch support (such as a block of wood) and the other foot flat on the floor. 2. Shift your weight onto the foot on the block, straightening that knee and raising your other foot off the floor. Then slowly lower the foot until only the heel touches the floor. 3. Return to starting position. 4. Repeat times. Do sets a day. Caution ??? Don???t lock your knees. ??? Keep your weight on the foot that???s on the block??? don???t push off from the floor. ?? [id number] [employer]. [address] [place] [address], [place] [address]. All rights reserved. This information is not intended as a substitute for professional medical care. Always follow your healthcare professional's instructions. Leg and Knee Exercises: Heel Raise This exercise is designed to strengthen your knee and calf. Before beginning, read through all the instructions. While exercising, breathe normally and use smooth movements. If you feel any pain, stop the exercise. If pain persists, inform your healthcare provider. Caution ??? Don???t lock your knees. ??? Don???t arch your back. ??? Stand with both feet flat on the floor, shoulder-width apart. ??? If you need support, steady yourself with your hand on a ledge, wall, or table. ??? Raise both heels so you???re standing on your toes. ??? Hold for seconds. Slowly lower your heels to the floor. ??? Repeat times. Do sets a day. Note:??As you become stronger, stand on one foot at a time, and raise that heel off the floor. ?? [employer]. [address] [place] [address]. All rights reserved. This information is not intended as a substitute for professional medical care. Always follow your healthcare professional's instructions. Leg and Knee Exercises: Leg Press The following exercise helps build strong, balanced leg muscles. Make sure to adjust exercise machines as instructed by your physical therapist. He or she will tell you how many times to do the exercise. Note:??To prevent injury, always warm up and stretch before your strengthening exercises. Stop any exercise that causes pain. Discuss it with your physical therapist or doctor. ??? Start with your leg??bent so your knee is at a??90-degree angle. ??? Push with your leg until it is almost completely straight. Be sure not to lock your knee. ??? Slowly and steadily return your leg to its original position. ?? [employer]. [address] [place] [address]. All rights reserved. This information is not intended as a substitute for professional medical care. Always follow your healthcare professional's instructions. Leg and Knee Exercises: Leg Lunge This exercise is designed to stretch and strengthen your knee. Before beginning, read through all the instructions. Start with a warm-up, which can help prevent muscle soreness and improve coordination so you do not fall. While exercising, breathe normally and use smooth movements. If you feel any pain, stop the exercise. If pain persists, call your healthcare provider. 1. After a brief warm-up, such as brisk walking for a few minutes, stand with your feet shoulder-width apart. 2. With your foot, step out and lower yourself into a comfortable position. Keep your back straight and your feet pointing straight ahead. As you step, the heel of the other foot lifts off the floor. 3. Return smoothly to your starting position. 4. Repeat times. Do sets a day. Caution ??? Don???t let your forward knee go past your toes. ??? Don???t lunge so far that your rear knee touches the floor. ??? Keep knees in line with the second toe. ?? [employer]. [address] [place] [address]. All rights reserved. This information is not intended as a substitute for professional medical care. Always follow your healthcare professional's instructions. Quad Set for Leg and Knee This exercise is designed to stretch and strengthen your knee. Before beginning, read through all the instructions. While exercising, breathe normally and use smooth movements. If you feel any pain, stop the exercise. If pain persists, call your healthcare provider. 1.?? Sit on the floor with one leg straight, the other bent. 2.?? Flex the foot of your straight leg by pointing your toes toward you. Press the back of your knee into the floor while tightening the muscle on the top of your thigh. Hold for seconds. Then relax. 3.?? Repeat times. Do sets a day. Caution ??? Don???t arch your back. ??? Don???t hunch your shoulders. ?? [employer]. [address] [place] [address]. All rights reserved. This information is not intended as a substitute for professional medical care. Always follow your healthcare professional's instructions. Back Care Tips Caring for your back These are things you can do to prevent a recurrence of acute back pain and to reduce symptoms from chronic back pain: ??? Maintain a healthy weight. If you are overweight, losing weight will help most types of back pain. ??? Exercise is an important part of recovery from most types of back pain. The back is supported by the muscles behind and in front of the spine. This means both the back muscles and the abdominal muscles must be strengthened to provide better support for your spine. ??? Swimming and brisk walking are good overall exercises to improve your fitness level. ??? Practice safe lifting methods (below). ??? Practice good posture when sitting, standing and walking. Avoid prolonged sitting. This puts more stress on the lower back than standing or walking. ??? Wear quality shoes with sufficient arch support. Foot and ankle alignment can affect back symptoms. Women should avoid high heels. ??? Therapeutic massage can help?relax the back muscles without stretching them. ??? During the first 24 to 72 hours after an acute injury or flare-up of chronic back pain, apply an ice pack to the painful area for 20 minutes and then remove it for 20 minutes over a period of 60 to 90 minutes or several times a day. As a safety precaution, do not use a heating pad at bedtime. Sleeping on a heating pad can lead to skin gabriel or tissue damage. ??? Ice and heat therapies can be alternated. Medications Talk to your doctor before using medications, especially if you have other medical problems or are taking other medicines. ??? You may use acetaminophen or ibuprofen to control pain, unless other pain medicine was prescribed. If you have chronic conditions like diabetes, liver or kidney disease, stomach ulcers or gastrointestinal bleeding, or are taking blood thinners, talk with your doctor before taking any meidcations. ??? Be careful if you are given prescription pain medicines, narcotics, or medication for muscle spasm. They can cause drowsiness, affect your coordination, reflexes and judgment. Do not drive or operate heavy machinery. Lumbar stretch Here is a simple stretching exercise that will help relax muscle spasm and keep your back more limber. If exercise makes your back pain worse, don???t do it. ??? Lie on your back with your knees bent and both feet on the ground. ??? Slowly raise your left knee to your chest as you flatten your lower back against the floor. Hold for 5 seconds. ??? Relax and repeat the exercise with your right knee. ??? Do 10 of these exercises for each leg. Safe lifting method ??? Don???t bend over at the waist to lift an object off the floor.?? Instead, bend your knees and hips in a squat. ??? Keep your back and head upright ??? Hold the object close to your body, directly in front of you. ??? Straighten your legs to lift the object. ??? Lower the object to the floor in the reverse fashion. ??? If you must slide something across the floor, push it. Posture tips Sitting Sit in chairs with straight backs or low-back support. rKeep your k nees lower than your hip, with your feet flat on the floor. When driving, sit up straight. Adjust the seat forward so you are not leaning toward the steering wheel.?? A small pillow or rolled towel behind your lower back may help if you are driving long distances. Standing When standing for long periods, shift most of your weight to one leg at a time. Alternate legs every few minutes. Sleeping The best way to sleep is on your side with your knees bent. Put a low pillow under your head to support your neck in a neutral spine position. Avoid thick pillows that bend your neck to one side. Puta pillow between your legs to further relax your lower back. If you sleep on your back, put pillowsunder your knees to support your legs in a slightly flexed position. Use a firm mattress. If your mattress sags, replace it, or use a 1/2-inch plywood board under the mattress to add support. Follow-up care Follow up with your??health care provider??or as directed by our staff. If X-rays, a CT scan or an MRI scan were taken, they will be reviewed by a radiologist. You will benotified of any new findings that may affect your care. Call 911 Seek emergency medical care if any of the following occur: ??? Trouble breathing ??? Confusion ??? Very drowsy or trouble breathing ??? Fainting or loss of consciousness ??? Rapid or very slow heart rate ??? Loss of?? bwel or bladder control When to seek medical care Call your health care provider if any of the following occur: ??? Pain becomes worse or spreads to your arms or legs ??? Weakness or numbness in one or both arms or legs ??? Numbness in the groin area ?? [id number] [employer]. [address] [place] [address], [place] [address]. All rights reserved. This information is not intended as a substitute for professional medical care. Always follow your healthcare professional's instructions. Exercises To Strengthen Your Lower Back Strong lower-back and abdominal muscles work together to support your spine. The exercises below will help strengthen the muscles of the lower back. It is important that you begin exercising slowly and increase levels gradually. Always begin any exercise program with stretching. If you feel pain while doing any of these exercises, stop and talk to your doctor about a more specific exercise program that better suits your condition. Low back stretch The point of stretching is to make??you more flexible and increase your range of motion. Stretch only as much as you are able. Stretch slowly. Do not push your stretch to the limit. If at any point you feel pain while stretching, this is your (temporary) limit. ??? Lie on your back with your knees bent and both feet on the ground. ??? Slowly raise your left knee to your chest as you flatten your lower back against the floor. Hold for 5 seconds. ??? Relax and repeat the exercise with your right knee. ??? Do 10 of these exercises for each leg. ??? Repeat hugging both knees to your chest at the same time. Building lower back strength Start your exercise routine with 10 to 30 minutes a day, 1 to 3 times a day. Initial exercises Lying on your back: 1. Ankle pumps: Move your foot up and down, towards your head, and then away. Repeat 10 times with each foot. 2. Heel slides: Slowly bend your knee, drawing the heel of your foot towards you. Then slide your heel/foot??from you, straightening your knee. Do not lift your foot off the floor (this is not a leg lift). 3. Abdominal contraction: Bend your knees and put your hands on your stomach. Tighten your stomach muscles. Hold for 5 seconds, then relax. Repeat 10 times. 4. Straight leg raise: Bend one leg at the knee and keep the other leg straight. Tighten your stomach muscles. Slowly lift your straight leg 6 to 12 inches off the floor and hold for up to 5 seconds.Repeat 10 times on each side. Standin. Wall squats: Stand with your back against the wall. Move your feet about 12 inches away from thewall. Tighten your stomach muscles, and slowly bend your knees until they are at about a 45 degree angle. Do not go down too far. Hold about 5 seconds. Then slowly return to your starting position. Repeat 10 times. 2. Heel raises: Stand facing the wall. Slowly raise the heels of your feet up and down, while keeping your toes on the floor. If you have trouble balancing, you can touch the wall with your hands. Repeat 10 times. More advanced exercises When you feel comfortable enough, try these exercises. 1. Kneeling lumbar extension: Begin on your hands and knees. At the same time, raise and straightenyour right arm and left leg until they are parallel to the ground. Hold for 2 seconds and come backslowly to a starting position. Repeat with left arm and right leg, alternating 10 times. 2. Prone lumbar extension: Lie face down, arms extended overhead, palms on the floor. At the same time, raise your right arm and left leg as high as comfortably possible. Hold for 10 seconds and slowly return to start. Repeat with left arm and right leg, alternating 10 times. Gradually build up to 20 times. (Advanced: Repeat this exercise raising both arms and both legs a few inches off the floorat the same time. Hold for 5 seconds and release.) 3. Pelvic tilt: Lie on the floor on your back with your knees bent at 90 degrees. Your feet should be flat on the floor. Inhale, exhale, then slowly contract your abdominal muscles bringing your navel toward your spine. Let your pelvis rock back until your lower back is flat on the floor. Hold for 10 seconds while breathing smoothly. 4. Abdominal crunch: Perform a pelvic tilt (above) flattening your lower back against the floor. Holding the tension in your abdominal muscles, take another breath and raise your shoulder blades off the ground (this is not a full sit- up). Keep your head in line with your body (don???t bend your neck forward). Hold for 2 seconds, then slowly lower. ?? [id number] [employer] [place] [address], [place] [address]. All rights reserved. This information is not intended as a substitute for professional medical care. Always follow your healthcare professional's instructions. Patient Care team information Care Team Personnel Name: Mart Medeiros MD Position: S Physician - Primary Care Member Role: PCP Address: Address: [address] [place] [address]- Care Team Related Persons Name: KMI WILD Address: home [address] [place] [id number] Name: INESSA HOLLEY Address: [place] [address]
--- OUTSIDE RECORDS SUMMARY | 2024-01-30 07:41 | XMS_ITS | Continuity of Care Document ---
Author Organization [facility] Address [address] [place] [address]- Care Team Providers Care High School Band Director Name Role Phone Carter RAMOS, Kleber Primary Care Physician Encounter [facility] Date(s): 07/18/22 - 08/17/22 [facility] [address] [place], [place] [address] Allergies, Adverse Reactions, Alerts Substance Reaction Severity Status penicillin Vaginal discharge symptom Ac tive Immunizations Given and Recorded Vaccine Date Status Refusal Reason pneumococcal 20-valent conjugate vaccine 11/08/21 Recorded zoster vaccine, inactivated 07/06/21 Recorded zoster vaccine, inactivated 05/06/21 Recorded SARS-CoV-2 (COVID-19) mRNA BNT-162b2 vac 05/20/21 Recorded SARS-CoV-2 (COVID-19) mRNA BNT-162b2 vac 11/20/20 Recorded SARS-CoV-2 (COVID-19) mRNA BNT-162r2 vac 10/30/20 Recorded influenza virus vaccine, inactivated [...] [facility] Medications alendronate 70 mg oral tablet 1 tablet = 70 mg, By Mouth, Every week, # 13 tablet, 6 Refills, Maintenance, 07/18/22 12:28:00 EST,Tablet, [facility]/pharmacy #[id number], Partial fill upon patient request if the prescription is for a scheduleII opioid drug., 159, cm, 04/10/22 9:49:00 EDT, Hei... Start Date: 07/18/22 Status: Ordered calcium-vitamin D 600 mg-400 intl units oral tablet 1 tablet, By Mouth, 2 times a day, # 60 tablet, 11 Refills, Maintenance, 07/18/22 12:28:00 EST, Tablet, [facility]/pharmacy #[id number], Partial fill upon patient request if [...] 03/27/22 8:31:00 EDT, Route to Pharmacy Electronically, [facility]/pharmacy #[id number], Partial fill upon patient request if [...] 1 Refills, Maintenance, 11/10/21 13:03:00 EDT, Tablet, [facility]/pharmacy #[id number], Partial fill upon patient request if [...] according to the product label. Follow the [facility] instructions stating when to drin k the prep fluid on the evening befoer the colonoscopy. 8 oz every 20 minutes., # 1 each, 0 Refi... Start Date: 03/27/22 Status: Ordered Senna-Time 8.6 mg oral tablet 1 OR 2 TABLETS, By Mouth, Daily at bedtime, PRN NEEDED FOR CONSTIPATION, # 60 tablet, 0 Refills,Maintenance, 04/25/22 20:10:00 EDT, [id number], 159, cm, 04/10/22 9:49:00 EDT, Height, 71.1, [...] Team Personnel Name: Kleber Machado MD Position: [facility] Primary Care Physician Member Role: PCP Address: Address: [address] [place] [address] Adult & [place] [address]- Care Team Related Persons Name: KIM WILD Address: home [address] [place] [id number] Name: INESSA HOLLEY Address: [place] [address]
--- OUTSIDE RECORDS SUMMARY | 2024-01-30 07:41 | XMS_ITS | Continuity of Care Document ---
Author Organization [facility] Address [address] [place] [address]- Care Team Providers Care Perianesthesia Manager Name Role Phone Kleber Machado MD Primary Care Physician Encounter [facility] [place] Date(s): 11/15/22 - 12/15/22 [facility] [address] [place], [place] [address] Attending Physician: Zara Crocker Admitting Physician: AdmZara hay Referring Physician: Admtr, ArYonas Allergies, Adverse Reactions, Alerts Substance Reaction Severity Status penicillin Vaginal discharge symptom Ac tive Immunizations Given and Recorded Vaccine Date Status Refusal Reason [id number] 12y+ bivalent booster vax 05/21/22 Recorded influenza [...] vaccine, inactivated 04/14/13 Ludwig rded SARS-CoV-2 mRNA ([id number]) vax 11/23/21 Recorded pneumococcal 20-valent conjugate vaccine 11/08/21 Recorded zoster vaccine, inactivated 07/06/21 Recorded zoster vaccine, inactivated 05/06/21 Recorded SARS-CoV-2 (COVID-19) mRNA BNT-162b2 vac 05/20/21 Recorded SARS-CoV-2 (COVID-19) mRNA BNT-162b2 vac 11/20/20 Recorded SARS-CoV-2 (COVID-19) mRNA BNT-162b2 vac 10/30/20 Recorded tetanus/diphtheria/pertussis, acel(Tdap) 1 01/11/17 Recorded 1Result Comment: given @ [facility] Medications acetaminophen 650 mg oral tablet, extended release 2 tablet, By Mouth, 3 times a day, PRN NEEDED, MODERATE PAIN., # 100 tablet, 0 Refills, Maintenance, 11/22/22 15:25:00 EDT, [id number], 157, cm, 11/15/22 8:07:00 EDT, Height, 71.1, [...] Gm, 0 Refills, Maintenance, 11/22/22 15:25:00 EDT, [id number], 30, PLEASE SEE ATTACHED FOR DETAILED DIRECTIONS, [...] Mouth, Daily, # 90 tablet, 0 Refills, 11/21/22 14:45:00 EDT, 157, cm, 11/15/22 8:07:00EDT, Height, 71.1, kg, 11/20/21 8:24:00 EDT, Dry Weight Start Date: 11/21/22 Status: Ordered Problem List Condition Confirmation Course Effective Dates Status H ealth Status Informant Alopecia Confirmed Active Anemia Confirmed Active Hypothyroid Confirmed Active Left foot pain Confirmed Active Ganglion of left ankle Confirmed Active GERD without esophagitis Confirmed Active Dyslipidemia Confirmed Active Sacroiliitis Confirmed Active Osteoporosis Confirmed Active *[id number] 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 Confirmed Active Acquired hypothyroidism Confirmed Active Insomnia Confirmed Active Reflux Confirmed Active Social History Social History Type Response Smoking Status Former smoker, quit more than 30 days ago; Other: quit smoking 15 years ago; entered on: 12/16/19 Sex Laboratory * Event Display: Non Lab [...] Team Personnel Name: Kleber Machado MD Position: [facility] Primary Care Physician Member Role: PCP Address: Address: [address] [place] [address] Adult [facility] [address] Care Team Related Persons Name: KIM WILD Address: home [address] [place] [address] Name: INESSA HOLLEY Address: [place] [address]
--- OUTSIDE RECORDS SUMMARY | 2024-01-30 07:41 | XMS_ITS | Continuity of Care Document ---
Author Organization [facility] Address [address] [place] [address]- Care Team Providers Care Health Therapist Name Role Phone Kleber Machado MD Primary Care Physician [phone] Encounter [facility] [place] ACCT R [id number] Date(s): 07/20/20 - 07/27/20 [facility] [address] [place], [place] [address] Encounter Diagnosis Tendinopathy of left rotator cuff(Discharge Diagnosis) - 07/20/20 Attending Physician: Kleber Machado MD Allergies, Adverse [...] Effective Dates Health Status Clinical Service Informant Tendinopathy of left rotator cuff Discharge Diagnosis 07/20/20 Social History Social History Type Response Smoking Status Former smoker, quit more than 30 days ago; Other: quit smoking 15 years ago; entered on: 12/16/19 Sex
--- OUTSIDE RECORDS SUMMARY | 2024-01-30 07:41 | XMS_ITS | Continuity of Care Document ---
Author Organization [facility] Address [address] [place] [address]- Care Team Providers Care Director Surgical Name Role Phone Kleber Machado MD Primary Care Physician Encounter [facility] [place] Date(s): 10/10/20 - 11/09/20 [facility] [address] [place], [place] [address] Attending Physician: Zara Crocker Admitting Physician: Zara Crocker Referring Physician: AdmtrZara Allergies, Adverse Reactions, Alerts Substance Reaction Severity Status penicillin Vaginal discharge symptom Ac tive Immunizations Given and Recorded Vaccine Date Status Refusal Reason tetanus/diphtheria/pertussis, acel(Tdap) 1 01/11/17 Recorded 1Result Comment: given @ [facility] Medications levothyroxine 75 mcg [...]
--- OUTSIDE RECORDS SUMMARY | 2024-01-30 07:41 | XMS_ITS | Continuity of Care Document ---
Author Organization [facility] Address [address] [place] [address]- Care Team Providers Care Rodeo Rider Name Role Phone Kleber Machado MD Primary Care Physician [phone] Encounter [facility] [place] ACCT R [id number] Date(s): 05/09/20 - 05/16/20 [facility] [address] [place] [address]- [facility] Encounter Diagnosis Left hip pain(Discharge Diagnosis) - 05/09/20 Attending Physician: Kleber Machado MD Allergies, Adverse [...] Dates Health Status Cl inical Service Informant Left hip pain Discharge Diagnosis 05/09/20 Social History Social History Type Response Smoking Status Former smoker, quit more than 30 days ago; Other: quit smoking 15 years ago; entered on: 12/16/19 Sex
--- OUTSIDE RECORDS SUMMARY | 2024-01-30 07:41 | XMS_ITS | Continuity of Care Document ---
Author Organization [facility] Address [address] [place] [address]- Care Team Providers Care Black Studies Professor Name Role Phone Carter RAMOS, [facility] Primary Care Physician Encounter [facility] Date(s): 01/23/23 - 02/23/23 [facility] [address] [place], [place] [address] Attending Physician: Hollis Blanco MD Allergies, Adverse Reactions, Alerts Substance Reaction Severity Status penicillin Vaginal discharge symptom Ac tive Immunizations Given and Recorded Vaccine Date Status Refusal Reason [id number] 12y+ bivalent booster vax 05/21/22 Recorded influenza [...] vaccine, inactivated 04/14/13 Ludwig rded SARS-CoV-2 mRNA ([id number]) vax 11/23/21 Recorded pneumococcal 20-valent conjugate vaccine 11/08/21 Recorded zoster vaccine, inactivated 07/06/21 Recorded zoster vaccine, inactivated 05/06/21 Recorded SARS-CoV-2 (COVID-19) mRNA BNT-162b2 vac 05/20/21 Recorded SARS-CoV-2 (COVID-19) mRNA BNT-162b2 vac 11/20/20 Recorded SARS-CoV-2 (COVID-19) mRNA BNT-162b2 vac 10/30/20 Recorded tetanus/diphtheria/pertussis, acel(Tdap) 1 01/11/17 Recorded 1Result Comment: given @ [facility] Medications acetaminophen 650 mg oral tablet, extended release 2 tablet, By Mouth, 3 times a day, PRN NEEDED, MODERATE PAIN., # 100 tablet, 0 Refills, Maintenance, 11/22/22 15:25:00 EDT, [id number], 157, cm, 11/15/22 8:07:00 EDT, Height, 71.1, [...] Gm, 0 Refills, Maintenance, 11/22/22 15:25:00 EDT, [id number], 30, PLEASE SEE ATTACHED FOR DETAILED DIRECTIONS, [...] Active Sacroiliitis Confirmed Active Osteoporosis Confirmed Active *[id number] Applications Support Lead Nasima Berumen Confirmed Active Acquired hypothyroidism Confirmed Active Insomnia Confirmed Active Reflux Confirmed Active Social History Social History Type Response Smoking Status Former smoker, quit more than 30 days ago; Other: quit smoking 15 years ago; entered on: 12/16/19 Sex Patient Care team information Care Team Personnel Name: Kleber Machado MD Position: [facility] Physician - Primary Care Member Role: PCP Address: Address: [address] [place] [address] Adult [place] [address]- Care Team Related Persons Name: KIM WILD Address: [address] [address] Name: INESSA HOLLEY Address: [place] [address]
--- OUTSIDE RECORDS SUMMARY | 2024-01-30 07:41 | XMS_ITS | Continuity of Care Document ---
Author Organization [facility] Address [address] [place] [address]- Care Team Providers Care Superintendent Operations Division Name Role Phone Kleber Machado MD Primary Care Physician [place] [facility] [place]/10[place]22 - 08/09/22 [facility] [address] [place], [place] [address] Allergies, Adverse Reactions, Alerts Substance Reaction [...] Comment: given @ [facility] Medications alendronate 70 mg oral tablet [...] according to the product label. Follow the [facility] instructions stating when to drin k the prep fluid on the evening befoer the colonoscopy. 8 oz every 20 minutes., # 1 each, 0 Refi... Start Date: 03/27/22 Status: Ordered Senna-Time 8.6 mg oral tablet 1 OR 2 TABLETS, By Mouth, Daily at bedtime, PRN NEEDED FOR CONSTIPATION, # 60 tablet, 0 Refills,Maintenance, 04/25/22 20:10:00 EDT, [facility], 159, cm, 04/10/22 9:49:00 EDT, Height, 71.1, [...] Team Personnel Name: Kleber Machado MD Position: [facility] Primary Care Physician Member Role: PCP Address: Address: [address] [place] [address] Adult & [place] [address]- Care Team Related Persons Name: KIM WILD Address: home [address] [place] [id number] Name: INESSA HOLLEY Address: [place] [address]
--- OUTSIDE RECORDS SUMMARY | 2024-01-30 07:41 | XMS_ITS | Continuity of Care Document ---
Author Organization [facility] Address [address] [place] [address]- Care Team Providers Care Land Developer Name Role Phone Kleber Machado MD Primary Care Physician [phone] Encounter [facility] [place] Date(s): 12/06/21 - 01/05/22 [facility] [address] [place], [place] [address] Attending Physician: Zara Crocker Admitting [...] Refills, Maintenance, 11/10/21 13:03:00 EDT, Tablet, [facility]/pharmacy #[id number], Partial fill upon patient request [...] 11/08/21 9:04:00 EDT, Route to Pharmacy Electronically, [facility]/pharmacy #[id number], Partial fill upon patient request [...]
== END 2024-01-27 16:48 | disposition home or self-care (01) ==
PROVIDERS: PCP Internal Medicine; Visit Provider Ophthalmology
PROC: (CPT 15823; principal; 2024-01-27 13:40)
DX: H02.831 Dermatochalasis of right upper eyelid (principal); H02.834 Dermatochalasis of left upper eyelid; E03.9 Hypothyroidism, unspecified; M81.0 Age-related osteoporosis without current pathological fracture; L65.9 Nonscarring hair loss, unspecified; Z79.899 Other long term (current) drug therapy; Z88.0 Allergy status to penicillin; Z91.040 Latex allergy status; Z87.891 Personal history of nicotine dependence
CPT/HCPCS: 15823; J2250; J3010